=== PATIENT | female | born 1995 | race Caucasian/White ===

== ENCOUNTER → 2017-01-15 | Outpatient (CLI) | payer OTHER ==
--- NOTE | 2017-01-15 13:29 | REP ---
Clinical: Dating and viability. Positive test. Technique: Transabdominal and transvaginal first trimester obstetrical ultrasound with color Doppler evaluation. Findings: Anteverted uterus measures 8.5 x 3.9 x 5.5 cm. Thickened endometrium suggests decidual reaction. A presumed gestational sac is identified with mean sac diameter corresponding to 5 weeks 1 day gestational age. No definable pole or yolk sac identified. Left ovary is not visualized. Right ovary measures 4.4 x 2.8 x 2.4 cm; RI equal 0.46 and includes 2.2 cm hemorrhagic corpus luteal cyst. Impression: Differential diagnosis includes early , spontaneous /blighted ovum, and less likely ectopic . Correlation with serial HCG levels recommended and repeat ultrasound may be obtained as necessary. Signed by Daniel Bean MD 01/15/2017 01:20 P
== END ==
LOC: M LAB 12:28
PROVIDERS: ATTEND Nurse Practitioner Family
DX: Z32.00 Encounter for pregnancy test, result unknown (principal)

== ENCOUNTER → 2017-01-22 | Outpatient (CLI) | payer OTHER ==
--- NOTE | 2017-01-22 12:37 | REP ---
Clinical: Dating and viability. Technique: Transabdominal and transvaginal first trimester obstetrical ultrasound with color Doppler evaluation. Comparison: 01/15/2017. Findings: Anteverted uterus is again identified measuring 9.3 x 4.6 x 6.0 cm and a gestational sac is noted without yolk sac or pole. Mean sac diameter currently measures 10.3 mm corresponding to 5 weeks 5 days gestational age and appears to have appropriately increased from prior examination. No pelvic fluid or gross abnormalities are noted. Impression: Empty gestational sac is again identified but appropriately increased in size when compared to recent prior examination. Differential diagnosis again includes early normal intrauterine , blighted ovum, and less likely ectopic . Correlation with HCG levels is recommended. Signed by Daniel Bean MD 01/22/2017 12:29 P
== END ==
LOC: M RAD 11:38
PROVIDERS: ATTEND Nurse Practitioner Family
DX: Z36 Encounter for antenatal screening of mother (principal); Z3A.01 Less than 8 weeks gestation of pregnancy

== ENCOUNTER → 2017-04-24 | Outpatient (REF) | payer OTHER | LOC: M LAB REF 20:49 | PROVIDERS: ATTEND Physician Assistant Medical | DX: R30.0 Dysuria (principal); R10.9 Unspecified abdominal pain ==

== ENCOUNTER → 2017-05-11 | Outpatient (REF) | payer OTHER | LOC: M LAB REF 20:42 | PROVIDERS: ATTEND Physician Assistant | DX: J02.9 Acute pharyngitis, unspecified (principal) ==

== ENCOUNTER → 2017-11-19 | Outpatient (REF) | payer OTHER | LOC: M LAB REF 19:29 | DX: J02.9 Acute pharyngitis, unspecified (principal) ==

== ENCOUNTER → 2018-07-29 | Outpatient (REF) | payer OTHER ==
[2018-07-29 19:33] LABS: CHLAMYDIA DNA AMPLIFICATION NEGATIVE (NEGATIVE); GC DNA AMPLIFICATION NEGATIVE (NEGATIVE)
== END ==
LOC: M LAB REF 16:42
DX: Z20.2 Contact with and (suspected) exposure to infections with a predominantly sexual mode of transmission (principal)
CPT/HCPCS: 87591

== ENCOUNTER 2019-07-16 17:01 | Emergency (ER) | payer OTHER ==
[~2019-07-16] VITALS: Ht 172.7 cm; Wt 77.3 kg
[2019-07-16 19:53] LABS: BASO # 0.1 10^3/uL (0.0-0.2); EOS # 0.1 10^3/uL (0.0-0.5); EOS % 0.6 % (0.0-3.0); HEMATOCRIT 43.4 % (36.0-47.0); HEMOGLOBIN 13.9 g/dl (12.0-15.5); LYMPH # 2.3 10^3/uL (1.5-5.0); LYMPH % 27.9 % (24.0-44.0); MEAN CORPUSCULAR HEMOGLOBIN 29.6 pg (27.0-33.0); MEAN CORPUSCULAR VOLUME 92.5 fl (80.0-96.0); MONO # 0.6 10^3/uL (0.0-0.8); MONO % 7.5 % (0.0-5.0); NEUTROPHILS # 5.1 10^3/uL (1.5-8.5); NEUTROPHILS % 62.6 % (36.0-66.0); PLATELET COUNT, AUTOMATED 335 10^3/uL (150-450); RED BLOOD COUNT 4.69 10^6/uL (4.00-5.40); WHITE BLOOD COUNT 8.2 10^3/uL (4.0-10.0)
[2019-07-16 20:14] LABS: ALBUMIN 3.8 GM/DL (3.2-5.2); ALT/SGPT 22 U/L (12-78); BILIRUBIN,TOTAL 2.4 MG/DL (0.2-1.0); BLOOD UREA NITROGEN 6 MG/DL (7-18); CALCIUM LEVEL 9.3 MG/DL (8.5-10.1); CARBON DIOXIDE LEVEL 30 MEQ/L (21-32); CHLORIDE LEVEL 107 MEQ/L (98-107); CREATININE FOR GFR 0.61 MG/DL (0.55-1.30); GLOMERULAR FILTRATION RATE > 60.0 (>60); GLUCOSE, FASTING 90 MG/DL (70-100); POTASSIUM SERUM 3.8 MEQ/L (3.5-5.1); SODIUM LEVEL 141 MEQ/L (136-145); TOTAL PROTEIN 7.3 GM/DL (6.4-8.2)
[2019-07-16 21:43] LABS: HCG, SERUM QUALITATIVE NEGATIVE (NEGATIVE)
[2019-07-16] MEDS ORDERED: metroNIDAZOLE (FLAGYL) 500 MG TAB PO ONE (22:15)
[2019-07-16] MEDS ORDERED: cefTRIAXone SOD 250 MG VIAL (J0696) IM ONE (22:15)
[2019-07-16] MEDS ORDERED: AZITHROMYCIN 250 MG TAB PO ONE (22:15)
[2019-07-16] MEDS ORDERED: ULIPRISTAL ACETATE 30 MG TAB (ELLA) PO ONE (22:15)
[2019-07-16] MEDS ORDERED: LIDOCAINE 1% SDV 5 ML VIAL DILUENT ONE (22:15)
[2019-07-17 05:41] VITALS: BP 121/70
[2019-07-17 10:06] LABS: HEPATITIS B SURFACE ANTIBODY NEGATIVE (POSITIVE)
[2019-07-17 10:16] LABS: HEPATITIS B SURFACE ANTIGEN NEGATIVE (NEGATIVE)
[2019-07-17 10:45] LABS: HIV 1&2 SCREEN CENTAUR NEGATIVE (NEGATIVE)
== END 2019-07-17 05:53 | disposition home or self-care (01) ==
LOC: M ED 17:01
DX: T76.21XA Adult sexual abuse, suspected, initial encounter (principal); S20.01XA Contusion of right breast, initial encounter; S20.02XA Contusion of left breast, initial encounter; X58.XXXA Exposure to other specified factors, initial encounter; Y92.008 Other place in unspecified non-institutional (private) residence as the place of occurrence of the external cause
CPT/HCPCS: 36415; 80053; 84703; 85025; 86706; 86780; 86803; 87340; 87389; 96372; 99284; J0696

== ENCOUNTER 2020-10-02 11:14 | Emergency (ER) | payer OTHER ==
[~2020-10-02] VITALS: Ht 170.2 cm; Wt 82.4 kg
--- OUTSIDE RECORDS SUMMARY | 2020-10-02 11:20 | CCD | Continuity of Care Document ---
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[employer] Name Role Phone Pamella Croft AUTM [phone] [facility] AUTM [phone] Problems Active Problems Provider Date Bg Schuster NP Onset: 01/04/2020 Premenstrual dysphoric disorder Juliette Schuster NP Onset: 1 10/13/2019 Social History Type Date Description Comments Sex Unknown Tobacco Use Start: Unknown Never Smoked Cigarettes Tobacco Use Start: Unknown Never Smoked Cigars Tobacco Use Start: Unknown Never Smoked A Pipe Tobacco Use Start: Unknown Never Used Smokeless Tobacco ETOH Use Occasionally consumes alcohol Tobacco Use Start: Unknown Patient has never smoked Recreational Drug Use Denies Drug Use Seat Belt/Car Seat Always uses seat belt Allergies, Adverse Reactions, Alerts Active Allergies Reaction Severity Comments Date NKDA 09/01/2016 NKFA 09/01/2016 NKEA 09/01/2016 Medications Active Medications SIG Qnty Indications Ordering Provide r Date Xulane 150-35mcg/24HR Patches Week ly 1 patch every week, 4th week off to cycle 1units Z30.016 Herber Landaverde M.D. 08/12/2020 Prozac 20mg Capsules take one pill daily starting 2 wk prior to menstral onset 14caps F32.81 Herber Landaverde M.D. 08/12/2020 History Medications No Active Medications Unknown - 08/12/2020 Fluconazole 150mg Tablets take 1 by mouth once on days 1, 3 and 7 #3 3tabs Waqar Lovelace. 07/18/2020 - 08/12/2020 Immunizations Description No Information Available Vital Signs Date Vital Result Comment 08/12/2020 2:04pm BP Systolic 104 mmHg BP Diastolic 70 mmHg Heart Rate 101 /min Respiratory Rate 18 /min Weight 186.38 lb Weight 84.540 kg 01/04/2020 2:02pm BP Systolic 124 mmHg BP Diastolic 72 mmHg Heart Rate 109 /min Body Temperature 97.9 F Weight 190.00 lb Weight 86.184 kg Results Description No Information Available Procedures Description No Information Available Medical Devices Description No Information Available Encounters Type Date Location Provider Dx Diagnosis Office Visit 08/12/2020 2:00p [facility] Juliette Schuster NP F32.81 Premenstrual dysphoric disorder Z30.45 Enctr srvlnc transdermal pat ch hormonal contraceptive device Assessments Date Code Description Provider 08/12/2020 F32.81 Premenstrual dysphoric disorder Juliette Schuster NP 08/12/2020 Z30.45 Encounter for survei llance of transdermal patch hormonal contraceptive device Juliette Schuster NP Plan of Treatment 08/12/2020 - Juliette Schuster NP* F32.81 Premenstrual dysphoric disorder* New Medication:* Prozac 20 mg - take one pill daily starting 2 wk prior to menstral onset * Follow up:* 3 months * Recommendations:* discussed PMDD and use of med for sx control. Willing to try use and would like to restart patch as liked that for method. Discussed use SSRI med for sx and to moniter . If feels sx helped may also see pcp for continued use for daily use. * Z30.45 Encounter for surveillance of transdermal patch hormonal contraceptive device* Recommendations:* restart patch as directed. Functional Status Description No Information Available Mental Status Description No Information Available Referrals Description No Information Available
[2020-10-02] MEDS ORDERED: LORA1TAB4 PO (11:21)
--- OUTSIDE RECORDS SUMMARY | 2020-10-02 11:21 | CCD ---
Author Author [facility] Organization [facility] Address Unknown Phone Unavailable Care Team Providers Care Tank Terminal Gauger Name Role Phone Sylvie Akbar MD Unavailable Unavailable Sylvie Akbar MD Unavailable Unavailable Sylvie Akbar MD Unavailable Unavailable Sylvie Akbar MD Unavailable Unavailable Sylvie Akbar MD Unavailable Unavailable Sylvie Akbar MD Unavailable Unavailable Sylvie Akbar MD Unavailable Unavailable Sylvie Akbar MD Unavailable Unavailable Sylvie Akbar MD Unavailable Unavailable Sylvie Akbar MD Unavailable Unavailable Sylvie Akbar MD Unavailable Unavailable Sylvie Akbar MD Unavailable Unavailable Sylvie Akbar MD Unavailable Unavailable Sylvie Akbar MD Unavailable Unavailable Sylvie Akbar MD Unavailable Unavailable Sylvie Akbar MD Unavailable Unavailable Sylvie Akbar MD Unavailable Unavailable Sylvie Akbar MD Unavailable Unavailable Sylvie Akbar MD Unavailable Unavailable Sylvie Akbar MD Unavailable Unavailable Sylvie Akbar MD Unavailable Unavailable Sylvie Akbar MD Unavailable Unavailable Sylvie Akbar MD Unavailable Unavailable Raffy, Sylvie Boles MD Unavailable Unavailable Raffy, Sylvie Boles MD Unavailable Unavailable Raffy, Sylvie Boles MD Unavailable Unavailable Raffy, Sylvie Boles MD Unavailable Unavailable Raffy, Sylvie Boles MD Unavailable Unavailable Raffy, Sylvie Boles MD Unavailable Unavailable Raffy, Sylvie Boles MD Unavailable Unavailable Raffy, Sylvie Boles MD Unavailable Unavailable Raffy, Sylvie Boles MD Unavailable Unavailable Raffy, Sylvie Boles MD Unavailable Unavailable Raffy, Sylvie Boles MD Unavailable Unavailable Raffy, Sylvie Boles MD Unavailable Unavailable Rfafy, Sylvie Boles MD Unavailable Unavailable Raffy, Sylvie Boles MD Unavailable Unavailable Raffy, Sylvie Boles MD Unavailable Unavailable Raffy, Sylvie Boles MD Unavailable Unavailable Raffy, Sylvie Boles MD Unavailable Unavailable Raffy, Sylvie Boles MD Unavailable Unavailable Raffy, Sylvie Boles MD Unavailable Unavailable Raffy, Sylvie Boles MD Unavailable Unavailable Raffy, Sylvie Boles MD Unavailable Unavailable Raffy, Sylvie Boles MD Unavailable Unavailable Raffy, Sylvie Boles MD Unavailable Unavailable Raffy, Sylive Boles MD Unavailable Unavailable Raffy, Sylvie Boles MD Unavailable Unavailable Raffy, Sylvie Boles MD Unavailable Unavailable Raffy, Sylvie Boles MD Unavailable Unavailable Raffy, Sylvie Boles MD Unavailable Unavailable Raffy, Sylvie Boles MD Unavailable Unavailable Raffy, Sylvie Boles MD Unavailable Unavailable Raffy, Sylvie Boles MD Unavailable Unavailable Raffy, Sylvie Boles MD Unavailable Unavailable Raffy, Sylvie Boles MD Unavailable Unavailable Raffy, Sylvie Boles MD Unavailable Unavailable Raffy, Sylvie Boles MD Unavailable Unavailable Raffy, Sylvie Boles MD Unavailable Unavailable Raffy, Sylvie Boles MD Unavailable Unavailable Raffy, Sylvie Boles MD Unavailable Unavailable Raffy, Sylvie Bolse MD Unavailable Unavailable Raffy, Sylvie Boles MD Unavailable Unavailable Raffy, Sylvie Boles MD Unavailable Unavailable Raffy, Sylvie Boles MD Unavailable Unavailable Raffy, Sylvie Boles MD Unavailable Unavailable Raffy, Sylvie Boles MD Unavailable Unavailable Raffy, Sylvie Boles MD Unavailable Unavailable Raffy, Sylvie Boles MD Unavailable Unavailable Raffy, Sylvie Boles MD Unavailable Unavailable Raffy, Sylvie Boles MD Unavailable Unavailable Raffy, Sylvie Boles MD Unavailable Unavailable Raffy, Sylvie Boles MD Unavailable Unavailable Raffy, Sylvie Boles MD Unavailable Unavailable Raffy, Sylvie Boles MD Unavailable Unavailable [place], Loren Piper MD Unavailable Unavailable [place], Loren Piper MD Unavailable Unavailable [place], Loren Piper MD Unavailable Unavailable [place], Loren Piper MD Unavailable Unavailable [place], Loren Piper MD Unavailable Unavailable [place], Loren Piper MD Unavailable Unavailable [place], Loren Piper MD Unavailable Unavailable [place], Loren Piper MD Unavailable Unavailable [place], Loren Piper MD Unavailable Unavailable [place], Loren Piper MD Unavailable Unavailable [place], Loren Piper MD Unavailable Unavailable [place], Loren Piper MD Unavailable Unavailable [place], Loren Piper MD Unavailable Unavailable [place], Loren Piper MD Unavailable Unavailable [place], Loren Piper MD Unavailable Unavailable [place], Loren Piper MD Unavailable Unavailable [place], Loren Piper MD Unavailable Unavailable [place], Loren Piper MD Unavailable Unavailable [place], Loren Piper MD Unavailable Unavailable [place], Loren Piper MD Unavailable Unavailable [place], Loren Piper MD Unavailable Unavailable [place], Loren Piper MD Unavailable Unavailable [place], Loren Piper MD Unavailable Unavailable [place], Loren Piper MD Unavailable Unavailable [place], Loren Piper MD Unavailable Unavailable [place], Loren Piper MD Unavailable Unavailable [place], Loren Piper MD Unavailable Unavailable [place], Loren Piper MD Unavailable Unavailable [place], Loren Piper MD Unavailable Unavailable [place], Loren Piper MD Unavailable Unavailable [place], Loren Piper MD Unavailable Unavailable [place], Loren Piper MD Unavailable Unavailable [place], Loren Piper MD Unavailable Unavailable [place], Loren Piper MD Unavailable Unavailable [place], Loren Piper MD Unavailable Unavailable [place], Loren Piper MD Unavailable Unavailable [place], Loren Piper MD Unavailable Unavailable [place], Loren Piper MD Unavailable Unavailable [place], Loren Piper MD Unavailable Unavailable [place], Loren Piper MD Unavailable Unavailable [place], Loren Piper MD Unavailable Unavailable [place], Loren Piper MD Unavailable Unavailable [place], Loren Piper MD Unavailable Unavailable [place], Loren Piper MD Unavailable Unavailable [place], Loren Piper MD Unavailable Unavailable [place], Loren Piper MD Unavailable Unavailable [place], Loern Piper MD Unavailable Unavailable [place], Loren Piper MD Unavailable Unavailable [place], Loren Piper MD Unavailable Unavailable [place], Loren Piper MD Unavailable Unavailable [place], Loren Piper MD Unavailable Unavailable [place], Loren Piper MD Unavailable Unavailable [place], Loren Piper MD Unavailable Unavailable [place], Loren Piper MD Unavailable Unavailable [place], Loren Piper MD Unavailable Unavailable [place], Loren Piper MD Unavailable Unavailable [place], Loren Piper MD Unavailable Unavailable [place], Loren Piper MD Unavailable Unavailable [place], Loren Piper MD Unavailable Unavailable [place], Loren Piper MD Unavailable Unavailable [place], Loren Piper MD Unavailable Unavailable [place], Loren Piper MD Unavailable Unavailable [place], Loren Piper MD Unavailable Unavailable [place], Loren Piper MD Unavailable Unavailable [place], Loren Piper MD Unavailable Unavailable [place], Loren Piper MD Unavailable Unavailable [place], Loren Piper MD Unavailable Unavailable [place], Loren Piper MD Unavailable Unavailable [place], Loren Piper MD Unavailable Unavailable [place], Loren Piper MD Unavailable Unavailable [place], Loren Piper MD Unavailable Unavailable [place], Loren Piper MD Unavailable Unavailable [place], Loren Piper MD Unavailable Unavailable [place], Loren Piper MD Unavailable Unavailable [place], Loren Piper MD Unavailable Unavailable [place], Loren Piper MD Unavailable Unavailable Andrade, Kali Billie IMAGER Unavailable Unavailable AndradeRachele Billie IMAGER Unavailable Unavailable Andrade Kali Billie IMAGER Unavailable Unavailable Andrade, Kali Billie IMAGER Unavailable Unavailable Andrade, Kali Billie IMAGER Unavailable Unavailable Andrade, Kali Billie IMAGER Unavailable Unavailable PRYBYLOWSKI, E TWAN PA Unavailable Unavailable PRYBYLOWSKI, E TWAN PA Unavailable Unavailable PRYBYLOWSKI, E TWAN PA Unavailable Unavailable PRYBYLOWSKI, E TWAN PA Unavailable Unavailable PRYBYLOWSKI, E TWAN PA Unavailable Unavailable PRYBYLOWSKI, E TWAN PA Unavailable Unavailable PRYBYLOWSKI, E TWAN PA Unavailable Unavailable PRYBYLOWSKI, E TWAN PA Unavailable Unavailable PRYBYLOWSKI, E TWAN PA Unavailable Unavailable PRYBYLOWSKI, E TWAN PA Unavailable Unavailable PRYBYLOWSKI, E TWAN PA Unavailable Unavailable PRYBYLOWSKI, E TWAN PA Unavailable Unavailable PRYBYLOWSKI, E TWAN PA Unavailable Unavailable PRYBYLOWSKI, E TWAN PA Unavailable Unavailable PRYBYLOWSKI, E TWAN PA Unavailable Unavailable PRYBYLOWSKI, E TWAN PA Unavailable Unavailable TURRIN, BENI Unavailable Unavailable TURRIN, BENI Unavailable Unavailable TURRIN, BENI Unavailable Unavailable TURRIN, BENI Unavailable Unavailable Loren CANADA Unavailable Unavailable SHAH, KALI KWAKU DYE HOUSE SUPERVISOR Unavailable Unavailable SHAH, KALI KWAKU DYE HOUSE SUPERVISOR Unavailable Unavailable SHAH, KALI KWAKU DYE HOUSE SUPERVISOR Unavailable Unavailable SHAH, KALI KWAKU DYE HOUSE SUPERVISOR Unavailable Unavailable SHAH, KALI KWAKU DYE HOUSE SUPERVISOR Unavailable Unavailable SHAH, KALI KWAKU DYE HOUSE SUPERVISOR Unavailable Unavailable SHAH, KALI KWAKU DYE HOUSE SUPERVISOR Unavailable Unavailable SHAH, KALI KWAKU DYE HOUSE SUPERVISOR Unavailable Unavailable SHAH, KALI KWAKU DYE HOUSE SUPERVISOR Unavailable Unavailable SHAH, KALI KWAKU DYE HOUSE SUPERVISOR Unavailable Unavailable SHAH, KALI KWAKU DYE HOUSE SUPERVISOR Unavailable Unavailable SHAH, KALI KWAKU DYE HOUSE SUPERVISOR Unavailable Unavailable SHAH, KALI KWAKU DYE HOUSE SUPERVISOR Unavailable Unavailable SHAH, KALI KWAKU DYE HOUSE SUPERVISOR Unavailable Unavailable SHAH, KALI KWAKU DYE HOUSE SUPERVISOR Unavailable Unavailable SHAH, KALI KWAKU DYE HOUSE SUPERVISOR Unavailable Unavailable SHAH, KALI KWAKU DYE HOUSE SUPERVISOR Unavailable Unavailable SHAH, KALI KWAKU DYE HOUSE SUPERVISOR Unavailable Unavailable SHAH, KALI KWAKU DYE HOUSE SUPERVISOR Unavailable Unavailable SHAH, KALI KWAKU DYE HOUSE SUPERVISOR Unavailable Unavailable SHAH, KALI KWAKU DYE HOUSE SUPERVISOR Unavailable Unavailable SHAH, KALI KWAKU DYE HOUSE SUPERVISOR Unavailable Unavailable SHAH, KALI KWAKU DYE HOUSE SUPERVISOR Unavailable Unavailable Meghan Mireles PA Unavailable Unavailable Meghan Mireles PA Unavailable Unavailable Meghan Mireles Unavailable Unavailable Meghan Mireles PA Unavailable Unavailable Meghan Mireles PA Unavailable Unavailable Meghan Mireles PA Unavailable Unavailable Meghan Mireles PA Unavailable Unavailable Meghan Mireles PA Unavailable Unavailable FroidMeghan roth PA Unavailable Unavailable Meghan Mireles PA Unavailable Unavailable Meghan Mireles PA Unavailable Unavailable Meghan Mireles PA Unavailable Unavailable Meghan Mireles PA Unavailable Unavailable Meghan Mireles PA Unavailable Unavailable Meghan Mireles PA Unavailable Unavailable Meghan Mireles PA Unavailable Unavailable Meghan Mireles PA Unavailable Unavailable Meghan Mireles PA Unavailable Unavailable Meghan Mireles PA Unavailable Unavailable Meghan Mireles PA Unavailable Unavailable Meghan Mireles PA Unavailable Unavailable Meghan Mireles PA Unavailable Unavailable Meghan KO MD Unavailable Unavailable Meghan KO MD Unavailable Unavailable Meghan KO MD Unavailable Unavailable Meghan KO MD Unavailable Unavailable Meghan KO MD Unavailable Unavailable Meghan KO MD Unavailable Unavailable Meghan KO MD Unavailable Unavailable Meghan KO MD Unavailable Unavailable Meghan KO MD Unavailable Unavailable Re-disclosure Warning The records that you are about to access may contain information from federally-assisted alcohol or drug abuse programs. If such information is present, then the following federally mandated warning applies: This information has been disclosed to you from records protected by federal confidentiality rules (42 CFR part 2). The federal rules prohibit you from making any further disclosure of this information unless further disclosure is expressly permitted by the written consent of the person to whom it pertains or as otherwise permitted by 42 CFR part 2. A general authorization for the release of medical or other information is NOT sufficient for this purpose. The Federal rules restrict any use of the information to criminally investigate or prosecute any alcohol or drug abuse patient.The records that you are about to access may contain highly sensitive health information, the redisclosure of which is protected by Article 27-F of the [facility] Public Health law. If you continue you may have access to information: Regarding HIV / AIDS; Provided by facilities licensed or operated by the [facility] Office of Mental Health; or Provided by the [facility] Office for People With Developmental Disabilities. If such information is present, then the following [facility] mandated warning applies: This information has been disclosed to you from confidential records which are protected by state law. State law prohibits you from making any further disclosure of this information without the specific written consent of the person to whom it pertains, or as otherwise permitted by law. Any unauthorized further disclosure in violation of state law may result in a fine or group home sentence or both. A general authorization for the release of medical or other information is NOT sufficient authorization for further disc losure. Allergies and Adverse Reactions Type Description Substance Reaction Status Data Source(s ) No Known Drug Allergies No Known Drug Allergies [facility] No Known Environmental Allergies No Known Environmental Al lergies [facility] No Known Food Allergies No Known Food Allergies [facility] Family History Family Member Name Family Member Gender Family Member Status Date o f Status Description Data Source(s) Unknown Male Problem [facility] ([facility]) Unknown Unknown Problem [facility] ([facility] Encounters Encounter Providers Location Date Indications Data Source(s ) Emergency Attender: BENI Espinalsultant: Alexa solorzano MD 10/01/2020 04:57:00 AM EST - 10/01/2020 05:42:00 AM EST [facility] Patient discharged. Emergency Attender: CHAYA Millerant: Alexa Perry MD 09/01/2020 06:12:00 AM EST - 09/01/2020 06:48:00 AM EST [facility] Patient discharged. Outpatient Attender: KWAKU SHAH NPConsultant: Alexa trimble MD 08/12/2020 02:02:00 PM EST - 08/12/2020 02:02:00 PM [facility] Outpatient Attender: KWAKU SHAH DYE HOUSE SUPERVISOR Family Practice 08/12/2020 01 :00:00 PM EST [facility] ([facility]) Emergency Attender: GARETT KO MDConsultant: Alexa pastor MD 07/06/2020 06:03:00 AM EST - 07/06/2020 08:25:00 AM [facility] Patient discharged. Attender: Elvi Simeon 09:24:00 AM EDT - 02/15/2020 09:24:00 AM EDT [facility] ([facility]) OutpatientOFFICE VISIT, EST Attender: Bree munoz 02/14/2020 03:15:00 PM EDT - 02/14/2020 03:15:00 PM EDT Encntr for f/u exam aft trtmt for cond oth than malig neoplmEncounter for oth general cnsl and advice on contraceptionOther sex counseling [facility] ([facility]) Encntr for f/u exam aft trtmt for cond o th than malig neoplm Encounter for oth general cnsl and advic e on contraception Other sex counseling OutpatientOFFICE VISIT, EST. Post AB Attender: Bree Simeon 01/24/2020 03:30:00 PM EDT - 01/24/2020 03:30:00 PM ED T Encntr for f/u exam aft trtmt for cond oth than malig neoplmEncounter for oth general cnsl and advice on contraceptionOther sex counseling [facility] ([facility]) Encntr for f/u exam aft trtmt for cond o th than malig neoplm Encounter for oth general cnsl and advic e on contraception Other sex counseling Attender: Bree Simeon 12/29 11:30:00 AM EDT - 01/17/2020 11:30:00 AM EDT Encounter for elective termination of pregnancyProblems related to unwanted pregnancyEncounter for initial prescription of contraceptive pillsEncounter for ot general cnsl and advice on contraceptionOther sex counseling [facility] ([facility]) Encounter for elective termination of pr egnancy Problems related to unwanted Encounter for initial prescription of co ntraceptive pills Encounter for ot general cnsl and advic e on contraception Other sex counseling Outpatient Attender: KWAKU SHAH NPConsultant: Alexa trimble MD 01/04/2020 01:52:00 PM EDT - 01/04/2020 01:52:00 PM EDT [facility] Attender: TWAN Singletary 12:29:00 PM EST - 10/30/2019 12:29:00 PM EST [facility] Attender: Billie Simeon 10/24/2019 01:00:00 PM EST - 10/24/2019 01:00:00 PM EST Trichomonal vulvovaginitisEncntr for f/u exam aft trtmt for cond oth than malig neoplmEncounter for surveillance of contraceptive pillsAcute vaginitisEncounter for ot general cnsl and advice on cont raceptionOther sex counseling [facility] ([facility]) Trichomonal vulvovaginitis Encntr for f/u exam aft trtmt for cond o th than malig neoplm Encounter for surveillance of contracept jam pills Acute vaginitis Encounter for oth general cnsl and advic e on contraception Other sex counseling Attender: Billie Simeon 10/05/2019 02:45:00 PM EST - 10/05/2019 02:45:00 PM EST Encounter for other preprocedural examinationEncounter for elective termination of pregnancyEncounter for other specified special examinationsUnspecified blood type, Rh positiveOther sex counseling [facility] ([facility]) Encounter for other preprocedural examin ation Encounter for elective termination of pr egnancy Encounter for other specified special ex aminations Unspecified blood type, Rh positive Other sex counseling Attender: Bree Simeon 09/01 10:00:00 AM EST - 09/29/2019 10:00:00 AM EST NauseaEncounter for initial prescription of contraceptive pillsEncounter for preprocedural laboratory examinationEncounter for other preprocedural examinationWeeks of gestation of not specified Encounter for oth general cnsl and advice on contraceptionOther sex counselingHigh risk heterosexual behaviorEncntr screen for infections w sexl mode of transmissUnspecified blood type, Rh positiveEncounter for other specified special examinations state, incidentalProblems related to unwanted pregnancyEncounter for test, result positive [facility] ([facility]) Nausea Encounter for initial prescription of co ntraceptive pills Encounter for preprocedural laboratory e xamination Encounter for other preprocedural examin ation Weeks of gestation of not spec ified Encounter for oth general cnsl and advic e on contraception Other sex counseling High risk heterosexual behavior Encntr screen for infections w sexl mode of transmiss Unspecified blood type, Rh positive Encounter for other specified special ex aminations state, incidental Problems related to unwanted Encounter for test, result pos itive Medications Medication Brand Name Start Date Product Form Dose Route Admi nistrative Instructions Pharmacy Instructions Status Indications Reaction Description Data Source(s) 5-325 mg 09/01/2020 12:00:00 AM EST tablet 10 TAKE ONE TABLET BY MOUTH EVERY 8 HOURS NEEDED FOR PAIN MAXIMUM DAILY DOSE = 3 TAKE ONE TABLET BY MOUTH EVERY 8 HOURS NEEDED FOR PAIN MAXIMUM DAILY DOSE = 3 SOLD: 09/01/2020 [facility] 500 mg 09/01/2020 12:00:00 AM EST capsule 20 TAKE ONE CAPSULE BY MOUTH TWICE A DAY FOR TEN DAYS TAKE ONE CAPSULE BY MOUTH TWICE A DAY FOR TEN DAYS ELIZA [facility] No Active Medications 08/12/2020 12:00:00 AM EST completed [facility] ([facility] 168 HR Ethinyl Estradiol 0.82816 MG/HR / norelgestromin 0.89643 MG/HR Transdermal Patch [Xulane] Xulane 08/12/2020 12:00:00 AM EST active [facility] ([facility]) Fluoxetine 20 MG Oral Capsule [Prozac] Prozac 08/12/2020 12:00:00 A M EST active [facility] ([facility]) Fluconazole 150 MG Oral Tablet Fluconazole 07/18/2020 12:00:00 AM EST ORAL completed [facility] ([facility]) 150 mg 07/18/2020 12:00:00 AM EST tablet 3 TAKE ONE TABLET BY MOUTH ONCE ON DAYS 1, 3 AND 7 TAKE ONE TABLET BY MOUTH ONCE ON DAYS 1, 3 AND 7 SOLD: 07/18/2020 [facility] 25 mg 07/07/2020 12:00:00 AM EST tablet 28 TAKE ONE TABLET BY MOUTH FOUR TIMES A DAY NEEDED FOR ANXIETY TAKE ONE TABLET BY MOUTH FOUR TIMES A DA Y NEEDED FOR ANXIETY SOLD: 07/18/2020 [facility] 4 mg 01/17/2020 12:00:00 AM EDT tablet 4 TAKE ONE TABLET BY MOUTH EVERY 4 HOURS NEEDED TAKE ONE TABLET BY MOUTH EVERY 4 HOURS NEEDED SOLD: 01/17/2020 [facility] Ibuprofen 800 MG Oral Tablet ibuprofen 800 mg tablet ibuprof en 800 mg tablet 01/17/2020 12:00:00 AM EDT active 1 tab po every 8 hours prn [facility] ([facility]) Acetaminophen 300 MG / Codeine Phosphate 30 MG Oral Tablet acetaminophen 300 mg- codeine 30 mg tablet acetaminophen 300 mg-codeine 30 mg tablet 01/17/2020 12:00:00 AM EDT completed 1-2 tabs po every 4 hours prn pain *not to exceed 12 tablets in 24hour period* [facility] ([facility]) Ondansetron 4 MG Oral Tablet ondansetron HCl 4 mg tabl et ondansetron HCl 4 mg tablet 01/17/2020 12:00:00 AM EDT active 1 tab po every 4 hours prn (#4) [facility] ([facility]) Mifepristone 200 MG Oral Tablet [Mifeprex] Mifeprex 20 0 mg tablet Mifeprex 200 mg tablet 01/17/2020 12:00:00 AM EDT complete d Mifepristone 200 MG Oral Tablet [Mifeprex] [facility] ([facility]) 800 mg 01/17/2020 12:00:00 AM EDT tablet 10 TAKE ONE TABLET BY MOUTH EVERY 8 HOURS NEEDED TAKE ONE TABLET BY MOUTH EVERY 8 HOURS NEEDED SOLD: 01/17/2020 [facility] Aubra EQ 0.1 mg-20 mcg tablet {21 (Ethinyl Estradiol 0 .02 MG / Levonorgestrel 0.1 MG Oral Tablet) / 7 (Inert Ingredients 1 MG Oral Tablet) } Pack 01/17/2020 12:00:00 AM EDT active Aubra 28 Day Pack [facility] ([facility]) Eth estra-Levonorgest 0.02-0.1 MG (21) O ral Tablet / Inert 1 MG (7) Oral Tablet 28 Day Pack 0.1-20 mg-mcg LEVONORGESTREL/ETHINYL ESTRADIOL 01/17/2020 12:00:00 AM EDT tablet 84 TAKE ONE TABLET BY MOUTH GREG DAY TAKE ONE TABLET BY MOUTH EVERY DAY SOLD: 01/17/2020 [facility] 300-30 mg 01/17/2020 12:00:00 AM EDT tablet 10 TAKE 1-2 TABLETS BY MOUTH EVERY 4 HOURS NEEDED FOR PAIN MAXIMUM DAILY DOSE = 12 TAKE 1-2 TABLETS BY MOUTH EVERY 4 HOURS NEEDED FOR PAIN MAXIMUM DAILY DOSE = 12 SOLD: 01/17/2020 [facility] Misoprostol 0.2 MG Oral Tablet misoprostol 200 mcg tab let misoprostol 200 mcg tablet 01/17/2020 12:00:00 AM EDT completed 4 tabs buccally 24-48 hrs after mifepristone (#4) [facility] ([facility]) Misoprostol 0.2 MG Oral Tablet misoprostol 200 mcg tab let misoprostol 200 mcg tablet 01/17/2020 12:00:00 AM EDT completed 4 tabs buccally 24-48 hrs after mifepristone (#4) [facility] ([facility]) 150-35 mcg/24 hr 01/04/2020 12:00:00 AM EDT patch weekly 3 APPLY ONE PATCH TO THE SKIN EVERY WEEK 4TH WEEK TO CYCLE APPLY ONE PATCH TO THE SKIN EVERY WEEK 4TH WEEK TO CYCLE SOLD: 02/03/2020 [facility] 500 mg 01/04/2020 12:00:00 AM EDT tablet 14 TAKE ONE TABLET BY MOUTH TWICE A DAY FOR 7 DAYS TAKE ONE TABLET BY MOUTH TWICE A DAY FOR 7 DAYS SOLD: 01/04/2020 [facility] 150-35 mcg/24 hr 01/04/2020 12:00:00 AM EDT patch weekly 3 APPLY ONE PATCH TO THE SKIN EVERY WEEK 4TH WEEK TO CYCLE APPLY ONE PATCH TO THE SKIN EVERY WEEK 4TH WEEK TO CYCLE SOLD: 01/04/2020 [facility] 500 mg 10/30/2019 12:00:00 AM EST tablet 14 TAKE ONE TABLET BY MOUTH TWICE A DAY FOR 7 DAYS TAKE ONE TABLET BY MOUTH TWICE A DAY FOR 7 DAYS SOLD: 10/30/2019 [facility] Metronidazole 500 MG Oral Tablet metronidazole 500 mg tablet metronidazole 500 mg tablet 10/30/2019 12:00:00 AM EST active 1 tab po bid x 7d (#14) [facility] ([facility]) Metronidazole 500 MG Oral Tablet metronidazole 500 mg tablet metronidazole 500 mg tablet 10/24/2019 12:00:00 AM EST complete d 1 tab po bid x 7d (#14[facility] 10/24/2019 12:00:00 AM EST tablet 14 TAKE ONE TABLET BY MOUTH TWICE A DAY FOR 7 DAYS TAKE ONE TABLET BY MOUTH TWICE A DAY FOR 7 DAYS SOLD: 10/24/2019 [facility] 4 mg 10/06/2019 12:00:00 AM EST tablet 10 TAKE ONE TABLET BY MOUTH EVERY 4 HOURS NEEDED TAKE ONE TABLET BY MOUTH EVERY 4 HOURS NEEDED SOLD: 10/06/2019 [facility] 800 mg 10/05/2019 12:00:00 AM EST tablet 10 TAKE ONE TABLET BY MOUTH EVERY 8 HOURS NEEDED TAKE ONE TABLET BY MOUTH EVERY 8 HOURS NEEDED SOLD: 10/05/2019 [facility] 0.35 mg 09/29/2019 12:00:00 AM EST tablet 84 TAKE ONE TABLET BY MOUTH EVERY DAY TAKE ONE TABLET BY MOUTH EVERY DAY SOLD: 09/30/2019 [facility] Ortho Micronor 0.35 mg tablet {28 (Norethindrone 0.35 MG Ora l Tablet) } Pack 09/29/2019 12:00:00 AM EST active Ortho Micronor 28 Day Pack [facility] ([facility]) 25 mg 09/29/2019 12:00:00 AM EST tablet 30 TAKE ONE TABLET BY MOUTH EVERY 4 TO 6 HOURS NEEDED FOR NAUSEA TAKE ONE TABLET BY MOUTH EVERY 4 TO 6 HO URS NEEDED FOR NAUSEA SOLD: 09/30/2019 [facility] Insurance Providers Payer name Policy type / Coverage type Policy ID Covered constitution party ID Covered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 Has been eating or sleeping or not been depressed. She has had anxiety. No unusual behavior, paranoia, delusions, suicidal thoughts or self-injury inflicted. No hallucinations. The symptoms are described as severe. No injury is present.REVIEW OF SYSTEMSNo headache, weakness, palpitations, abdominal pain or vomiting. No diarrhea, black stools, fever, sorethroat or cough. No urinary frequency, skin rash, enlarged lymph nodes, joint pain or weight loss. Nolaceration. The patient has had dizziness and numbness. She has h ad mild, squeezing central chestpain. She has had moderate difficulty breathing at rest. All other systems reviewed and are negative.PAST HISTORYSee nurses notes. Problems: Panic Attack. Anxiety Reaction. Additional Surgeries: Appendectomy. Medications: None. Allergies: No Known Drug Allergy.SOCIAL HISTORYNever smoker. Occasional alcohol use. No drug use.ADDITIONAL NOTESThe nursing notes have been reviewed with agreement regarding the chief complaint, HPI, ROS, PMH and 2 Clinical Report - Physicians/Mid Levels [facility] Emergency Department [address] [place] [address] Phone #: ext- [phone] 10/01/2020 04:58 Patient: WINDY HARO Sex: F : 1995 Age: 24y patient medications and allergies.PHYSICAL EXAMVital Signs: 10/01/2020 04:59 BP: 117/81. MAP: 93. HR: 113. RR: 19. O2 saturation: 100%. Temp: 97.1F. Have been reviewed. Oxygen saturation normal.Appearance: Alert. No acute distress. Appearance is normal. Anxious.Eyes: Pupils equal, round and reactive to light.Neck: Normal inspection. Neck supple.CVS: Normal heart rate and rhythm. Heart sounds normal.Respiratory: Painless inspiration. Breath sounds normal. Chest nontender.Abdomen: Soft and nontender.Back: No tenderness.Skin: Skin warm and dry. Normal skin color. Normal skin turgor.Extremities: Extremities exhibit normal ROM. No lower extremity edema.Psych / Neuro: Oriented X 3. Speech normal. Cognition normal. Thought process and content normal.No apparent hallucinations or delusions. Denies suicidal thoughts. Insight and judgement normal.Cranial nerves normal (as tested). No cerebellar findings. No motor deficit. No sensory deficit.Reflexes normal.LABS, X-RAYS, AND EKGEKG: No acute process. No acute ischemia. Normal EKG. Normal sinus rhythm. Rate: 99/min.Normal ST and T waves. EKG unchanged when compared with prior EKG. (07-06-20). The study hasbeen interpreted contemporaneously by me. The EKG appears to be a good tracing. Interpretation time:05:10 10/01/2020.PROGRESS AND PROCEDURESCourse of Care: 05:26 10/01/20. pt has Hx of recurrent anxiety/panic attacks but on no meds for it; ptadvised to f/u w [facility] for SSRI therapy; pt understands and agrees; pt feels better w ativan po. Patient counseled in person regarding the patient's stable condition, test results, diagnosis and need for follow-up. Patient agrees with plan of care. Disposition: Condition: good and stable. Discharge decision based on the following: patient's condition is stable; patient's condition is imp roved; patient is ambulatory; patient is active; patient drinking fluids; patient eating; patient's pain is controlled; patient's exam is improved; improving condition on repeat evaluation; social support is good; transportation is available; follow-up is available; clinical impression is consistent with outpatient treatment.CLINICAL IMPRESSION Anxiety reaction with hyperventilation. 3 Clinical Report - Physicians/Mid Levels [facility] Emergency Department [address] [place] [address] Phone #: ext- [phone] 10/01/2020 04:58 [id number] Sex: F : 1995 Age: 24yINSTRUCTIONS (PLEASE FOLLOW UP WITH YOUR FAMILY MD IN NEXT FEW DAYS FOR TREATMENT OF YOUR RECURRENT ANXIETY). Warnings: Further evaluation is necessary. It is very important to follow up with a healthcare provider. GENERAL WARNINGS: Return or contact your physician immediately if your condition worsens or changes unexpectedly, if not improving as expected, or if other problems arise. Specifically return if pain, vomiting, bleeding, breathing difficulty or fever greater than 102 degrees F and not controlled by acetaminophen or ibuprofen. Your Current Medications: . No home medication. Prescription Medications: lorazepam 1 mg tablet Take 1 tablet at bedtime for 3 days -- Dispense 3 tablet. Refills: 0. Substitution permitted. Pharmacy - [facility] - [address], [place] [phone]. FaxNumber: . Follow-up: Return to the emergency department as needed. Follow up with your healthcare provider in three days even if well. Call for an appointment. Reason for referral: evaluation, treatment and Treatment of your anxiety. Summary of care provided to patient via paper. Understanding of the discharge instructions verbalized by patient. Expected course of illness, discharge instructions, activity level, diet, prescriptions x1, follow-up appointment and risks and benefits of treatment reviewed with patient and understanding verbalized. Agrees to plan of care.(Electronically signed by Beni Baez M.D. 10/01/2020 06:00) Name Value Range Interpretation Code Description Data Erica rce(s) Supporting Document(s) ID Date Data Source [id number] 09/01/2020 06:12:00 AM [facility] 1 Medication Reconciliation Report [facility] Emergency Department [address] [place] [address] Phone #: [phone] ext [phone] 09/01/2020 06:08 Patient: WINDY HARO Sex: F : 1995 Age: 24yWeight: 90.7 kgHeight/Length: 67 in.BMI: 31.3ALLERGIES: No Known Drug AllergyThe patient's Home Medications are listed below:NONE.The source(s) of the original Home Medication information:Not obtained.The following Medications were given to the patient in the Emergency Department:None.The following Medications were prescribed to the patient:Ansonia 5 mg-325 mg tablet Take 1 tablet every eight hours as needed for pain -- Dispense 10 tablet.Refills: 0. Substitution permitted.Pharmacy - [facility] #24 - [address], [place] [phone]. .amoxicillin 500 mg capsule Take 1 capsule twice a day -- Dispense 20 capsule. Refills: 0. Substitutionpermitted.Pharmacy - [facility] #83 - [address] [facility] ; [place], [place] [phone]. . -- Chaya Canada Name Value Range Interpretation Code Description Data Erica rce(s) Supporting Document(s) ID Date Data Source [id number] 09/01/2020 06:12:00 AM [place] [address] Medication Administration Record [facility] Emergency Department [address] [place] [address] Phone #: ext- [phone] 09/01/2020 06:08 Patient: WINDY HARO Sex: F : 1995 Age: 24yWeight: 90.7 kgHeight/Length: 67 inBMI: 31.3ALLERGIES: No Known Drug AllergyDate/Time Medication Administered Medication Ordered Name Value Range Interpretation Code Description Data Erica rce(s) Supporting Document(s) ID Date Data Source [id number] 09/01/2020 06:12:00 AM [place] [address] General Instructions [facility] Emergency Department [address] [place] [address] Phone #: ext [phone] 09/01/2020 06:08 Patient: WINDY HARO Sex: F : 1995 Age: 24yDental caries (localized)INSTRUCTIONSWarnings: GENERAL WARNINGS: Return or contact your physician immediately if your conditionworsens or changes unexpectedly, if not improving as expected, or if other problems arise.Prescription Medications:Ansonia 5 mg-325 mg tablet Take 1 tablet every eight hours as needed for pain -- Dispense 10 tablet.Refills: 0. Substitution permitted.[facility] [phone]. FaxNumber: [phone].amoxicillin 500 mg capsule Take 1 capsule twice a day -- Dispense 20 capsule. Refills: 0. Substitutionpermitted.[facility]74 - [address], [place] [phone]. .Understanding of the discharge instructions verbalized by patient.Follow-up with: Alexa Perry MD, [facility], , , , , , Follow up Wednesday if not well. Call for an appointment. ADDITIONAL INFORMATIONDental Cavity 2 General Instructions [facility] Emergency Department [address] [place] [address] Phone #: ext- [phone] 09/01/2020 06:08 Patient: WINDY HARO Sex: F : 1995 Age: 24yA dental cavity is a pit or crater in the surface of a tooth. This exposes the sensitive inner layer of thetooth and causes pain. If the cavity isn't treated, it will get bigger. It may enter the pulp and cause aninfection or pocket of pus (abscess) in the bone at the root end of the tooth. An infection in the tooth jose armando much more serious problem than a cavity. If the tooth gets infected, you'll need a root canal or thewhole tooth taken out (extraction).The pain in your tooth may be worse if you eat sweets or have hot or cold drinks. It may spread fromthe tooth to your ear or the part of your jaw on the same side.Home careFollow these tips when caring for yourself at home: Don't have sweets or hot and cold foods and drinks. Your tooth may be sensitive to changes in temperature. If your tooth is chipped or cracked, or if there is a large open cavity, put oil of cloves directly on the tooth to ease pain. You can buy oil of cloves at pharmacies. Some pharmacies carry an pbiy-txc-plhsvez toothache kit. This contains a paste that you can put on the exposed tooth to make it less sensitive. 3 General Instructions [facility] Emergency Department [address] [place] [address] Phone #: ext- [phone] 09/01/2020 06:08 Patient: WINDY HARO Sex: F : 1995 Age: 24y Put a cold pack on your jaw over the sore area to help reduce pain. You may use owrg-jvt-covfvlo medicine to ease pain, unless another medicine was prescribed. If you have long-term (chronic) liver or kidney disease, talk with your healthcare provider before using acetaminophen or ibuprofen. Also talk with your provider if you've had a stomach ulcer or GI(gastrointestinal) bleeding. If you have signs of an infection, you will be given an antibiotic. Take it as directed.Follow-up careFollow up with your dentist, or as advised. Your pain may go away with the t reatment given today. Butonly a dentist can diagnose and treat this problem to prevent further tooth damage.Call [phone] if any of these occur: Trouble swallowing or breathing Weakness or fainting Abnormal drowsiness Headache or stiff neckWhen to get medical adviceCall your healthcare provider right away if any of these occur: Red or swollen face Pain gets worse or spreads to your neck Fever of 100.4 F (38C) or higher, or as directed by your provider Pus drains from the tooth or gum [phone] [employer]. [address] [place] [address], [place] [address]. All rights reserved. This information is not intended as asubstitute for professional medical care. Always follow your healthcare professional's instructions. You have been given the following additional information: Dental Cavity 4 General Instructions [facility] Emergency Department [address] [place] [address] Phone #: ext- [phone] 09/01/2020 06:08 Patient: WINDY HARO Sex: F : 1995 Age: 24y(Electronically signed by Chaya Canada 09/01/2020 07:00) Name Value Range Interpretation Code Description Data Erica rce(s) Supporting Document(s) ID Date Data Source [id number] 09/01/2020 06:12:00 AM EST [facility] 1 Clinical Report - Nurses [facility] Emergency Department [address] [place] [address] Phone #: ext- [phone] 09/01/2020 06:08 Patient: WINDY HARO Sex: F : 1995 Age: 24yTRIAGEArrived by private vehicle. Historian: patient. Unaccompanied.Acuity: LEVEL 4.Chief Complaint: LEFT UPPER TOOTHACHE and SWELLING OF JAW / FACE.Alert. No acute distress.This started today. ( Patient arrives c/o left sided upper dental pain. Pt states this am she woke up andher back molar on the left upper side was painful and swollen. Pt states she also noticed her face to beswollen to her left side. Pt denies any difficulty breathing, pt able to handle secretions and speak in fullsentences. Pt states she had left over amoxicillin from a sinus infection that she took yesterday morning forher dental pain and swelling. 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 --06:16 09/01/20 Mariann Scruggs R.N.06:09 09/01/20. BP: 138/92. MAP: 107. HR: 85. RR: 18. O2 saturation: 99% on room air. Temp: 97 F.Pain level now: 04/08. --06:16 09/01/20 Mariann Scruggs R.N.Weight: 90.7 kg stated. Height/Length: 67 inches Per Patient. BMI: 31.3. --06:11 09/01/20 Mariann Scruggs R.N.MedicationsNone. --06:15 09/01/20 Mariann Scruggs R.N.AllergiesNo Known Drug Allergy. --06:15 09/01/20 Mariann Scruggs R.N.PROBLEMS:Anxiety Reaction.Other Disease. --06:15 09/01/20 Mariann Scruggs R.N.ADDITIONAL SURGERIES:Appendectomy. --06:15 09/01/20 Mariann Scruggs R.N.HistoryPAST MEDICAL HX: Immunizations: up-to-date.SOCIAL HX: Never smoker. Occasional alcohol use. No drug use. The patient was offered HIV testingbut declined. Patient education was provided. The patient was offered hepatitis C testing but declined.Patient education was provided. ( COVID screen negative). The patient has not traveled outside the [address] [place] [address] - [facility] Emergency Department [address] [place] [address] Phone #: rgr- [phone] 09/01/2020 06:08 Patient: WINDY HARO Sex: F : 1995 Age: 24y [place] Infectious disease exposure: No infectious disease exposure. Patient is not a known carrier of tuberculosis, hepatitis, HIV, MRSA or VRE. Patient is not a known carrier of CRE. SELF HARM ASSESSMENT: Self harm assessment was performed. The patient answered "no" to the question(s) "Have you recently felt down, depressed, or hopeless?", "Do you have thoughts of harming or killing yourself?", "Do you have a plan for harming or killing yourself?" and "Have you recently had thoughts about harming or killing others?". ABUSE ASSESSMENT: Abuse assessment. The patient had positive responses to the question(s) "Do you feel safe in your home?", "Are you afraid to go home?" and "Has anyone hurt you or threatened to hurt you?". Abuse denied. NUTRITIONAL RISK ASSESSMENT: The nutritional risk assessment revealed no deficiencies. FUNCTIONAL ASSESSMENT: Functional assessment: no impairments noted. LEARNING NEEDS ASSESSMENT: The learning needs assessment revealed no barriers. FALL RISK ASSESSMENT: Fall risk assessment completed. No risk factors identified. SKIN INTEGRITY ASSESSMENT: Skin integrity risk assessment completed. No skin integrity risk identified. --06:16 09/01/20 Mariann Scruggs R.N. FAMILY HX: No significant family medical history. --06:34 09/01/20 Chaya Canada. Interventions Identification band on patient. To treatment room. --06:16 09/01/20 Mariann Scruggs R.N.PHYSICAL ASSESSMENTAmbulatory to room. Patient gowned.GENERAL / NEURO / PSYCH: Alert. Oriented X 4. Appears in no acute distress.HEENT: Pupils equal, round and reactive to light. Pharynx within normal limits. Voice within normallimits. Mouth abnormal on inspection. ( swelling and redness to back left upper molar. Swelling noted toleft cheek. Pt able to handle secretions, no difficulty breathing noted, pt able to speak in full sentences.).Mucous membranes are pink.RESPIRATORY: Respirations not labored.CVS: Capillary refill less than 2 seconds.SKIN: Skin is warm and dry. Normal skin turgor. --06:17 09/01/20 Mariann Scruggs R.N.NURSING PROGRESS NOTESReassurance given. Two patient identifiers checked. Call light placed in reach. Side rails up x 2. Bedplaced in lowest position. Brakes of bed on. --06:16 09/01/20 Mariann Iniguez R.N. 3 Clinical Report - Nurses [facility] Emergency Department [address] [place] [address] Phone #: ext- [phone] 09/01/2020 06:08 [id number] Sex: F : 1995 Age: 24yDISPOSITION / DISCHARGE No learning barriers present. Discharge instructions provided and reviewed. Reviewed warnings. Reviewed medication(s) side effects, precautions, dosing and course information. Prescription(s) given to the patient and sent electronically to pharmacy. Medication(s) for home use given to the patient per protocol. Treatments reviewed. Reviewed referrals. Patient verbalized understanding. Written instructions provided in Palauan. The patient was discharged home. She left ambulatory and via private vehicle. Patient driving. --06:48 09/01/20 Mariann Scruggs R.N. 06:47 09/01/20. BP: deferred. HR: deferred. RR: deferred. O2 saturation: deferred. Temp: deferred. Pain level now deferred. Additional comments: Patient here for under 1 hr. --06:48 09/01/20 Mariann Scruggs R.N.Locked/Released at 09/01/2020 06:48 by Mariann Scruggs R.N. Name Value Range Interpretation Code Description Data Erica rce(s) Supporting Document(s) ID Date Data Source [id number] 09/01/2020 06:12:00 AM EST [facility] 1 Clinical Report - Physicians/Mid Levels [facility] Emergency Department [address] [place] [address] Phone #: ext- [phone] 09/01/2020 06:08 Patient: WINDY HARO Sex: F : 1995 Age: 24y Time Seen: 06:22 09/01/2020. Arrived- By private vehicle. Historian- patient.HISTORY OF PRESENT ILLNESS Chief Complaint: DENTAL PAIN. This started yesterday and is still present. Pain described as moderate. No sore throat, mouth sores, nasal discharge or congestion or ear pain. No swollen jaw or jaw pain. She has had toothache, swelling of the face and facial pain. (Patient has pain for one day to the left tooth, but noticed facial swelling. Took an old amoxicillin from before. pain with eating but no problems swallowing. She called her dentist but they only are taking emergencies. Pain worse with eating. couldn't sleep due to pain). Similar symptoms previously. Recent medical care: Not recently seen/assessed.REVIEW OF SYSTEMSNo fever, cough, difficulty breathing, nausea or abdominal pain. No headache, skin rash or enlargedlymph nodes. Denies current . All other systems reviewed and are negative.PAST HISTORYSee nurses notes. Problems: Anxiety Reaction. Additional Surgeries: Appendectomy. Medications: None. Allergies: No Known Drug Allergy.SOCIAL HISTORYNever smoker.FAMILY HISTORYNo significant family medical history. 2 Clinical Report - Physicians/Mid Levels [facility] Emergency Department [address] [place] [address] Phone #: ext- [phone] 09/01/2020 06:08 Patient: WINDY HARO Sex: F : 1995 Age: 24yADDITIONAL NOTESThe nursing notes have been reviewed.PHYSICAL EXAMVital Signs: 09/01/2020 06:09 BP: 138/92. MAP: 107. HR: 85. RR: 18. O2 saturation: 99% on room air.Temp: 97 F. Pain level now: 8/10.Appearance: Alert. No acute distress.Eyes: Pupils equal, round and reactive to light. Conjunctivae and eyelids normal.ENT: Dental decay and tenderness. Ears normal. Nose normal. Pharynx normal. Lips normal. Uvulamidline. No muffled or hoarse voice or trismus. (dental king at the mesial border of the second leftpremolar. no gingival swelling or fluctulance).Neck: Normal inspection. Trachea midline. No adenopathy. Thyroid normal. Neck supple.CVS: Normal heart rate and rhythm. Pulses normal.Respiratory: No respiratory distress.Skin: Normal skin color. No rash.Extremities: Extremities exhibit normal ROM.Neuro: Oriented X 3. No motor deficit. No sensory deficit.PROGRESS AND PROCEDURESCourse of Care: 06:36 09/01/20. continue with Amoxicillin. Ansonia for pain. Disposition: Discharged. Condition: stable.CLINICAL IMPRESSION Dental caries (localized)INSTRUCTIONS Warnings: GENERAL WARNINGS: Return or contact your physician immediately if your condition worsens or changes unexpectedly, if not improving as expected, or if other problems arise. Prescription Medications: Ansonia 5 mg-325 mg tablet Take 1 tablet every eight hours as needed for pain -- Dispense 10 tablet. Refills: 0. Substitution permitted. [facility] [address] [place] [phone]. . amoxicillin 500 mg capsule Take 1 capsule twice a day -- Dispense 20 capsule. Refills: 0. Substitution permitted. [facility] - [address] [place] [phone]. FaxNumber: [phone]. 3 Clinical Report - Physicians/Mid Levels [facility] Emergency Department [address] [place] [address] Phone #: ext- [phone] 09/01/2020 06:08 Patient: WINDY HARO Sex: F : 1995 Age: 24y Understanding of the discharge instructions verbalized by patient. Follow-up with: Alxea Perry MD, [facility], , , , , , Follow up Wednesday if not well. Call for an appointment.(Electronically signed by Chaya Canada 09/01/2020 07:00) Name Value Range Interpretation Code Description Data Erica rce(s) Supporting Document(s) ID Date Data Source [id number] 07/08/2020 09:59:00 AM [place] [address] PHONE: [phone] FAX: [phone] Name .................. : ESTRELLITA Mercer Acct Number.................. : [id number] [facility]....[facility]... : [id number] Stay type ............. : E/R Discharge Date......... ... : 07/06/20 Admit Date ......... : 07/06/20 Admit Phys .................... : MAIKEL MCNEAL Date of ....... : 1995 Family Phys ................... : ORLANDO STINSON Phone .................. : [phone] Age ................................ : 24 Film# .................. .:[id number] Sex ................................. : F Unsigned transcriptions are preliminary reports and do not represent a medical or legal document CHEST 2 VIEWS [id number] COMPLETE:07/06/20 08:19 KJE [id number] Reason(s): Shortness of Breath CHEST X-RAY: PA AND LATERAL VIEWS HISTORY: Shortness of breath. COMPARISON: None. FINDINGS: Normal cardiomediastinal silhouette. Pulmonary vessels are normal. Clear lungs. No pleural effusion. No acute or focal osseous abnormality. IMPRESSION: No active disease is seen in the chest. Electronically Reviewed and Signed By Felipe Man MD , 07/08/20 09:59, APM Transcribe Initials: TEJ , Transcribe Date: 07/06/20 09:15, Dictation Date: Copy for: ORLANDO PIPER via fax Copy for: EMERGENCY DEPT via modem Copy for: 710 MED REC DISCHARGED Page 1 of 1 Name Value Range Interpretation Code Description Data Erica rce(s) Supporting Document(s) ID Date Data Source [id number] 07/08/2020 09:39:00 [place] [address] RESPIRATORY CARE REPORT ==== ---------NAME------- NUMBER SEX AGE ADMIT DISC. XRAY# F/C KINGSLEY Mercer [id number] F 24 07/06/20 07/06/20 [id number] X6B E/R DATE OF : 1995 M/R# [id number] #: [id number] TR-07 LOCATION: EMERGENCY DEPT EKG 40999 COMP LETE:07/06/20 08:58 [facility] [address] PHYSICIAN: MAIKEL MCNEAL Name Value Range Interpretation Code Description Data Erica rce(s) Supporting Document(s) ID Date Data Source [id number] 07/06/2020 06:03:00 AM EST [facility] 1 OrderSheet [facility] Emergency Department [address] [place] [address] Phone #: ext- [phone] 07/06/2020 06:01 Patient: WINDY HARO Sex: F : 1995 Age: 24yWEIGHT:79.3 kg (S) HEIGHT:68 inches (S) BMI:26.6ALLERGIES: No Known Drug AllergyCHIEF COMPLAINT: anxiousDIAGNOSIS: Anxiety, AnxietyLAB ORDERSOrder Description Priority Entered Acknowledged InitialedAcetaminophen STAT 06:26 07/06/2020 Ack'd: 06:27 07:21 Kael,Level Mariann Caro R.N. Physician; R.N.Salicylate Level STAT 06:26 07/06/2020 Ack'd: 06:27 07:21 Garett Scruggs Laura Laura R.N. Physicia n; R.N.Urinalysis (Clean STAT 06:26 07/06/2020 Ack'd: 06:27 07:44 Geneva,Catch) Mariann Caro R.N. Physician; R.N.Urine Drug Screen STAT 06:26 07/06/2020 Ack'd: 06:27 07:44 [place], Mariann Caro R.N. Physician; R.N.ETOH STAT 06:26 07/06/2020 Ack'd: 06:27 07:21 Garett Scruggs Laura Laura R.N. Physician; R.NStephenCBC w Diff STAT 06:26 07/06/2020 Ack'd: 06:27 07:21 Garett Scruggs Laura Laura R.N. Physician; R.N.CMP STAT 06:26 07/06/2020 Ack'd: 06:27 07:21 Garett Scruggs Laura Laura R.N. Physician; R.N.HCG Serum Qual STAT 06:31 07/06/2020 Ack'd: 06:47 07:21 Garett Scruggs Laura Laura R.N. Physician; R.NStephen 2 OrderSheet [facility] Emergency Department [address] [place] [address] Phone #: ext- [phone] 07/06/2020 06:01 Patient: WINDY HARO Sex: F : 1995 Age: 24yDIAGNOSTIC STUDY ORDERSOrder Description Priority Entered Acknowledged InitialedChest 2 View STAT 08:00 07/06/2020 Ack'd: 08:03 08:21 Elinor(Oxygen?(No)) Qiana Hensley RN Physician; R.N. Reason for Study: Shortness of BreathMEDICATION/IV/DRIP/FLUID ORDERSOrder Description Priority Entered Acknowledged InitialedGENERAL ORDERSOrder Description Priority Entered Acknowledged InitialedEKG 06:26 07/06/2020 06:27 Garett Scruggs R.N. Physician;Pulse oximeter 06:26 07/06/2020 06:27 Kael(Spot Check) Garett Waite R.N. Physician;[Electronically signed by Qiana Meyers R.N. (08:28 07/06/2020)][Electronically signed by Ag Paulson Physician (08:33 07/06/20 20)][Electronically signed by Garett Ko Physician (07:38 07/07/2020)][Electronically locked by Qiana Meyers R.N. (08:28 07/06/2020)] Name Value Range Interpretation Code Description Data Erica rce(s) Supporting Document(s) ID Date Data Source [id number] 07/06/2020 06:03:00 AM [facility] 1 Medication Reconciliation Report [facility] Emergency Department [address] [place] [address] Phone #: ext- [phone] 07/06/2020 06:01 Patient: WINDY HARO Sex: F : 1995 Age: 24yWeight: 79.3 kgHeight/Length: 68 in.BMI: 26.6ALLERGIES: No Known Drug AllergyThe patient's Home Medications are listed below:NONE.The source(s) of the original Home Medication information:Not obtained.The following Medications were given to the patient in the Emergency Department:None.The following Medications were prescribed to the patient:hydroxyzine HCl 25 mg tablet Take 1 tablet four times a day as needed for 7 days -- For anxiety.Dispense 28 tablet. Refills: 0. Substitution permitted.Pharmacy - [id number] - [address], [place] [phone]. . -- Physician Sudarshan Name Value Range Interpretation Code Description Data Erica rce(s) Supporting Document(s) ID Date Data Source [id number] 07/06/2020 06:03:00 AM [facility] 1 Medication Administration Record [facility] Emergency Department [address] [place] [address] Phone #: ext- [phone] 07/06/2020 06:01 Patient: WINDY HARO Sex: F : 1995 Age: 24yWeight: 79.3 kgHeight/Length: 68 inBMI: 26.6ALLERGIES: No Known Drug AllergyDate/Time Medication Administered Medication Ordered Name Value Range Interpretation Code Description Data Erica rce(s) Supporting Document(s) ID Date Data Source [id number] 07/06/2020 06:03:00 AM EST [facility] 1 General Instructions [facility] Emergency Department [address] [place] [address] Phone #: ext [phone] 07/06/2020 06:01 Patient: WINDY HARO Sex: F : 1995 Age: 24yAnxiety reaction.(Electronically signed by Garett Ko, Physician 07/07/2020 07:38)Anxiety reaction with hyperventilation.INSTRUCTIONSNo alcohol.(Avoid caffeine and chocolate.).Warnings: Further evaluation is necessary.SEDATIVE MEDICATION: You were given sedative medication during your visit. Do not drive or operatedangerous machinery.GENERAL WARNINGS: Return or contact your physician immediately if your condition worsens orchanges unexpectedly, if not improving as expected, or if other problems arise.Your Current Medications: .No home medication.Prescription Medications:hydroxyzine HCl 25 mg tablet Take 1 tablet four times a day as needed for 7 days -- For anxiety.Dispense 28 tablet. Refills: 0. Substitution permitted.Pharmacy - [facility] ; [place], [place] [id number]. . 2 General Instructions [facility] Emergency Department [address] [place] [address] Phone #: ext- [phone] 07/06/2020 06:01 Patient: WINDY HARO Sex: F : 1995 Age: 24yFollow-up:Follow up with your healthcare provider in three days if not better. Call for an appointment. Reason forreferral: evaluation. Summary of care provided to patient via paper.Understanding of the discharge instructions verbalized by patient. ADDITIONAL INF ORMATIONPanic AttackA panic attack is an extreme fear reaction that comes on for no clear reason. There is often a fearthat something terrible will happen or that you may . The attack may last a few minutes up to a fewhours. Between attacks, things will seem quite normal. This condition has a psychological cause andcan be treated with the help of a therapist or psychiatrist. Medicine can be very helpful for thisproblem.Panic attacks usually come on suddenly, reaches a peak within minutes, and includes at least 4 ofthese symptoms: Palpitations, pounding heart, or accelerated heart rate Sweating Chills or heat sensations Trembling or shaking Sensations of shortness of breath or smothering Feelings of choking Chest pain or discomfort Nausea or abdominal distress Feeling dizzy, unsteady, light-headed, or faint Numbness or tingling sensations Fear of dying Fear of going crazy or of losing control Feelings of unreality, strangeness, or detachment from the environmentMany of these symptoms can be linked to physical problems, so it is sometimes necessary to rule outconditions like thyroid disorders, heart disease, gastrointestinal problems, and others. They can also 3 General Instructions [facility] Emergency Department [address] [place] [address] Phone #: ext- [phone] 07/06/2020 06:01 Patient: WINDY HARO Sex: F : 1995 Age: 24ystart as physical symptoms, but psychologically we may react to them in a fearful way, worsening theway we react and feel.Home care Try to find the sources of stress in your life. They may not be obvious. These may include: o Daily hassles of life which pile up (traffic jams, missed appointments, car troubles). o Major life changes, both good (new baby, job promotion) and bad (loss of job, loss of loved one). o Feeling that you have too many responsibilities and can't take care of everything at once. o Helplessness: feeling like your problems are too much for you to handle. Notice how your body reacts to stress. Learn to listen to your body signals so that you can take action before the stress becomes severe. Try to be aware of what you were doing before the reaction started; this may give you clues to things that can trigger a reaction. It may be situations in your life, or what you were doing at the time. When possible, avoid or reduce the cause of stress. Avoid hassles, limit the amount of change that is happening in your life at one time or take a break when you feel overloaded. Unfortunately, you can't stay away from many stressful situations. So you need to learn how to manage st ress better. Many proven methods will reduce your anxiety. These include simple things like exercise, good nutrition, and adequate rest. Also, there are certain techniques that are helpful: relaxation and breathing exercises, visualization, biofeedback, meditation, or simply taking time-out to clear your mind. For more information about this, ask your doctor or go to a local bookstore and review the many books and tapes available on this subject.Follow- up careFollow-up with your healthcare provider, or as advised.Call [phone] if you: Have suicidal thoughts, a suicide plan, and the means to carry out the plan Have serious thoughts of hurting someone else Have trouble breathing 4 General Instructions [facility] Emergency Department [address] [place] [address] Phone #: ext- [phone] 07/06/2020 06:01 Patient: WINDY HARO Sex: F : 1995 Age: 24y Are very confused Feel very drowsy or have trouble awakening Faint or lose consciousness Have new chest pain that becomes more severe, lasts longer, or spreads into your shoulder, arm, neck, jaw, or back Have a very rapid or irregular heartbeat Have a seizureWhen to seek medical adviceCall your healthcare provider right away if any of these occur: Worsening of your symptoms to the point of feeling [id number] Feeling that you may try to harm yourself or another Can't sleep or eat for 3 days in a row Increased pain with breathing Increasing feeling of weakness or dizziness Cough with dark colored sputum (phlegm) or blood Fever of 100.4F (38C) or higher, or as directed by your healthcare provider Swelling, pain, or redness in one leg Requests by family or friends for you to seek help for your symptoms [phone] [employer]. [address] [place] [address]. All rights reserved. This information is not intended as asubstitute for professional medical care. Always follow your healthcare professional's instructions. You have been given the following additional information: Panic Attack(Electronically signed by Ag Paulson, Physician 07/06/2020 08:33) 5 General Instructions [facility] Emergency Department [address] [place], [place] [address] Phone #: ext- [phone] 07/06/2020 06:01 Patient: WINDY HARO Sex: F : 1995 Age: 24y Name Value Range Interpretation Code Description Data Erica rce(s) Supporting Document(s) ID Date Data Source [id number] 07/06/2020 06:03:00 AM EST [facility] 1 Clinical Report - Nurses [facility] Emergency Department [address] [place] [address] Phone #: ext- [phone] 07/06/2020 06:01 Patient: WINDY HARO Sex: F : 1995 Age: 24yTRIAGEArrived by private vehicle. Historian: patient. Accompanied by friend.Acuity: LEVEL 3.Chief Complaint: (anxiety).Alert. No acute distress.Onset. (3 days). ( Patient reports for the past 3 days she has been having increased anxiety. Pt statingshe is now having chest tightness. Pt denies sob, chills/fevers, n/v/d. Pt states she has a hx of anxiety anddenies being prescribed any medication.).Treatment CEMENT WORKER:None. --06:07 07/06/20 Mariann Scruggs R.N.06:03 07/06/20. BP: 120/83. MAP: 95. HR: 108. RR: 19. O2 saturation: 100% on room air. Temp: 97.9 F.Pain level now: 0/10. --06:07 07/06/20 Mariann Scruggs R.N.Weight: 79.3 kg stated. Height/Length: 68 inches Per Patient. BMI: 26.6. --06:04 07/06/20 Mariann Scruggs R.N.MedicationsNone. --06:04 07/06/20 Mariann Scruggs R.N.AllergiesNo Known Drug Allergy. --06:04 07/06/20 Mariann Scruggs R.N.PROBLEMS:Anxiety Reaction. --06:05 07/06/20 Mariann Scruggs R.N.ADDITIONAL SURGERIES:Appendectomy. --06:05 07/06/20 Mariann Scruggs R.N.HistoryPAST MEDICAL HX: Immunizations: up-to-date. Last normal menstrual period- Jun 23.SOCIAL HX: Never smoker. Occasional alcohol use. No drug use. The patient was offered HIV testingbut declined. Patient education was provided. The patient was offered hepatitis C testing but declined.Patient education was provided. The patient has not traveled outside the [place]Infectious disease exposure: No infectious disease exposure. Patient is not a known carrier of tuberculosis,hepatitis, HIV, MRSA or VRE. Patient is not a known carrier of CRE.SELF HARM ASSESSMENT: Self harm assessment was performed. The patient answered "no" to the 2 Clinical Report - Nurses [facility] Emergency Department [address] [place] [address] Phone #: ext- [phone] 07/06/2020 06:01 Patient: IWNDY HARO Sex: F : 1995 Age: 24y question(s) "Have you recently felt down, depressed, or hopeless?", "Do you have thoughts of harming or killing yourself?", "Do you have a plan for harming or killing yourself?" and "Have you recently had thoughts about harming or killing others?". ABUSE ASSESSMENT: Abuse assessment. The patient had positive responses to the question(s) "Do you feel safe in your home?", "Are you afraid to go home?" and "Has anyone hurt you or threatened to hurt you?". Abuse denied. NUTRITIONAL RISK ASSESSMENT: The nutritional risk assessment revealed no deficiencies. FUNCTIONAL ASSESSMENT: Functional assessment: no impairments noted. LEARNING NEEDS ASSESSMENT: The learning needs assessment revealed no barriers. FALL RISK ASSESSMENT: Fall risk assessment completed. No risk factors identified. SKIN INTEGRITY ASSESSMENT: Skin integrity risk assessment completed. No skin integrity risk identified. --06:07/06/20 Mariann Scruggs R.N. Interventions Identification band on patient. To treatment room. --06:07/06/20 Mariann Scruggs R.N.PHYSICAL ASSESSMENTAmbulatory to room. Patient gowned.GENERAL / NEURO / PSYCH: Alert. Oriented X 4. Appears in no acute distress. Appears anxious.HEENT: Pupils equal, round and reactive to light. No facial asymmetry noted. Mucous membranes arepink.RESPIRATORY: Respirations not labored. Chest nontender. Breath sounds within normal limits.CVS: Normal sinus rhythm noted. Capillary refill less than 2 seconds. Pulses within normal limits.GI / : Abdomen soft and nontender and normal bowel sounds.SKIN: Skin intact. Skin is warm and dry. Normal skin turgor. --06:07/06/20 Mariann Scruggs R.N.NURSING PROGRESS NOTESMonitoring of patient in place. Patient gowned. Reassurance given. Two patient identifiers checked.Call light placed in reach. Side rails up x 2. Bed placed in lowest position. Brakes of bed on. --06:03/18 Mariann Scruggs R.N. EKG time: (06:12 07/06/2020). EKG was performed by a nurse and shown to the ED physician. --06:16 07/06/20 Mariann Scruggs R.N. The patient is calm and resting quietly. Care transferred and report given. --07:20 07/06/20 Mariann Scruggs R.N. 07:20 07/06/20. BP: 96/67. MAP: 76. HR: 65. RR: 16. O2 saturation: 100% on room air. Pain level now: 3 Clinical Report - Nurses [facility] Emergency Department [address] [place] [address] Phone #: ext- [phone] 07/06/2020 06:01 [facility]O [id number] Sex: F : 1995 Age: 24y 0/10. --07:20 07/06/20 Mariann Scruggs R.N. The patient reports no complaints and she is calm and resting quietly. ( Pt was using phone upon entering room, NAD; Pt states she feels much less anxious than when first arriving, anxiety currently on scale 4/10.). RESPIRATORY: No respiratory distress. CVS: Denies chest pain. --07:44 07/06/20 Qiana Meyers R.N. 07:43 07/06/20. BP: 99/71. MAP: 80. HR: 77. RR: 18. O2 saturation: 100% on room air. Pain level now: 0/10. --07:44 07/06/20 Qiana Meyers R.N. Patient ID band checked for patient name and birthdate: patient confirmed. Instructions provided to collect clean catch urine and patient verbalized understanding. Clean catch urine collected; sample sent to lab for urinalysis. Specimen labeled in the presence of the patient. --07:44 07/06/20 Qiana Meyers R.N. 08:00 07/06/20. BP: 96/66. MAP: 76. HR: 58. RR: 18. O2 saturation: 100%. --08:26 07/06/20 Qiana Meyers R.N. late entry - 08:00 07/06/20. Reassessment acuity: LEVEL 3. Rounding: Pain: assessed pain level. Position: states comfortable. Proximity of possessions / care items: call light within easy reach. Set expectations: advised patient of rounding protocol timing and asked if they needed anything else at this time. The patient reports no complaints and she is calm and resting quietly. GENERAL / NEURO / PSYCH: The patient reports anxiety is still present but improving. Patient waiting for disposition. --08:26 07/06/20 Qiana Meyers R.N. 08:10 07/06/20. Patient walked to radiology with mask and radiography technician. --08:21 07/06/20 Elinor Jennings RN 08:17 07/06/20. Patient walked back from radiology with mask and radiography technician. --08:21 07/06/20 Elinor Jennings RN.DISPOSITION / DISCHARGE Departure time: late entry - 08:25 07/06/2020. Condition at departure: improved and stable. ( aware of VS and is okay with d/c). No learning barriers present. Discharge instructions provided and reviewed with the patient. Reviewed warnings (please see paper copy). Reviewed medication(s) side effects, precautions, dosing and course information. Prescription(s) sent electronically to pharmacy (Hydroxyzine). Reviewed diet. Patient verbalized understanding. Written instructions provided in Palauan. The patient was discharged by the physician. She was discharged home and unaccompanied at time of discharge. She left ambulatory and via private vehicle. Patient driving. --08:28 07/06/20 Qiana Meyers R.N. 08:25 07/06/20. BP: 98/59. ED physician notified. MAP: 72. HR: 62. RR: 18. O2 saturation: 100% on room air. Temp: 97.8 F (oral). Pain level now: 0/10. --08:28 07/06/20 Qiana Meyers R.N. 4 Clinical Report - Nurses [facility] Emergency Department [address] [place] [address] Phone #: ext- [phone] 07/06/2020 06:01 Patient: WINDY HARO Sex: F : 1995 Age: 24yLocked/Released at 07/06/2020 08:28 by Qiana Meyers R.N. Name Value Range Interpretation Code Description Data Erica rce(s) Supporting Document(s) ID Date Data Source [id number] 07/06/2020 06:03:00 AM EST [facility] 1 Clinical Report - Physicians/Mid Levels [facility] Emergency Department [address] [place] [address] Phone #: ext- [phone] 07/06/2020 06:01 Patient: WINDY HARO Sex: F : 1995 Age: 24y Time Seen: 06:16 07/06/2020. Arrived- By private vehicle. Not in custody. Historian- patient.HISTORY OF PRESENT ILLNESS Chief Complaint: ANXIOUS. This started just prior to arrival today. (Now better in ED). No situational problems or recent drug use or alcohol consumption. She has exhibited a behavior change. (Anxiety). She was not found wandering and is compliant with medication. Has been eating or sleeping or not been depressed. She has had anxiety. No anger, unusual behavior, paranoia, delusions or suicidal thoughts. No self-injury inflicted or hallucinations. The symptoms are described as moderate. No injury is present. Similar symptoms previously.REVIEW OF SYSTEMSNo headache, dizziness, weakness, chest pain or palpitations. No abdominal pain, vomiting, diarrhea,black stools or numbness. No fever, sore throat, cough, difficulty breathing or urinary frequency. No skinrash, enlarged lymph nodes, joint pain, weight loss or laceration.PAST HISTORYPast history not negative. See nurses notes. Other disease. ( Anxiety). Surgeries: Appendectomy.SOCIAL HISTORYNever smoker. Occasional alcohol use. No drug use. No place to stay.ADDITIONAL NOTESThe nursing notes have been reviewed with agreement regarding the chief complaint, HPI, ROS, PMH andpatient medications and allergies.PHYSICAL EXAMVital Signs: 07/06/2020 06:03 BP: 120/83. MAP: 95. HR: 108. RR: 19. O2 saturation: 100% on room air.Temp: 97.9 F. Pain level now: 0/10. Have been reviewed and appear to be correct. Blood pressurenormal. Tachycardic. Respiratory rate normal. Temperature normal. Oxygen saturation normal.Appearance: Alert. No acute distress. Appearance is normal. No apparent distress. (Appearsrelaxed, calm and in no distress). Does not appear to be anxious.Eyes: Pupils equal, round and reactive to light.Neck: Normal inspection. Neck supple.CVS: Normal heart rate and rhythm. Heart sounds normal. 2 Clinical Report - Physicians/Mid Levels [facility] Emergency Department [address] [place] [address] Phone #: ext- [phone] 07/06/2020 06:01 Patient: WINDY HARO Sex: F : 1995 Age: 24y Respiratory: Painless inspiration. Breath sounds normal. Chest nontender. Abdomen: Soft and nontender. Back: No tenderness. Skin: Skin warm and dry. Normal skin color. Normal skin turgor. (Some tattoos). Extremities: Extremities exhibit normal ROM. No lower extremity edema. Psych / Neuro: Oriented X 3. Mood and affect normal. Speech normal. Cognition normal. Thought process and content normal. Insight and judgement normal. Cranial nerves normal (as tested). No cerebellar findings. No motor deficit. No sensory deficit.LABS, X-RAYS, AND EKGNote - Tests: (EKG - NSR @ 94).PROGRESS AND PROCEDURESCourse of Care: 07:00 Jul 06 2020. Patient is stable. 07:00 Jul 06 2020. I am signing over care of this pt. to Dr. Paulson. Labs are pending. EKG is unremarkable. Pt. is in no distress at all and seems completely relaxed. She is not tachypneic, tachycardic or manifesting any behavioral abnormality. She has not required any meds.CLINICAL IMPRESSION Anxiety reaction.(Electronically signed by Garett Ko, Physician 07/07/2020 07:38) Disposition decision: 08:20 07/06/2020.LABS, X-RAYS, AND EKGEKG: Normal EKG: independently viewed by me. Normal sinus rhythm. Normal [place] interval. Normal QRScomplexes. Normal STs and T waves. No ectopy.Chest X-ray: Normal Chest X-Ray: independently viewed by me. Normal heart size. Normal mediastinum.Normal soft tissues. No infiltrates present. No pneumothorax present.Laboratory Tests: Laboratory tests have been ordered, with results reviewed and considered in themedical decision making process. Beta-HCG, Qual Serum: (JULIANO: 07/06/2020 07:07) ( MsgRcvd 07/06/2020 07:49) Final results Test Result Flag Units (Reference) HCG SERUM QUAL NEGATIVE (NORMAL: NEGAT 3 Clinical Report - Physicians/Mid Levels [facility] Emergency Department [address] [place] [address] Phone #: [phone] 07/06/2020 06:01 Patient: WINDY HARO Sex: F : 1995 Age: 24y HCG SERUM QL REENTER NEGATIVE (NORMAL: NEGAT { KIT LOT # [id number] ){ KIT EXP DATE06.04.21 ){ PROCEDURAL CONTROL VALID)Acetaminophen Level: (JULIANO: 07/06/2020 07:07) ( MsgRcvd 07/06/2020 07:38) Final results Test Result Flag Units (Reference) ACETAMINOPHEN <5.0 UG/ML (0.0 - 30.0)Salicylate Level: (JULIANO: 07/06/2020 07:07) ( MsgRcvd 07/06/2020 07:38) Final results Test Result Flag Units (Reference) SALICYLATE <0.3 L mg/dL (2.0 - 20.0)ETOH: (JULIANO: 07/06/2020 07:07) ( HigRcvd 07/06/2020 07:38) Final results Test Result Flag Units (Reference) ALCOHOL <10.0 MG/DL ALCOHOL % 0.00 % (0.00 - 0.01) *FOR MEDICAL PURPOSES ONLY*CBC w Diff: (JULIANO: 07/06/2020 07:07) ( [facility] 07/06/2020 07:30) Final results Test Result Flag Units (Reference) CBC W/AUTOMATED DIFF COMPLETE BLOOD COUNT WBC 7.6 10/uL (4.2 - 11.0) RBC 4.76 10/uL (4.20 - 5.40) HEMOGLOBIN 14.0 g/dL (12.0 - 16.0) HEMATOCRIT 42.0 % (37.0 - 47.0) MCV 88.2 fL (81.0 - 101) MCH 29.4 pg (27.0 - 34.0) MCHC 33.3 g/dL (31.0 - 36.0) RDW 12.2 % (11.5 - 14.5) PLATELETS 310 10/uL (150 - 450) MPV 11.0 H fL (7.4 - 10.4) NEUT 58.4 % (37.0 - 80.0) LYMPH 32.5 % (25.0 - 40.0) MONO 6.0 % (3.0 - 8.0) EOS 1.6 % (0.0 - 7.0) BASO 1.1 % (0.0 - 2.5) %IG 0.4 H % (0.0 - 0.0) %NRBC 0.0 % (0.0 - 0.0) #NEUT 4.42 10/uL (2.00 - 6.90) #LYMPH 2.45 10/uL (0.60 - 3.40) #MONO 0.45 10/uL (0.00 - 0.90) #EOS 0.12 10/uL (0.00 - 0.70) #BASO 0.08 10/uL (0.00 - 0.20) #IG 0.03 10/uL (0.00 - 0.10) #NRBC 0.00 10/uL (0.00 - 0.00) MANUAL DIFF NOT INDICATED RBC MORPH NOT INDICATEDCMP: (JULIANO: 07/06/2020 07:07) ( MsgRcvd 07/06/2020 07:38) Final results Test Result Flag Units (Reference) COMPREHENSIVE METABOLIC PANEL COMPREHENSIVE METABOLIC PANEL 4 Clinical Report - Physicians/Mid Levels [facility] Emergency Department [address] [place] [address] Phone #: [phone]- [phone] 07/06/2020 06:01 Patient: WINDY HARO Sex: F : 1995 Age: 24y SODIUM 138 mEq/L (134 - 153) POTASSIUM 3.6 mEq/L (3.6 - 5.0) CHLORIDE 101 mEq/L (98 - 107) CO2 29 MEQ/L (22 - 30) GLUCOSE 96 MG/DL (65 - 110) BUN 5 L MG/DL (7 - 21) CREATININE 0.5 L MG/DL (0.7 - 1.5) BUN/CREAT 10 (8 - 27) TOTAL PROTEIN 7.6 G/DL (6.3 - 8.2) ALBUMIN 4.5 G/DL (3.9 - 5.0) GLOBULIN 3.1 GM/DL (2.4 - 3.2) A/G RATIO 1.5 (0.8 - 2.0) CALCIUM 9.5 MG/DL (8.4 - 10.2) TOTAL BILI 1.2 MG/DL (0.2 - 1.3) ALKALINE PHOS 89 U/L (38 - 126) SGOT/AST 18 U/L (5 - 40) SGPT/ALT 14 U/L (7 - 56) ANION GAP 8.0 mmol/L (8.0 - 16.0) AGE 24 yrs NON-AA GFR >60 mL/min AFR AMER GFR >60 mL/min Male GFR Interprentation 20-49 yrs >60 mL/min Normal 50-59 yrs >56 mL/min Normal 60-69 yrs >49 mL/min Normal 70-79yrs >42 mL/min Normal 80 and above >35 mL/min Normal Female GFR Interpretation 20-39 yrs >60 mL/min Normal 40-49 yrs >58 mL/min Normal 50-59 yrs >51 mL/min Normal 60-69 yrs >45 mL/min Normal 70-79 yrs >39 mL/min Normal 80 and above >32 mL/min Normal.PROGRESS AND PROCEDURESCourse of Care: 08:03 Jul 06 2020. No anxiety. (Patient rechecked. Feels much better goes throughperiods of panic. Discussed labs and follow up. Discussed Atarax use if needed. Benefits verses risks ofmed discussed. Return if worsen.). Disposition: Condition: stable.CLINICAL IMPRESSION Anxiety reaction with hyperventilation.INSTRUCTIONS No alcohol. (Avoid caffeine and chocolate.). Warnings: Further evaluation is necessary. SEDATIVE MEDICATION: You were given sedative medication during your visit. Do not drive or operate 5 Clinical Report - Physicians/Mid Levels [facility] Emergency Department [address] [place] [address] Phone #: [phone] 07/06/2020 06:01 Patient: WINDY HARO Sex: F : 1995 Age: 24y dangerous machinery. GENERAL WARNINGS: Return or contact your physician immediately if your condition worsens or changes unexpectedly, if not improving as expected, or if other problems arise. Your Current Medications: . No home medication. Prescription Medications: hydroxyzine HCl 25 mg tablet Take 1 tablet four times a day as needed for 7 days -- For anxiety. Dispense 28 tablet. Refills: 0. Substitution permitted. Pharmacy - [id number] [address], [place] [id number]. . Follow-up: Follow up with your healthcare provider in three days if not better. Call for an appointment. Reason for referral: evaluation. Summary of care provided to patient via paper. Understanding of the discharge instructions verbalized by patient.(Electronically signed by Ag Paulson, Physician 07/06/2020 08:33) Name Value Range Interpretation Code Description Data [facility] rce(s) Supporting Document(s) ID Date Data Source [id number] 07/06/2020 08:24:00 AM [facility] Name Value Range Interpretation Code Description Data [facility](s) Supporting Document(s) DRUG SCREEN URINE [facility] URINE DRUG SCREEN Amphetamine [Presence] in Urine by Screen method NEGATIVE NORMAL: N EGATIVE [facility] BARBITURATES NEGATIVE NORMAL: NEGATIVE [facility] BENZO NEGATIVE NORMAL: NEGATIVE [facility] COCAINE NEGATIVE NORMAL: NEGATIVE [facility] Tetrahydrocannabinol [Presence] in Urine NEGATIVE NORMAL: NEGATIVE [facility] OPIATES NEGATIVE NORMAL: NEGATIVE [facility] Phencyclidine [Presence] in Urine by Screen method NEGATIVE NOR MAL: NEGATIVE [facility] \\BLDo\\URINE DRUG SCR EEN INTERPRETATION\\BLDx\\ THE CUTOFFF LEVELS FOR DETECTION ARE FOLLOWS: AMPHETAMINES 1000 ng/ml BARBITUARATES 200 ng/ml BENZODIAZEPINES 100 ng/ml THC 50 ng/ml PHENCYCLIDINE 25 ng/ml OPIATES 300 ng/ml COCAINE 300 ng/ml ALL POSITIVES ARE CONSIDERED PRESUMPTIVE POSITIVE CONFIRMATION WILL BE PERFORMED AT PHYSICIAN REQUEST. ID Date Data Source [id number] 07/06/2020 08:15:00 AM [facility] Name Value Range Interpretation Code Description Data [facility](s) Supporting Document(s) [facility] UR[facility] SOURCE R [facility] COLOR yellow NORMAL: Yellow [facility] CLARITY hazy NORMAL: Clear [facility] Specific gravity of Urine by Test strip 1.015 1.001 - 1.030 [facility] pH 6 5 - 9 [facility] al Glucose [Mass/volume] in Urine by Test strip NORM NORMAL: Negat jam [facility] Bilirubin.total [Presence] in Urine by Test strip NEG NORMAL: Negative [facility] Ketones [Presence] in Urine by Test strip NEG NORMAL: Negative [facility] Protein [Mass/volume] in Urine by Test strip NEG NORMAL: Negat jam [facility] Nitrite [Presence] in Urine by Test strip NEG NORMAL: Negative [facility] BLOOD NEG NORMAL: Negative [facility] Leukocyte esterase [Presence] in Urine by Test strip NEG PEDRO L: Negative [facility] Urobilinogen [Mass/volume] in Urine by Test strip NOR less christo n 1.0 mg/dL [facility] MICROSCOPIC Not Indicate [facility] ID Date Data Source [id number] 07/06/2020 07:48:00 AM EST [facility] Name Value Range Interpretation Code Description Data Erica rce(s) Supporting Document(s) HCG SERUM QUAL NEGATIVE NORMAL: NEGATIVE [facility] HCG SERUM QL REENTER NEGATIVE NORMAL: NEGATIVE [facility] { KIT LOT # [id number] ){ KIT EXP DATE 06.04.21 ){ PROCEDURAL CONTROL VALID ) ID Date Data Source [id number] 07/06/2020 07:38:00 AM EST [facility] Name Value Range Interpretation Code Description Data Erica rce(s) Supporting Document(s) COMPREHENSIVE METABOLIC PANEL [facility] COMPREHENSIVE METABOLIC PANEL Sodium [Moles/volume] in Serum or Plasma 138 mEq/L 134 - 153 [facility] Potassium [Moles/volume] in Serum or Plasma 3.6 mEq/L 3.6 - 5.0 [facility] Chloride [Moles/volume] in Serum or Plasma 101 mEq/L 98 - 107 [facility] Carbon dioxide, total [Moles/volume] in Serum or Plasma 29 MEQ/L 22 - 30 [facility] Glucose [Mass/volume] in Serum or Plasma 96 MG/DL 65 - 110 [facility] BUN 5 MG/DL 7 - 21 L [facility] Creatinine [Mass/volume] in Serum or Plasma 0.5 MG/DL 0.7 - 1.5 L [facility] BUN/CREAT 10 8 - 27 [facility] Protein [Mass/volume] in Serum or Plasma 7.6 G/DL 6.3 - 8.2 [facility] Albumin [Mass/volume] in Serum or Plasma 4.5 G/DL 3.9 - 5.0 [facility] Globulin [Mass/volume] in Serum by calculation 3.1 GM/DL 2.4 - 3.2 [facility] A/G RATIO 1.5 0.8 - 2.0 [facility] al Calcium [Mass/volume] in Serum or Plasma 9.5 MG/DL 8.4 - 10.2 [facility] Bilirubin.total [Mass/volume] in Serum or Plasma 1.2 MG/DL 0.2 - 1.3 [facility] Alkaline phosphatase [Enzymatic activity/volume] in Serum or Plasma 89 U/L 38 - 126 [facility] Aspartate aminotransferase [Enzymatic activity/volume] in Serum or Plasma 18 U/L 5 - 40 [facility] Alanine aminotransferase [Enzymatic activity/volume] in Seru m or Plasma 14 U/L 7 - 56 [facility] Anion gap 3 in Serum or Plasma 8.0 mmol/L 8.0 - 16.0 [facility] AGE 24 yrs [facility] al NON-AA GFR >60 mL/min [facility] ital AFR AMER GFR >60 mL/min [facility] Male GFR In terprentation 20-49 yrs >60 mL/min Normal 50-59 yrs >56 mL/min Normal 60-69 yrs >49 mL/min Normal 70-79yrs >42 mL/min Normal 80 and above >35 mL/min Normal Female GFR Interpretation 20-39 yrs >60 mL/min Normal 40-49 yrs >58 mL/min Normal 50-59 yrs >51 mL/min Normal 60-69 yrs >45 mL/min Normal 70-79 yrs >39 mL/min Normal 80 and above >32 mL/min Normal ID Date Data Source [id number] 07/06/2020 07:38:00 AM EST [facility] Name Value Range Interpretation Code Description Data Erica rce(s) Supporting Document(s) Ethanol [Moles/volume] in Blood <10.0 MG/DL [facility] ALCOHOL % 0.00 % 0.00 - 0.01 [facility] ital *FOR MEDICAL PURPOSES ONLY * ID Date Data Source [id number] 07/06/2020 07:38:00 AM [facility] Name Value Range Interpretation Code Description Data Erica rce(s) Supporting Document(s) SALICYLATE <0.3 mg/dL 2.0 - 20.0 L [facility] ID Date Data Source [id number] 07/06/2020 07:38:00 AM [facility] Name Value Range Interpretation Code Description Data Erica rce(s) Supporting Document(s) Acetaminophen [Presence] in Urine <5.0 UG/ML 0.0 - 30.0 [facility] ID Date Data Source [id number] 07/06/2020 07:30:00 AM [facility] Name Value Range Interpretation Code Description Data Erica rce(s) Supporting Document(s) CBC W/AUTOMATED DIFF [facility] COMPLETE BLOOD COUNT Leukocytes [#/volume] in Blood by Automated count 7.6 10^3/uL 4.2 - 1 1.0 [facility] Erythrocytes [#/volume] in Blood by Automated count 4.76 10^6/uL 4. 20 - 5.40 [facility] Hemoglobin [Mass/volume] in Blood 14.0 g/dL 12.0 - 16.0 [facility] Hematocrit [Volume Fraction] of Blood by Automated count 42.0 % 3 7.0 - 47.0 [facility] Erythrocyte mean corpuscular volume [Entitic volume] by Auto mated count 88.2 fL 81.0 - 101 [facility] Erythrocyte mean corpuscular hemoglobin [Entitic mass] by Automated count 29.4 pg 27.0 - 34.0 [facility] Erythrocyte mean corpuscular hemoglobin concentration [Mass/volume] by Automated count 33.3 g/dL 31.0 - 36.0 [facility] Erythrocyte distribution width [Ratio] by Automated count 12.2 % 11.5 - 14.5 [facility] Platelets [#/volume] in Blood by Automated count 310 10^3/uL 150 - 45 0 [facility] Platelet mean volume [Entitic volume] in Blood by Automated count 11.0 fL 7.4 - 10.4 H [facility] Neutrophils/100 leukocytes in Blood by Automated count 58.4 % 37. 0 - 80.0 [facility] Lymphocytes/100 leukocytes in Blood by Manual count 32.5 % 25.0 - 40.0 [facility] Monocytes/100 leukocytes in Blood by Automated count 6.0 % 3.0 - 8.0 [facility] Eosinophils/100 leukocytes in Blood by Automated count 1.6 % 0.0 - 7.0 [facility] Basophils/100 leukocytes in Blood by Automated count 1.1 % 0.0 - 2.5 [facility] %IG 0.4 % 0.0 - 0.0 H [facility] %NRBC 0.0 % 0.0 - 0.0 [facility] al Neutrophils [#/volume] in Blood by Automated count 4.42 10^3/uL 2.00 - 6.90 [facility] Lymphocytes [#/volume] in Blood by Automated count 2.45 10^3/uL 0.60 - 3.40 [facility] Monocytes [#/volume] in Blood by Automated count 0.45 10^3/uL 0.00 - 0.90 [facility] Eosinophils [#/volume] in Blood by Automated count 0.12 10^3/uL 0.00 - 0.70 [facility] Basophils [#/volume] in Blood by Automated count 0.08 10^3/uL 0.00 - 0.20 [facility] #IG 0.03 10^3/uL 0.00 - 0.10 [facility] #NRBC 0.00 10^3/uL 0.00 - 0.00 [facility] MANUAL DIFF NOT INDICATED [facility] RBC MORPH NOT INDICATED [facility] Procedure Social History Code Duration Value Status Description Data Source(s ) Smoking 02/15/2020 12:00:00 AM EDT Never smoker completed Never s moker [facility] ([facility]) Vital Signs ID Date Data Source UNK Name Value Range Interpretation Code Description Data Source(s) Body weight 84.540 kg 84.540 kg [facility] ([facility]) Body weight 186.38 [lb_av] 186.38 [lb_av] [facility] ([facility]) Respiratory rate 18 /min 18 /min [facility] ( [facility]) Heart rate 101 /min 101 /min [facility] ([facility]) Diastolic blood pressure 70 mm[Hg] 70 mm[Hg] [facility] ([facility]) Systolic blood pressure 104 mm[Hg] 104 mm[Hg] M [facility] ([facility]) Body mass index (BMI) [Ratio] 29.76 kg/m2 Overweight 29.76 kg/m2 [facility] ([facility]) Body weight 86.183 kg 86.183 kg [facility] ([facility] Body height 170.18 cm 170.18 cm [facility] ([facility]) Body height 170.18 cm 170.18 cm [facility] ([facility]) Body weight 86.184 kg 86.184 kg [facility] ([facility]) Body weight 190.00 [lb_av] 190.00 [lb_av] [facility] ([facility]) Body temperature 97.9 [degF] 97.9 [degF] [facility] ([facility]) Heart rate 109 /min 109 /min [facility] ([facility]) Diastolic blood pressure 72 mm[Hg] 72 mm[Hg] [facility] ([facility]) Systolic blood pressure 124 mm[Hg] 124 mm[Hg] [facility]) Patient Treatment Plan of Care Planned Activity Planned Date Details Description Data Source (s) Aubra EQ 0.1 mg-20 mcg tablet 01/17/2020 12:00:00 AM EDT [facility] ([facility]) Acetaminophen 300 MG / Codeine Phosphate 30 MG Oral Ta blet 01/17/2020 12:00:00 AM EDT [facility] Misoprostol 0.2 MG Oral Tablet 01/17/2020 12:00:00 AM EDT [facility] ([facility]) Misoprostol 0.2 MG Oral Tablet 01/17/2020 12:00:00 AM EDT [facility] ([facility]) Mifepristone 200 MG Oral Tablet [Mifeprex] 01/17/2020 12:00:00 AM E DT [facility] ([facility]) Ondansetron 4 MG Oral Tablet 01/17/2020 12:00:00 AM EDT [facility] ([facility]) Ibuprofen 800 MG Oral Tablet 01/17/2020 12:00:00 AM EDT [facility] ([facility]) Metronidazole 500 MG Oral Tablet 10/30/2019 12:00:00 AM EST [facility] ([facility]) Metronidazole 500 MG Oral Tablet 10/24/2019 12:00:00 AM EST [facility] ([facility]) Ortho Micronor 0.35 mg tablet 09/29/2019 12:00:00 AM EST [facility] ([facility])
--- OUTSIDE RECORDS SUMMARY | 2020-10-02 12:59 | CCD ---
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 these occur: Trouble swallowing [...] Pus drains from the tooth or gum [phone] [employer]. [address] [place] [address], [place] [address]. All rights reserved. This information is not intended as asubstitute for professional medical care. Always follow your healthcare professional's instructions. You have been given the following additional information: Dental Cavity 4 General Instructions [facility] Emergency Department [address] [place] [address] Phone #: ext- [phone] 09/01/2020 06:08 Patient: WINDY HARO Sex: F : 1995 Age: 24y(Electronically signed by Chaya Canada 09/01/2020 07:00) Name Value Range Interpretation Code Description Data Erica rce(s) Supporting Document(s) ID Date Data Source [id number] 09/01/2020 06:12:00 AM EST [facility] 1 Clinical Report - Nurses [facility] Emergency Department [address] [place] [address] Phone #: ext- [phone] 09/01/2020 06:08 Patient: [...] been able to see a dentist yet.).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 [...] The patient has not traveled outside the [address] [place] [address] - [facility] Emergency Department [address] [place] [address] Phone #: [phone]- [phone] 09/01/2020 06:08 Patient: WINDY HARO Sex: F [...] Iniguez R.N. 3 Clinical Report - Nurses [facility] Emergency Department [address] [place] [address] Phone #: ext- [phone] 09/01/2020 06:08 [id number] Sex[facility] F : 1995 Age: 24yDISPOSITION / DISCHARGE No learning barriers present. Discharge instructions provided and reviewed. Reviewed warnings. Reviewed medication(s) side effects, precautions, dosing and course information. Prescription(s) given to the patient and sent electronically to pharmacy. Medication(s) for home use given to the patient per protocol. Treatments reviewed. Reviewed referrals. Patient verbalized understanding. Written instructions provided in Bhutanese. The patient was discharged home. She left [...] rce(s) Supporting Document(s) ID Date Data Source [id number] 09/01/2020 06:12:00 AM EST [facility] 1 Clinical Report - Physicians/Mid Levels [facility] Emergency Department [address] [place] [address] Phone #: ext- [phone] 09/01/2020 06:08 Patient: [...] history. 2 Clinical Report - Physicians/Mid Levels [facility] Emergency Department [address] [place] [address] Phone #: ext- [phone] 09/01/2020 06:08 Patient: WINDY HARO Sex: F [...] of Care: 06:36 09/01/20. continue with Amoxicillin. Schnellville for pain. Disposition: Discharged. Condition: stable.CLINICAL IMPRESSION Dental caries (localized)INSTRUCTIONS Warnings: GENERAL WARNINGS: Return or contact your physician immediately if your condition worsens or changes unexpectedly, if not improving as expected, or if other problems arise. Prescription Medications: [place] 5 mg-325 mg tablet Take 1 tablet every eight hours as needed for pain -- Dispense 10 tablet. Refills: 0. Substitution permitted. [facility] [address] [place] [phone]. . amoxicillin 500 mg capsule Take 1 capsule twice a day -- Dispense 20 capsule. Refills: 0. Substitution permitted. [facility] #[address] - [address] [place] [phone]. FaxNumber: [phone]. 3 Clinical Report - Physicians/Mid Levels [facility] Emergency Department [address] [place] [address] Phone #: ext- [phone] 09/01/2020 06:08 Patient: WINDY HARO Sex: F : 1995 Age: 24y Understanding of the discharge instructions verbalized by patient. Follow-up with: Alexa Perry MD, [facility], , , , , , Follow up Wednesday if not well. Call for an appointment.(Electronically signed by Chaya Canada 09/01/2020 07:00) Name Value Range Interpretation Code Description Data Erica rce(s) Supporting Document(s) ID Date Data Source [id number] 07/08/2020 09:59:00 [place] [address] PHONE: [phone] FAX: [phone] Name .................. : ESTRELLITA Mercer Acct Number.................. : [id number] [facility]....[facility] ................... : [id number] Stay type ............. : E/R Discharge Date......... ... : 07/06/20 Admit Date ......... : 07/06/20 Admit Phys .................... : MAIKEL MCNEAL Date of ....... : 1995 Family Phys ................... : ORLANDO STINSON Phone .................. : [phone] Age ................................ : 24 Film# .................. .:[id number] Sex ................................. : F Unsigned transcriptions are preliminary reports and do not represent a medical or legal document CHEST 2 VIEWS [id number] COMPLETE:07/06/20 08:19 KJE 22762 Reason(s): Shortness of Breath CHEST X-RAY: PA AND LATERAL VIEWS HISTORY: Shortness of breath. COMPARISON: None. FINDINGS: Normal cardiomediastinal silhouette. Pulmonary vessels are normal. Clear lungs. No pleural effusion. No acute or focal osseous abnormality. IMPRESSION: No active disease is seen in the chest. Electronically Reviewed and Signed By Felipe Man MD , 07/08/20 09:59, APM Transcribe Initials: TJE , Transcribe Date: 07/06/20 09:15, Dictation Date: Copy for: ORLANDO PIPER via fax Copy for: EMERGENCY DEPT via modem Copy for: 710 MED REC DISCHARGED Page 1 of 1 Name Value Range Interpretation Code Description Data Erica rce(s) Supporting Document(s) ID Date Data Source [id number] 07/08/2020 09:39:00 [place] [address] RESPIRATORY CARE REPORT ==== ---------NAME------- NUMBER SEX AGE ADMIT DISC. XRAY# F/C KINGSLEY Mercer [id number] F 24 07/06/20 07/06/20 [id number] X6B E/R DATE OF : 1995 M/R# [id number] #: [id number] TR-07 LOCATION: EMERGENCY DEPT EKG 19947 COMP LETE:07/06/20 08:58 [facility] [address] PHYSICIAN: MAIKEL MCNEAL Name Value Range Interpretation Code Description Data Erica rce(s) Supporting Document(s) ID Date Data Source [id number] 07/06/2020 06:03:00 AM EST [facility] 1 OrderSheet [facility] Emergency Department [address] [place] [address] Phone #: ext- [phone] 07/06/2020 06:01 Patient: [...] (Clean STAT 06:26 07/06/2020 Ack'd: 06:27 07:44 Grant,Catch) Mariann Caro R.N. Physician; R.N.Urine Drug Screen STAT 06:26 07/06/2020 Ack'd: 06:27 07:44 Grant, Mariann Caro R.N. Physician; R.N.ETOH STAT 06:26 07/06/2020 Ack'd: 06:27 07:21 Garett Scruggs Laura Laura R.N. Physician; R.NStephenCBC w Diff STAT 06:26 07/06/2020 Ack'd: 06:27 07:21 Garett Scruggs Laura Laura R.N. Physician; R.N.CMP STAT 06:26 07/06/2020 Ack'd: 06:27 07:21 Garett Scruggs Laura Laura R.N. Physician; R.N.HCG Serum Qual STAT 06:31 07/06/2020 Ack'd: 06:47 07:21 Garett Scruggs Laura Laura R.N. Physician; R.NStephen 2 OrderSheet [facility] Emergency Department [address] [place] [address] Phone #: ext- [phone] 07/06/2020 06:01 Patient: [...] rce(s) Supporting Document(s) ID Date Data Source [id number] 07/06/2020 06:03:00 AM [facility] 1 Medication Reconciliation Report [facility] Emergency Department [address] [place] [address] Phone #: ext- [phone] 07/06/2020 06:01 Patient: WINDY HARO Sex: F [...] 28 tablet. Refills: 0. Substitution permitted.Pharmacy - [facility] - [address] [place] [phone]. . -- Physician Sudarshan Name Value Range Interpretation Code Description Data Erica rce(s) Supporting Document(s) ID Date Data Source [id number] 07/06/2020 06:03:00 AM [facility] 1 Medication Administration Record [facility] Emergency Department [address] [place] [address] Phone #: ext- [phone] 07/06/2020 06:01 Patient: WINDY HARO Sex: F : 1995 Age: 24yWeight: 79.3 kgHeight/Length: 68 inBMI: 26.6ALLERGIES: No Known Drug AllergyDate/Time Medication Administered Medication Ordered Name Value Range Interpretation Code Description Data Erica rce(s) Supporting Document(s) ID Date Data Source [id number] 07/06/2020 06:03:00 AM EST [facility] 1 General Instructions [facility] Emergency Department [address] [place] [address] Phone #: ext [phone] 07/06/2020 06:01 Patient: WINDY HARO Sex: F [...] 28 tablet. Refills: 0. Substitution permitted.Pharmacy - [facility] ; [place], [place] [phone]. . 2 General Instructions [facility] Emergency Department [address] [place] [address] Phone #: ext- [phone] 07/06/2020 06:01 Patient: [...] others. They can also 3 General Instructions [facility] Emergency Department [address] [place] [address] Phone #: ext- [phone] 07/06/2020 06:01 Patient: [...] with your healthcare provider, or as advised.Call [phone] if you: Have suicidal thoughts, a suicide plan, and the means to carry out the plan Have serious thoughts of hurting someone else Have trouble breathing 4 General Instructions [facility] Emergency Department [address] [place] [address] Phone #: ext- [phone] 07/06/2020 06:01 Patient: [...] your symptoms to the point of feeling jwz-dl-lpzaacj Feeling that you may try to harm [...] you to seek help for your symptoms [phone] [employer]. [address] [place] [address]. All rights reserved. This information is not intended as asubstitute for professional medical care. Always follow your healthcare professional's instructions. You have been given the following additional information: Panic Attack(Electronically signed by Ag Paulson, Physician 07/06/2020 08:33) 5 General Instructions [facility] Emergency Department [address] [place], [place] [address] Phone #: ext- [phone] 07/06/2020 06:01 Patient: WINDY HARO Sex: F : 1995 Age: 24y Name Value Range Interpretation Code Description Data Erica rce(s) Supporting Document(s) ID Date Data Source [id number] 07/06/2020 06:03:00 AM EST [facility] 1 Clinical Report - Nurses [facility] Emergency Department [address] [place] [address] Phone #: ext- [phone] 07/06/2020 06:01 Patient: [...] of anxiety anddenies being prescribed any medication.).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 --06:07 07/06/20 Mariann Scruggs R.N.06:03 07/06/20. BP: [...] to the 2 Clinical Report - Nurses [facility] Emergency Department [address] [place] [address] Phone #: ext- [phone] 07/06/2020 06:01 Patient: [...] on patient. To treatment room. --06:07/06/20 Mariann cSruggs R.N.PHYSICAL ASSESSMENTAmbulatory to room. Patient gowned.GENERAL / [...] level now: 3 Clinical Report - Nurses [facility] Emergency Department [address] [place] [address] Phone #: ext- [phone] 07/06/2020 06:01 [facility]: [id number] Sex: F : 1995 Age: 24y 0/10. [...] Patient walked to radiology with mask and zoology technical officer. --08:21 07/06/20 Elinor Jennings RN 08:17 07/06/20. Patient walked back from radiology with mask and zoology technical officer. --08:21 07/06/20 Elinor Jennings RN.DISPOSITION / DISCHARGE [...] Patient verbalized understanding. Written instructions provided in Bhutanese. The patient was discharged by the physician. [...] Meyers R.N. 4 Clinical Report - Nurses [facility] Emergency Department [address] [place] [address] Phone #: ext- [phone] 07/06/2020 06:01 Patient: WINDY HARO Sex: F : 1995 Age: 24yLocked/Released at 07/06/2020 08:28 by Qiana Meyers R.N. Name Value Range Interpretation Code Description Data Erica rce(s) Supporting Document(s) ID Date Data Source [id number] 07/06/2020 06:03:00 AM EST [facility] 1 Clinical Report - Physicians/Mid Levels [facility] Emergency Department [address] [place] [address] Phone #: ext- [phone] 07/06/2020 06:01 Patient: [...] normal. 2 Clinical Report - Physicians/Mid Levels [facility] Emergency Department [address] [place] [address] Phone #: ext- [phone] 07/06/2020 06:01 Patient: [...] viewed by me. Normal sinus rhythm. Normal [place] interval. Normal QRScomplexes. Normal STs and T [...] NEGAT 3 Clinical Report - Physicians/Mid Levels [facility] Emergency Department [address] [place] [address] Phone #: ext- [phone] 07/06/2020 06:01 Patient: WINDY HARO Sex: F : 1995 Age: 24y HCG SERUM QL REENTER NEGATIVE (NORMAL: NEGAT { KIT LOT # [id number] ){ KIT EXP DATE06.04.21 ){ PROCEDURAL CONTROL VALID)Acetaminophen Level: (JULIANO: 07/06/2020 07:07) ( MsgRcvd 07/06/2020 07:38) Final results Test Result Flag Units (Reference) ACETAMINOPHEN <5.0 UG/ML (0.0 - 30.0)Salicylate Level: (JULIANO: 07/06/2020 07:07) ( MsgRcvd 07/06/2020 07:38) Final results Test Result Flag Units (Reference) SALICYLATE <0.3 L mg/dL (2.0 - 20.0)ETOH: (JULIANO: 07/06/2020 07:07) ( SdgRcvd 07/06/2020 07:38) Final results Test Result Flag Units (Reference) ALCOHOL <10.0 MG/DL ALCOHOL % 0.00 % (0.00 - 0.01) *FOR MEDICAL PURPOSES ONLY*CBC w Diff: (JULIANO: 07/06/2020 07:07) ( [facility] 07/06/2020 07:30) Final results Test Result Flag [...] PANEL 4 Clinical Report - Physicians/Mid Levels [facility] Emergency Department [address] [place] [address] Phone #: ext- [phone] 07/06/2020 06:01 Patient: [...] operate 5 Clinical Report - Physicians/Mid Levels [facility] Emergency Department [address] [place] [address] Phone #: [phone] 07/06/2020 06:01 Patient: WINDY HARO Sex: F [...] tablet. Refills: 0. Substitution permitted. Pharmacy - [facility] [address] [place], [place] [phone]. . Follow-up: Follow up with your healthcare provider in three days if not better. Call for an appointment. Reason for referral: evaluation. Summary of care provided to patient via paper. Understanding of the discharge instructions verbalized by patient.(Electronically signed by Ag Paulson, Physician 07/06/2020 08:33) Name Value Range Interpretation Code Description Data [facility] rce(s) Supporting Document(s) ID Date Data Source [id number] 07/06/2020 08:24:00 AM [facility] Name Value Range Interpretation Code Description Data [facility](s) Supporting Document(s) DRUG SCREEN URINE [facility] URINE DRUG SCREEN Amphetamine [Presence] in Urine by Screen method NEGATIVE NORMAL: N EGATIVE [facility] BARBITURATES NEGATIVE NORMAL: NEGATIVE [facility] BENZO NEGATIVE NORMAL: NEGATIVE [facility] COCAINE NEGATIVE NORMAL: NEGATIVE [facility] Tetrahydrocannabinol [Presence] in Urine NEGATIVE NORMAL: NEGATIVE [facility] OPIATES NEGATIVE NORMAL: NEGATIVE [facility] Phencyclidine [Presence] in Urine by Screen method NEGATIVE NOR MAL: NEGATIVE [facility] \\BLDo\\URINE DRUG SCR EEN INTERPRETATION\\BLDx\\ THE CUTOFFF LEVELS FOR DETECTION ARE FOLLOWS: AMPHETAMINES 1000 ng/ml BARBITUARATES 200 ng/ml BENZODIAZEPINES 100 ng/ml THC 50 ng/ml PHENCYCLIDINE 25 ng/ml OPIATES 300 ng/ml COCAINE 300 ng/ml ALL POSITIVES ARE CONSIDERED PRESUMPTIVE POSITIVE CONFIRMATION WILL BE PERFORMED AT PHYSICIAN REQUEST. ID Date Data Source [id number] 07/06/2020 08:15:00 AM [facility] Name Value Range Interpretation Code Description Data [facility](s) Supporting Document(s) [facility] S[facility] R [facility] COLOR yellow NORMAL: Yellow [facility] CLARITY hazy NORMAL: Clear [facility] Specific gravity of Urine by Test strip 1.015 1.001 - 1.030 [facility] pH 6 5 - 9 [facility] Glucose [Mass/volume] in Urine by Test strip NORM NORMAL: Negat jam [facility] Bilirubin.total [Presence] in Urine by Test strip NEG NORMAL: Negative [facility] Ketones [Presence] in Urine by Test strip NEG NORMAL: Negative [facility] Protein [Mass/volume] in Urine by Test strip NEG NORMAL: Negat jam [facility] Nitrite [Presence] in Urine by Test strip NEG NORMAL: Negative [facility] BLOOD NEG NORMAL: Negative [facility] Leukocyte esterase [Presence] in Urine by Test strip NEG PEDRO L: Negative [facility] Urobilinogen [Mass/volume] in Urine by Test strip NOR less christo n 1.0 mg/dL [facility] MICROSCOPIC Not Indicate [facility] ID Date Data Source [id number] 07/06/2020 07:48:00 AM EST [facility] Name Value Range Interpretation Code Description Data Erica rce(s) Supporting Document(s) HCG SERUM QUAL NEGATIVE NORMAL: NEGATIVE [facility] HCG SERUM QL REENTER NEGATIVE NORMAL: NEGATIVE [facility] { KIT LOT # [id number] ){ KIT EXP DATE 06.04.21 ){ PROCEDURAL CONTROL VALID ) ID Date Data Source [id number] 07/06/2020 07:38:00 AM EST [facility] Name Value Range Interpretation Code Description Data Erica rce(s) Supporting Document(s) COMPREHENSIVE METABOLIC PANEL [facility] COMPREHENSIVE METABOLIC PANEL Sodium [Moles/volume] in Serum or Plasma 138 mEq/L 134 - 153 [facility] Potassium [Moles/volume] in Serum or Plasma 3.6 mEq/L 3.6 - 5.0 [facility] Chloride [Moles/volume] in Serum or Plasma 101 mEq/L 98 - 107 [facility] Carbon dioxide, total [Moles/volume] in Serum or Plasma 29 MEQ/L 22 - 30 [facility] Glucose [Mass/volume] in Serum or Plasma 96 MG/DL 65 - 110 [facility] BUN 5 MG/DL 7 - 21 [facility] Creatinine [Mass/volume] in Serum or Plasma 0.5 MG/DL 0.7 - 1.5 L [facility] BUN/CREAT 10 8 - 27 [facility] Protein [Mass/volume] in Serum or Plasma 7.6 G/DL 6.3 - 8.2 [facility] Albumin [Mass/volume] in Serum or Plasma 4.5 G/DL 3.9 - 5.0 [facility] Globulin [Mass/volume] in Serum by calculation 3.1 GM/DL 2.4 - 3.2 [facility] A/G RATIO 1.5 0.8 - 2.0 [facility] Calcium [Mass/volume] in Serum or Plasma 9.5 MG/DL 8.4 - 10.2 [facility] Bilirubin.total [Mass/volume] in Serum or Plasma 1.2 MG/DL 0.2 - 1.3 [facility] Alkaline phosphatase [Enzymatic activity/volume] in Serum or Plasma 89 U/L 38 - 126 [facility] Aspartate aminotransferase [Enzymatic activity/volume] in Serum or Plasma 18 U/L 5 - 40 [facility] Alanine aminotransferase [Enzymatic activity/volume] in Seru m or Plasma 14 U/L 7 - 56 [facility] Anion gap 3 in Serum or Plasma 8.0 mmol/L 8.0 - 16.0 [facility] AGE 24 yrs [facility] al NON-AA GFR >60 mL/min [facility] ital AFR AMER GFR >60 mL/min [facility] Male GFR In terprentation 20-49 [...] >32 mL/min Normal ID Date Data Source [id number] 07/06/2020 07:38:00 AM EST [facility] Name Value Range Interpretation Code Description Data Erica rce(s) Supporting Document(s) Ethanol [Moles/volume] in Blood <10.0 MG/DL [facility] ALCOHOL % 0.00 % 0.00 - 0.01 [facility] ital *FOR MEDICAL PURPOSES ONLY * ID Date Data Source [id number] 07/06/2020 07:38:00 AM [facility] Name Value Range Interpretation Code Description Data Erica rce(s) Supporting Document(s) SALICYLATE <0.3 mg/dL 2.0 - 20.0 L [facility] ID Date Data Source [id number] 07/06/2020 07:38:00 AM [facility] Name Value Range Interpretation Code Description Data Erica rce(s) Supporting Document(s) Acetaminophen [Presence] in Urine <5.0 UG/ML 0.0 - 30.0 [facility] ID Date Data Source [id number] 07/06/2020 07:30:00 AM [facility] Name Value Range Interpretation Code Description Data Erica rce(s) Supporting Document(s) CBC W/AUTOMATED DIFF [facility] COMPLETE BLOOD COUNT Leukocytes [#/volume] in Blood by Automated count 7.6 10^3/uL 4.2 - 1 1.0 [facility] Erythrocytes [#/volume] in Blood by Automated count 4.76 10^6/uL 4. 20 - 5.40 [facility] Hemoglobin [Mass/volume] in Blood 14.0 g/dL 12.0 - 16.0 [facility] Hematocrit [Volume Fraction] of Blood by Automated count 42.0 % 3 7.0 - 47.0 [facility] Erythrocyte mean corpuscular volume [Entitic volume] by Auto mated count 88.2 fL 81.0 - 101 [facility] Erythrocyte mean corpuscular hemoglobin [Entitic mass] by Automated count 29.4 pg 27.0 - 34.0 [facility] Erythrocyte mean corpuscular hemoglobin concentration [Mass/volume] by Automated count 33.3 g/dL 31.0 - 36.0 [facility] Erythrocyte distribution width [Ratio] by Automated count 12.2 % 11.5 - 14.5 [facility] Platelets [#/volume] in Blood by Automated count 310 10^3/uL 150 - 45 0 [facility] Platelet mean volume [Entitic volume] in Blood by Automated count 11.0 fL 7.4 - 10.4 H [facility] Neutrophils/100 leukocytes in Blood by Automated count 58.4 % 37. 0 - 80.0 [facility] Lymphocytes/100 leukocytes in Blood by Manual count 32.5 % 25.0 - 40.0 [facility] Monocytes/100 leukocytes in Blood by Automated count 6.0 % 3.0 - 8.0 [facility] Eosinophils/100 leukocytes in Blood by Automated count 1.6 % 0.0 - 7.0 [facility] Basophils/100 leukocytes in Blood by Automated count 1.1 % 0.0 - 2.5 [facility] %IG 0.4 % 0.0 - 0.0 [facility] al %NRBC 0.0 % 0.0 - 0.0 [facility] al Neutrophils [#/volume] in Blood by Automated count 4.42 10^3/uL 2.00 - 6.90 [facility] Lymphocytes [#/volume] in Blood by Automated count 2.45 10^3/uL 0.60 - 3.40 [facility] Monocytes [#/volume] in Blood by Automated count 0.45 10^3/uL 0.00 - 0.90 [facility] Eosinophils [#/volume] in Blood by Automated count 0.12 10^3/uL 0.00 - 0.70 [facility] Basophils [#/volume] in Blood by Automated count 0.08 10^3/uL 0.00 - 0.20 [facility] #IG 0.03 10^3/uL 0.00 - 0.10 [facility] ospital #NRBC 0.00 10^3/uL 0.00 - 0.00 [facility] MANUAL DIFF NOT INDICATED [facility] RBC MORPH NOT INDICATED [facility] Procedure Social History Code Duration Value Status Description Data Source(s ) Smoking 02/15/2020 12:00:00 AM EDT Never smoker completed Never s moker [facility] ([facility]) Vital Signs ID Date Data Source UNK Name Value Range Interpretation Code Description Data Source(s) Body weight 84.540 kg 84.540 kg [facility] ([facility]) Body weight 186.38 [lb_av] 186.38 [lb_av] [facility] T ([facility]) Respiratory rate 18 /min 18 /min [facility] ( [facility]) Heart rate 101 /min 101 /[facility] Diastolic blood pressure 70 mm[Hg] 70 mm[Hg] [facility] Systolic blood pressure 104 mm[Hg] 104 mm[Hg] M EDENT ([facility]) Body mass index (BMI) [Ratio] 29.76 kg/m2 Overweight 29.76 kg/m2 [facility] ([facility]) Body weight 86.183 kg 86.183 kg [facility] ([facility]) Body height 170.18 cm 170.18 cm [facility] ([facility]) Body height 170.18 cm 170.18 cm [facility] ([facility]) Body weight 86.184 kg 86.184 kg [facility] ([facility]) Body weight 190.00 [lb_av] 190.00 [lb_av] [facility] T ([facility]) Body temperature 97.9 [degF] 97.9 [degF] [facility] ([facility]) Heart rate 109 /min 109 /min [facility] ([facility]) Diastolic blood pressure 72 mm[Hg] 72 mm[Hg] [facility] ([facility]) Systolic blood pressure 124 mm[Hg] 124 mm[facility]Hg] [facility] Patient Treatment Plan of Care Planned Activity Planned Date Details Description Data Source (s) Aubra EQ 0.1 mg-20 mcg tablet 01/17/2020 12:00:00 AM EDT [facility] ([facility]) Acetaminophen 300 MG / Codeine Phosphate 30 MG Oral Ta blet 01/17/2020 12:00:00 AM EDT [facility] Misoprostol 0.2 MG Oral Tablet 01/17/2020 12:00:00 AM EDT [facility] ([facility]) Misoprostol 0.2 MG Oral Tablet 01/17/2020 12:00:00 AM EDT [facility] ([facility]) Mifepristone 200 MG Oral Tablet [Mifeprex] 01/17/2020 12:00:00 AM E DT [facility] ([facility]) Ondansetron 4 MG Oral Tablet 01/17/2020 12:00:00 AM EDT [facility] ([facility]) Ibuprofen 800 MG Oral Tablet 01/17/2020 12:00:00 AM EDT [facility] ([facility]) Metronidazole 500 MG Oral Tablet 10/30/2019 12:00:00 AM EST [facility] ([facility]) Metronidazole 500 MG Oral Tablet 10/24/2019 12:00:00 AM EST [facility] ([facility]) Ortho Micronor 0.35 mg tablet 09/29/2019 12:00:00 AM EST [facility] ([facility])
--- NOTE | 2020-10-02 14:18 | REP ---
INDICATION: chest pain/anxiety. COMPARISON: Comparison chest x-ray 11 April 2018. TECHNIQUE: Portable upright AP chest radiograph. FINDINGS: The lungs are well inflated and free of infiltrate. Pleural angles are sharp. Heart size is normal. Pulmonary vasculature is not increased. IMPRESSION: Negative portable chest.. <Electronically signed by Jono Willis > 10/02/20 [id number]
[2020-10-02 14:50] VITALS: BP 116/73
--- NOTE | 2020-10-03 07:37 | ECGEPIP ---
[facility] - ED Test Date: 2020-10-02 Pat Name: WINDY HARO Department: Room: - Gender: Female Patient Svcs Mgr: tb : 1995 Requested By: IDALIA Mohan Order Number: [id number] Reading MD: Kristina Pederson Measurements Intervals [place] Rate: 60 P: 32 MT: 163 QRS: -1 QRSD: 86 T: 38 QT: 386 QTc: 388 Interpretive Statements SINUS RHYTHM WITH OCCASIONAL SUPRAVENTRICULAR PREMATURE COMPLEXES Electronically Signed on 10-03-2020 7:37:48 EST by Kristina Pederson
== END 2020-10-02 15:00 | disposition home or self-care (01) ==
LOC: M ED 11:14
DX: F41.9 Anxiety disorder, unspecified (principal)

== ENCOUNTER 2020-10-04 11:15 | Emergency (ER) | payer OTHER ==
[~2020-10-04] VITALS: Ht 170.2 cm; Wt 81.6 kg
[~2020-10-04 11:15] MED LIST: LORA1TAB4 PO
[2020-10-04] MEDS ORDERED: XANA0.25 PO (11:21)
[2020-10-04] MEDS ORDERED: PEPC10TA6 PO (11:22)
--- OUTSIDE RECORDS SUMMARY | 2020-10-04 11:22 | CCD ---
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 [address] Phone #: ext- [phone] 09/01/2020 06:08 Patient: WINDY HARO Sex: F : 1995 Age: 24yWeight: 90.7 kgHeight/Length: 67 inBMI: 31.3ALLERGIES: No Known Drug AllergyDate/Time Medication Administered Medication Ordered Name Value Range Interpretation Code Description Data Erica rce(s) Supporting Document(s) ID Date Data Source [id number] 09/01/2020 06:12:00 AM [facility] 1 General Instructions [facility] Emergency Department [address] [place] [address] Phone #: ext- [phone] 09/01/2020 06:08 Patient: WINDY HARO Sex: F : 1995 Age: 24yDental caries (localized)INSTRUCTIONSWarnings: GENERAL WARNINGS: Return or contact your physician immediately if your conditionworsens or changes unexpectedly, if not improving as expected, or if other problems arise.Prescription Medications:Kiowa 5 mg-325 mg tablet Take 1 tablet every eight hours as needed for pain -- Dispense 10 tablet.Refills: 0. Substitution permitted.[facility] [address] - [address] [place], [place] [phone]. FaxNumber: .amoxicillin 500 mg capsule Take 1 capsule twice a day -- Dispense 20 capsule. Refills: 0. Substitutionpermitted.[facility] [address] [place], [place] [phone]. .Understanding of the discharge instructions verbalized by patient.Follow-up with: Alexa Perry MD, [facility], , , , , , Follow up Wednesday if not well. Call for an appointment. ADDITIONAL INFORMATIONDental Cavity 2 General Instructions [facility] Emergency Department [address] [place] [address] Phone #: ext- [phone] 09/01/2020 06:08 Patient: WINDY HARO Sex: F [...] cloves at pharmacies. Some pharmacies carry an twir-qtx-dwopqvr toothache kit. This contains a paste that you can put on the exposed tooth to make it less sensitive. 3 General Instructions [facility] Emergency Department [address] [place] [address] Phone #: ext- [phone] 09/01/2020 06:08 Patient: WINDY HARO Sex: F : 1995 Age: 24y Put a cold pack on your jaw over the sore area to help reduce pain. You may use guql-vpw-kavnjes medicine to ease pain, unless another medicine [...] this problem to prevent further tooth damage.Call [phone] if any of these occur: Trouble swallowing [...] Pus drains from the tooth or gum [employer]. [address] [place] [address], [place] [address]. All rights reserved. This information is not intended as asubstitute for professional medical care. Always follow your healthcare professional's instructions. You have been given the following additional information: Dental Cavity 4 General Instructions [facility] Emergency Department [address] [place] [address] Phone #: ext- [phone] 09/01/2020 06:08 Patient: WINDY HARO Sex: F : 1995 Age: 24y(Electronically signed by Chaya Canada 09/01/2020 07:00) Name Value Range Interpretation Code Description Data Erica rce(s) Supporting Document(s) ID Date Data Source [id number] 09/01/2020 06:12:00 AM EST [facility] 1 Clinical Report - Nurses [facility] Emergency Department [address] [place] [address] Phone #: ext- [phone] 09/01/2020 06:08 Patient: [...] been able to see a dentist yet.).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 [...] The patient has not traveled outside the Clinical [facility] - Nurses [facility] Emergency Department [address] [place] [address] Phone #: [phone]- [phone] 09/01/2020 06:08 [id number] Sex: [facility] : 1995 Age: 24y [place] [...] Iniguez R.N. 3 Clinical Report - Nurses [facility] Emergency Department [address] [place] [address] Phone #: ext- [phone] 09/01/2020 06:08 Patient: WINDY HARO Sex: F [...] Patient verbalized understanding. Written instructions provided in Setswana. The patient was discharged home. She left [...] rce(s) Supporting Document(s) ID Date Data Source [id number] 09/01/2020 06:12:00 AM [facility] 1 Clinical Report - Physicians/Mid Levels [facility] Emergency Department [address] [place] [address] Phone #: ext- [phone] 09/01/2020 06:08 [id number] Sex: F : 1995 Age: 24y Time [...] history. 2 Clinical Report - Physicians/Mid Levels [facility] Emergency Department [address] [place] [address] Phone #: ext- [phone] 09/01/2020 06:08 [id number] Sex: F : 1995 Age: 24yADDITIONAL NOTESThe [...] of Care: 06:36 09/01/20. continue with Amoxicillin. Kiowa for pain. Disposition: Discharged. Condition: stable.CLINICAL IMPRESSION Dental caries (localized)INSTRUCTIONS Warnings: GENERAL WARNINGS: Return or contact your physician immediately if your condition worsens or changes unexpectedly, if not improving as expected, or if other problems arise. Prescription Medications: Kiowa 5 mg-325 mg tablet Take 1 tablet every eight hours as needed for pain -- Dispense 10 tablet. Refills: 0. Substitution permitted. [facility] [address] [phone]. . amoxicillin 500 mg capsule Take 1 capsule twice a day -- Dispense 20 capsule. Refills: 0. Substitution permitted. [facility] #[address] - [address] [place] [phone]. FaxNumber: [phone]. 3 Clinical Report - Physicians/Mid Levels [facility] Emergency Department [address] [place], [place] [address] Phone #: ext- [phone] 09/01/2020 06:08 Patient: WINDY HARO Sex: F : 1995 Age: 24y Understanding of the discharge instructions verbalized by patient. Follow-up with: Alexa Perry MD, [facility], , , , , , Follow up Wednesday if not well. Call for an appointment.(Electronically signed by Chaya Canada 09/01/2020 07:00) Name Value Range Interpretation Code Description Data Erica rce(s) Supporting Document(s) ID Date Data Source [id number] 07/08/2020 09:59:00 [place] [address] PHONE: [phone] FAX: [phone] Name .................. : ESTRELLITA Mercer Acct Number.................. : [id number] ROOM. ................. : TR-07 MR Number ................... : [id number] Stay type ............. : E/R Discharge Date......... ... : 07/06/20 Admit Date ......... : 07/06/20 Admit Phys .................... : MAIKEL MCNEAL Date of ....... : 1995 Family Phys ................... : ORLANDO STINSON Phone .................. : [phone] Age ................................ : 24 Film# .................. .:[id number] Sex ................................. : F Unsigned transcriptions are preliminary reports and do not represent a medical or legal document CHEST 2 VIEWS [id number] COMPLETE:07/06/20 08:19 KJE [id number] Reason(s): Shortness of Breath CHEST X-RAY: PA AND LATERAL VIEWS HISTORY: Shortness of breath. COMPARISON: None. FINDINGS: Normal cardiomediastinal silhouette. Pulmonary vessels are normal. Clear lungs. No pleural effusion. No acute or focal osseous abnormality. IMPRESSION: No active disease is seen in the chest. Electronically Reviewed and Signed By Felipe Man MD , 07/08/20 09:59, APM Transcribe Initials: DZ , Transcribe Date: 07/06/20 09:15, Dictation Date: Copy for: ORLANDO PIPER via fax Copy for: EMERGENCY DEPT via modem Copy for: 710 MED REC DISCHARGED Page 1 of 1 Name Value Range Interpretation Code Description Data Erica rce(s) Supporting Document(s) ID Date Data Source [id number] 07/08/2020 09:39:00 AM [facility] [address] [place] [address] RESPIRATORY CARE REPORT ==== ---------NAME------- NUMBER SEX AGE ADMIT DISC. XRAY# F/C KINGSLEY Mercer [id number] F 24 07/06/20 07/06/20 [id number] E/R DATE OF : 1995 M/R# [id number] #: [id number] RM TR-07 LOCATION: EMERGENCY DEPT [facility] [id number] COMP LETE:07/06/20 08:58 CJM [id number] PHYSICIAN: MAIKEL MCNEAL Name Value Range Interpretation Code Description Data Erica rce(s) Supporting Document(s) ID Date Data Source [id number] 07/06/2020 06:03:00 AM EST [facility] 1 OrderSheet [facility] Emergency Department [address] [place] [address] Phone #: ext- [phone] 07/06/2020 06:01 Patient: WINDY HARO Sex: F : 1995 Age: 24yWEIGHT:79.3 kg (S) HEIGHT:68 inches (S) BMI:26.6ALLERGIES: No Known Drug AllergyCHIEF COMPLAINT: anxiousDIAGNOSIS: Anxiety, AnxietyLAB ORDERSOrder Description Priority Entered Acknowledged InitialedAcetaminophen STAT 06:26 07/06/2020 Ack'd: 06:27 07:21 Kael,Mariann Gorman R.N. Physician; R.N.Salicylate Level STAT 06:26 07/06/2020 Ack'd: 06:27 07:21 Garett Scruggs Laura Laura R.N. Physicia n; R.N.Urinalysis (Clean STAT 06:26 07/06/2020 Ack'd: 06:27 07:44 Luigi,Catch) Mariann Caro R.N. Physician; R.N.Urine Drug Screen STAT 06:26 07/06/2020 Ack'd: 06:27 07:44 Garett Meyers Laura Jennifer R.N. Physician; R.N.ETOH STAT 06:26 07/06/2020 Ack'd: 06:27 07:21 Garett Scruggs Laura Laura R.N. Physician; R.N.CBC w Diff STAT 06:26 07/06/2020 Ack'd: 06:27 07:21 Garett Scruggs, Mariann Waite R.N. Physician; R.N.CMP STAT 06:26 07/06/2020 Ack'd: 06:27 07:21 Garett Scruggs Laura Laura R.N. Physician; R.N.HCG Serum Qual STAT 06:31 07/06/2020 Ack'd: 06:47 07:21 Garett Scruggs Laura Laura R.N. Physician; R.NStephen 2 OrderSheet [facility] Emergency Department [address] [place] [address] Phone #: ext- [phone] 07/06/2020 06:01 Patient: [...] rce(s) Supporting Document(s) ID Date Data Source [id number] 07/06/2020 06:03:00 AM EST [facility] 1 Medication Reconciliation Report [facility] Emergency Department [address] [place] [address] Phone #: [facility]- [phone] 07/06/2020 06:01 Patient: WINDY HARO Sex: F [...] 28 tablet. Refills: 0. Substitution permitted.Pharmacy - [facility] #00 - [address] [place], [place] [phone]. . -- Ag Lorene, Physician Name Value Range Interpretation Code Description Data [facility] rce(s) Supporting Document(s) ID Date Data Source [id number] 07/06/2020 06:03:00 AM [facility] 1 Medication Administration Record [facility] Emergency Department [address] [place] [address] Phone #: ext [phone] 07/06/2020 06:01 Patient: WINDY HARO Sex: F : 1995 Age: 24yWeight: 79.3 kgHeight/Length: 68 inBMI: 26.6ALLERGIES: No Known Drug AllergyDate/Time Medication Administered Medication Ordered Name Value Range Interpretation Code Description Data [facility](s) Supporting Document(s) ID Date Data Source [id number] 07/06/2020 06:03:00 AM [facility] 1 General Instructions [facility] Emergency Department [address] [place] [address] Phone #: ext [phone] 07/06/2020 06:01 Patient: WINDY HARO Sex: F [...] 28 tablet. Refills: 0. Substitution permitted.Pharmacy - [facility] #07 - [address] [facility] ; [place], [place] [phone]. . 2 General Instructions [facility] Emergency Department [address] [place] [address] Phone #: ext- [phone] 07/06/2020 06:01 Patient: WINDY HARO Sex: F [...] others. They can also 3 General Instructions [facility] Emergency Department [address] [place] [address] Phone #: ext- [phone] 07/06/2020 06:01 Patient: [...] with your healthcare provider, or as advised.Call [phone] if you: Have suicidal thoughts, a suicide plan, and the means to carry out the plan Have serious thoughts of hurting someone else Have trouble breathing 4 General Instructions [facility] Emergency Department [address] [place] [address] Phone #: ext- [phone] 07/06/2020 06:01 Patient: [...] your symptoms to the point of feeling did-uk-ajykclw Feeling that you may try to harm [...] you to seek help for your symptoms [phone] [employer]. [address] [place] [address], [place] [address]. All rights reserved. This information is not intended as asubstitute for professional medical care. Always follow your healthcare professional's instructions. You have been given the following additional information: Panic Attack(Electronically signed by Ag Paulson, Physician 07/06/2020 08:33) 5 General Instructions [facility] Emergency Department [address] [place] [address] Phone #: ext- [phone] 07/06/2020 06:01 Patient: WINDY HARO Sex: F : 1995 Age: 24y Name Value Range Interpretation Code Description Data Erica rce(s) Supporting Document(s) ID Date Data Source [id number] 07/06/2020 06:03:00 AM EST [facility] 1 Clinical Report - Nurses [facility] Emergency Department [address] [place] [address] Phone #: ext- [phone] 07/06/2020 06:01 Patient: [...] of anxiety anddenies being prescribed any medication.).Treatment 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 --06:07 07/06/20 Mariann Scruggs R.N.06:03 07/06/20. BP: [...] Reaction. --06:05 07/06/20 Mariann Scruggs R.N.ADDITIONAL SURGERIES:Appendectomy. --06:07/06/20 Mariann Scruggs R.N.HistoryPAST MEDICAL HX: Immunizations: up-to-date. [...] to the 2 Clinical Report - Nurses [facility] Emergency Department [address] [place] [address] Phone #: ext- [phone] 07/06/2020 06:01 Patient: [...] in lowest position. Brakes of bed on. --:03/18 Mariann Scruggs R.N. EKG time: (06:12 07/06/2020). EKG was performed by a nurse and shown to the ED physician. --06:16 07/06/20 Mariann Scruggs R.N. The patient is calm and resting quietly. Care transferred and report given. --07:07/06/20 Mariann Scruggs R.N. 07:20 07/06/20. BP: 96/67. MAP: 76. HR: 65. RR: 16. O2 saturation: 100% on room air. Pain level now: 3 Clinical Report - Nurses [facility] Emergency Department [address] [place] [address] Phone #: ext- [phone] 07/06/2020 06:01 Patient: WINDY HARO Sex: F : 1995 Age: 24y 0/10. --07:20 07/06/20 Mariann Scruggs R.N. The patient reports no complaints and she is calm and resting quietly. ( Pt was using phone upon entering room, [facility]; Pt states she feels much less anxious than when first arriving, anxiety currently on scale 4/10.). RESPIRATORY: No respiratory distress. CVS: Denies chest pain. --07:44 07/06/20 Qiana Meyers R.N. 07:43 07/06/20. BP: 99/71. MAP: 80. HR: 77. RR: 18. O2 saturation: 100% on room air. Pain level now: 010. --07:44 07/06/20 Qiana Meyers R.N. Patient ID [...] Patient walked to radiology with mask and electronic service technician. --08:21 07/06/20 Elinor Jennings RN 08:17 07/06/20. Patient walked back from radiology with mask and electronic service technician. --08:21 07/06/20 Elinor Jennings RN.DISPOSITION / DISCHARGE Departure time: late entry - 08:25 07/06/2020. Condition at departure: improved and stable. ( MD aware of VS and is okay with d/c). No learning barriers present. Discharge instructions provided and reviewed with the patient. Reviewed warnings (please see paper copy). Reviewed medication(s) side effects, precautions, dosing and course information. Prescription(s) sent electronically to pharmacy (Hydroxyzine). Reviewed diet. Patient verbalized understanding. Written instructions provided in Setswana. The patient was discharged by the physician. She was discharged home and unaccompanied at time of discharge. She left ambulatory and via private vehicle. Patient driving. --08:07/06/20 Qiana Meyers R.N. 08:25 07/06/20. BP: 98/59. ED physician notified. MAP: 72. HR: 62. RR: 18. O2 saturation: 100% on room air. Temp: 97.8 F (oral). Pain level now: 0/10. --08:28 07/06/20 Qiana Meyers R.N. 4 Clinical Report - Nurses [facility] Emergency Department [address] [place] [address] Phone #: ext- [phone] 07/06/2020 06:01 Patient: WINDY HARO Sex: F : 1995 Age: 24yLocked/Released at 07/06/2020 08:28 by Qiana Meyers R.N. Name Value Range Interpretation Code Description Data Erica rce(s) Supporting Document(s) ID Date Data Source [id number] 07/06/2020 06:03:00 AM EST [facility] 1 Clinical Report - Physicians/Mid Levels [facility] Emergency Department [address] [place] [address] Phone #: ext- [phone] 07/06/2020 06:01 Patient: [...] Heart sounds normal. 2 Clinical Report - Physicians/[facility] Emergency Department [address] [place] [address] Phone #: ext- [phone] 07/06/2020 06:01 Patient: [...] viewed by me. Normal sinus rhythm. Normal DC interval. Normal QRScomplexes. Normal STs and T [...] NEGAT 3 Clinical Report - Physicians/Mid Levels [facility] Emergency Department [address] [place] [address] Phone #: ext- [phone] 07/06/2020 06:01 Patient: WINDY HARO Sex: F : 1995 Age: 24y HCG SERUM QL REENTER NEGATIVE (NORMAL: NEGAT { KIT LOT # [id number] ){ KIT EXP DATE06.04.21 ){ PROCEDURAL CONTROL VALID)Acetaminophen Level: (JULIANO: 07/06/2020 07:07) ( MsgRcvd 07/06/2020 07:38) Final results Test Result Flag Units (Reference) ACETAMINOPHEN <5.0 UG/ML (0.0 - 30.0)Salicylate Level: (JULIANO: 07/06/2020 07:07) ( MsgRcvd 07/06/2020 07:38) Final results Test Result Flag Units (Reference) SALICYLATE <0.3 L mg/dL (2.0 - 20.0)ETOH: (JULIANO: 07/06/2020 07:07) ( [facility] 07/06/2020 07:38) Final results Test Result Flag Units (Reference) ALCOHOL <10.0 MG/DL ALCOHOL % 0.00 % (0.00 - 0.01) *FOR MEDICAL PURPOSES ONLY*CBC w Diff: (JULIANO: 07/06/2020 07:07) ( [facility] 07/06/2020 07:30) Final results Test Result Flag [...] PANEL 4 Clinical Report - Physicians/Mid Levels [facility] Emergency Department [address] [place] [address] Phone #: ext- [phone] 07/06/2020 06:01 Patient: [...] operate 5 Clinical Report - Physicians/Mid Levels [facility] Emergency Department [address] [place] [address] Phone #: tin- [phone] 07/06/2020 06:01 Patient: WINDY HARO Sex: F [...] tablet. Refills: 0. Substitution permitted. Pharmacy - [facility] #07 - [address] [facility] ; [place], [place] [phone]. . Follow-up: Follow up with your healthcare provider in three days if not better. Call for an appointment. Reason for referral: evaluation. Summary of care provided to patient via paper. Understanding of the discharge instructions verbalized by patient.(Electronically signed by Ag Paulson, Physician 07/06/2020 08:33) Name Value Range Interpretation Code Description Data Erica rce(s) Supporting Document(s) ID Date Data Source [id number] 07/06/2020 08:24:00 AM [facility] Name Value Range Interpretation Code Description Data Erica rce(s) Supporting Document(s) DRUG SCREEN URINE [facility] URINE DRUG SCREEN Amphetamine [Presence] in Urine by Screen method NEGATIVE NORMAL: N EGATIVE [facility] BARBITURATES NEGATIVE NORMAL: NEGATIVE [facility] BENZO NEGATIVE NORMAL: NEGATIVE [facility] COCAINE NEGATIVE NORMAL: NEGATIVE [facility] Tetrahydrocannabinol [Presence] in Urine NEGATIVE NORMAL: NEGATIVE [facility] OPIATES NEGATIVE NORMAL: NEGATIVE [facility] Phencyclidine [Presence] in Urine by Screen method NEGATIVE NOR MAL: NEGATIVE [facility] \\BLDo\\URINE DRUG SCR EEN INTERPRETATION\\BLDx\\ THE CUTOFFF LEVELS FOR DETECTION ARE FOLLOWS: AMPHETAMINES 1000 ng/ml BARBITUARATES 200 ng/ml BENZODIAZEPINES 100 ng/ml THC 50 ng/ml PHENCYCLIDINE 25 ng/ml OPIATES 300 ng/ml COCAINE 300 ng/ml ALL POSITIVES ARE CONSIDERED PRESUMPTIVE POSITIVE CONFIRMATION WILL BE PERFORMED AT PHYSICIAN REQUEST. ID Date Data Source [id number] 07/06/2020 08:15:00 AM [facility] Name Value Range Interpretation Code Description Data Erica rce(s) Supporting Document(s) URINALYSIS [facility] URINALYSIS SOURCE R [facility] COLOR yellow NORMAL: Yellow [facility] CLARITY hazy NORMAL: Clear [facility] Specific gravity of Urine by Test strip 1.015 1.001 - 1.030 [facility] pH 6 5 - [facility] Glucose [Mass/volume] in Urine by Test strip NORM NORMAL: Negat [facility] Bilirubin.total [Presence] in Urine by Test strip NEG NORMAL: Negative [facility] Ketones [Presence] in Urine by Test strip NEG NORMAL: Negative [facility] Protein [Mass/volume] in Urine by Test strip NEG NORMAL: Negat [facility] Nitrite [Presence] in Urine by Test strip NEG NORMAL: Negative [facility] BLOOD NEG NORMAL: Negative [facility] Leukocyte esterase [Presence] in Urine by Test strip NEG PEDRO L: Negative [facility] Urobilinogen [Mass/volume] in Urine by Test strip NOR less christo n 1.0 mg/dL [facility] MICROSCOPIC Not Indicate [facility] ID Date Data Source [id number] 07/06/2020 07:48:00 AM EST [facility] Name Value Range Interpretation Code Description Data Erica rce(s) Supporting Document(s) HCG SERUM QUAL NEGATIVE NORMAL: NEGATIVE [facility] HCG SERUM QL REENTER NEGATIVE NORMAL: NEGATIVE [facility] { KIT LOT # [id number] ){ KIT EXP DATE 06.04.21 ){ PROCEDURAL CONTROL VALID ) ID Date Data Source [id number] 07/06/2020 07:38:00 AM [facility] Name Value Range Interpretation Code Description Data Erica rce(s) Supporting Document(s) COMPREHENSIVE METABOLIC PANEL [facility] COMPREHENSIVE METABOLIC PANEL Sodium [Moles/volume] in Serum or Plasma 138 mEq/L 134 - 153 [facility] Potassium [Moles/volume] in Serum or Plasma 3.6 mEq/L 3.6 - 5.0 [facility] Chloride [Moles/volume] in Serum or Plasma 101 mEq/L 98 - 107 [facility] Carbon dioxide, total [Moles/volume] in Serum or Plasma 29 MEQ/L 22 - 30 [facility] Glucose [Mass/volume] in Serum or Plasma 96 MG/DL 65 - 110 [facility] BUN 5 MG/DL 7 - [address] [facility] [place] [facility] Creatinine [Mass/volume] in Serum or Plasma 0.5 MG/DL 0.7 - 1.5 L [facility] BUN/CREAT 10 8 - 27 [facility] al Protein [Mass/volume] in Serum or Plasma 7.6 G/DL 6.3 - 8.2 [facility] Albumin [Mass/volume] in Serum or Plasma 4.5 G/DL 3.9 - 5.0 [facility] Globulin [Mass/volume] in Serum by calculation 3.1 GM/DL 2.4 - 3.2 [facility] A/G RATIO 1.5 0.8 - 2.0 [facility] Calcium [Mass/volume] in Serum or Plasma 9.5 MG/DL 8.4 - 10.2 [facility] Bilirubin.total [Mass/volume] in Serum or Plasma 1.2 MG/DL 0.2 - 1.3 [facility] Alkaline phosphatase [Enzymatic activity/volume] in Serum or Plasma 89 U/L 38 - 126 [facility] Aspartate aminotransferase [Enzymatic activity/volume] in Serum or Plasma 18 U/L 5 - 40 [facility] Alanine aminotransferase [Enzymatic activity/volume] in Seru m or Plasma 14 U/L 7 - 56 [facility] Anion gap 3 in Serum or Plasma 8.0 mmol/L 8.0 - 16.0 [facility] AGE 24 yrs [facility] NON-AA GFR >60 mL/min [facility] [place] [facility] AFR AMER GFR >60 mL/min [facility] Male GFR In terprentation 20-49 [...] >32 mL/min Normal ID Date Data Source [id number] 07/06/2020 07:38:00 AM EST [facility] Name Value Range Interpretation Code Description Data Erica rce(s) Supporting Document(s) Ethanol [Moles/volume] in Blood <10.0 MG/DL [facility] ALCOHOL % 0.00 % 0.00 - 0.01 [facility] *FOR MEDICAL PURPOSES ONLY * ID Date Data Source [id number] 07/06/2020 07:38:00 AM [facility] Name Value Range Interpretation Code Description Data Erica rce(s) Supporting Document(s) SALICYLATE <0.3 mg/dL 2.0 - 20.0 L [facility] ID Date Data Source [id number] 07/06/2020 07:38:00 AM [facility] Name Value Range Interpretation Code Description Data Erica rce(s) Supporting Document(s) Acetaminophen [Presence] in Urine <5.0 UG/ML 0.0 - 30.0 [facility] ID Date Data Source [id number] 07/06/2020 07:30:00 AM [facility] Name Value Range Interpretation Code Description Data Eriac rce(s) Supporting Document(s) CBC W/AUTOMATED DIFF [facility] COMPLETE BLOOD COUNT Leukocytes [#/volume] in Blood by Automated count 7.6 10^3/uL 4.2 - 1 1.0 [facility] Erythrocytes [#/volume] in Blood by Automated count 4.76 10^6/uL 4. 20 - 5.40 [facility] Hemoglobin [Mass/volume] in Blood 14.0 g/dL 12.0 - 16.0 [facility] Hematocrit [Volume Fraction] of Blood by Automated count 42.0 % 3 7.0 - 47.0 [facility] Erythrocyte mean corpuscular volume [Entitic volume] by Auto mated count 88.2 fL 81.0 - 101 [facility] Erythrocyte mean corpuscular hemoglobin [Entitic mass] by Automated count 29.4 pg 27.0 - 34.0 [facility] Erythrocyte mean corpuscular hemoglobin concentration [Mass/volume] by Automated count 33.3 g/dL 31.0 - 36.0 [facility] Erythrocyte distribution width [Ratio] by Automated count 12.2 % 11.5 - 14.5 [facility] Platelets [#/volume] in Blood by Automated count 310 10^3/uL 150 - 45 0 [facility] Platelet mean volume [Entitic volume] in Blood by Automated count 11.0 fL 7.4 - 10.4 H [facility] Neutrophils/100 leukocytes in Blood by Automated count 58.4 % 37. 0 - 80.0 [facility] Lymphocytes/100 leukocytes in Blood by Manual count 32.5 % 25.0 - 40.0 [facility] Monocytes/100 leukocytes in Blood by Automated count 6.0 % 3.0 - 8.0 [facility] Eosinophils/100 leukocytes in Blood by Automated count 1.6 % 0.0 - 7.0 [facility] Basophils/100 leukocytes in Blood by Automated count 1.1 % 0.0 - 2.5 [facility] %IG 0.4 % 0.0 - 0.[address] [facility] [place] %NRBC 0.0 % 0.0 - 0.0 [facility] al Neutrophils [#/volume] in Blood by Automated count 4.42 10^3/uL 2.00 - 6.90 [facility] Lymphocytes [#/volume] in Blood by Automated count 2.45 10^3/uL 0.60 - 3.40 [facility] Monocytes [#/volume] in Blood by Automated count 0.45 10^3/uL 0.00 - 0.90 [facility] Eosinophils [#/volume] in Blood by Automated count 0.12 10^3/uL 0.00 - 0.70 [facility] Basophils [#/volume] in Blood by Automated count 0.08 10^3/uL 0.00 - 0.20 [facility] #IG 0.03 10^3/uL 0.00 - 0.10 [facility] ospital #NRBC 0.00 10^3/uL 0.00 - 0.00 [facility] MANUAL DIFF NOT INDICATED [facility] RBC MORPH NOT INDICATED [facility] Procedure Social History Code Duration Value Status Description Data Source(s ) Smoking 02/15/2020 12:00:00 AM EDT Never smoker completed Never s moker [facility] ([facility]) Vital Signs ID Date Data Source UNK Name Value Range Interpretation Code Description Data Source(s) Body weight 84.540 kg 84.540 kg [facility] ([facility]) Body weight 186.38 [lb_av] 186.38 [lb_av] [facility] T ([facility]) Respiratory rate 18 /min 18 /min [facility] ( [facility]) Heart rate 101 /min 101 /[facility] Diastolic blood pressure 70 mm[Hg] 70 mm[Hg] [facility] ([facility]) Systolic blood pressure 104 mm[Hg] 104 mm[Hg] M [facility] ([facility]) Body mass index (BMI) [Ratio] 29.76 kg/m2 Overweight 29.76 kg/m2 [facility] ([facility]) Body weight 86.183 kg 86.183 kg [facility] ([facility]) Body height 170.18 cm 170.18 cm [facility] ([facility]) Body height 170.18 cm 170.18 cm [facility] ([facility]) Body weight 86.184 kg 86.184 kg [facility] ([facility]) Body weight 190.00 [lb_av] 190.00 [lb_av] [facility] T ([facility]) Body temperature 97.9 [degF] 97.9 [degF] [facility] Heart rate 109 /min 109 /min [facility] ([facility]) Diastolic blood pressure 72 mm[Hg] 72 mm[Hg] [facility] ([facility]) Systolic blood pressure 124 mm[Hg] 124 mm[Hg] M [facility] ([facility]) Patient Treatment Plan of Care Planned Activity Planned Date Details Description Data Source (s) Aubra EQ 0.1 mg-20 mcg tablet 01/17/2020 12:00:00 AM EDT [facility] ([facility]) Acetaminophen 300 MG / Codeine Phosphate 30 MG Oral Ta blet 01/17/2020 12:00:00 AM EDT [facility] Misoprostol 0.2 MG Oral Tablet 01/17/2020 12:00:00 AM EDT [facility] ([facility]) Misoprostol 0.2 MG Oral Tablet 01/17/2020 12:00:00 AM EDT [facility] ([facility]) Mifepristone 200 MG Oral Tablet [Mifeprex] 01/17/2020 12:00:00 AM E DT [facility] ([facility]) Ondansetron 4 MG Oral Tablet 01/17/2020 12:00:00 AM EDT [facility] ([facility]) Ibuprofen 800 MG Oral Tablet 01/17/2020 12:00:00 AM EDT [facility] ([facility]) Metronidazole 500 MG Oral Tablet 10/30/2019 12:00:00 AM EST [facility] ([facility]) Metronidazole 500 MG Oral Tablet 10/24/2019 12:00:00 AM EST [facility] ([facility]) Ortho Micronor 0.35 mg tablet 09/29/2019 12:00:00 AM EST [facility] ([facility])
--- OUTSIDE RECORDS SUMMARY | 2020-10-04 11:45 | CCD ---
Author Author [facility] Organization [facility] Address Unknown Phone Unavailable Care Team Providers Care Service Director Name Role Phone Sylvei Akbar MD Unavailable Unavailable Sylvie Akbar MD [...] Unavailable Raffy, Sylvie Boles MD Unavailable Unavailable Rafyf, Sylvie Boles MD Unavailable Unavailable Raffy, Sylvie Boles MD Unavailable Unavailable Raffy, Sylvie oBles MD Unavailable Unavailable Raffy, Sylvie Boles MD [...] Loren Piper MD Unavailable Unavailable Orlando, Loren Pipre MD Unavailable Unavailable Orlando, Loren Piper MD [...] Loren Piper MD Unavailable Unavailable Orlando, Loren iPper MD Unavailable Unavailable Orlando, Loren Piper MD Unavailable Unavailable Orlando, Loren Piper MD Unavailable Unavailable Andrade, Kali Billie TRANSCRIBING OPERATORS SUPERVISOR Unavailable Unavailable Andrade, Kali Billie TRANSCRIBING OPERATORS SUPERVISOR Unavailable Unavailable Andrade, Kali Billie TRANSCRIBING OPERATORS SUPERVISOR Unavailable Unavailable Andrade, Kali Billie TRANSCRIBING OPERATORS SUPERVISOR Unavailable Unavailable Andrade, Kali Billie TRANSCRIBING OPERATORS SUPERVISOR Unavailable Unavailable Andrade, Kali Billie TRANSCRIBING OPERATORS SUPERVISOR Unavailable Unavailable PRYBYLOWSKI, E TWAN PA Unavailable [...] Loren [place] Unavailable Unavailable SHAH, KALI KWAKU CREAM BUYER Unavailable Unavailable SHAH, KALI KWAKU CREAM BUYER Unavailable Unavailable SHAH, KALI KWAKU CREAM BUYER Unavailable Unavailable SHAH, KALI KWAKU CREAM BUYER Unavailable Unavailable SHAH, KALI KWAKU CREAM BUYER Unavailable Unavailable SHAH, KALI KWAKU CREAM BUYER Unavailable Unavailable SHAH, KALI KWAKU CREAM BUYER Unavailable Unavailable SHAH, KALI KWAKU CREAM BUYER Unavailable Unavailable SHAH, KALI KWAKU CREAM BUYER Unavailable Unavailable SHAH, KALI KWAKU CREAM BUYER Unavailable Unavailable SHAH, KALI KWAKU CREAM BUYER Unavailable Unavailable SHAH, KALI KWAKU CREAM BUYER Unavailable Unavailable SHAH, KALI KWAKU CREAM BUYER Unavailable Unavailable SHAH, KALI KWAKU CREAM BUYER Unavailable Unavailable SHAH, KALI KWAKU CREAM BUYER Unavailable Unavailable SHAH, KALI KWAKU CREAM BUYER Unavailable Unavailable SHAH, KALI KWAKU CREAM BUYER Unavailable Unavailable SHAH, KALI KWAKU CREAM BUYER Unavailable Unavailable SHAH, KALI KWAKU CREAM BUYER Unavailable Unavailable SHAH, KALI KWAKU CREAM BUYER Unavailable Unavailable SHAH, KALI KWAKU CREAM BUYER Unavailable Unavailable SHAH, KALI KWAKU CREAM BUYER Unavailable Unavailable SHAH, KALI KWAKU CREAM BUYER Unavailable Unavailable Meghan Mireles PA Unavailable Unavailable [...] is protected by Article 27-F of the [facility] Public Health law. If you continue you may have access to information: Regarding HIV / AIDS; Provided by facilities licensed or operated by the [facility] Office of Mental Health; or Provided by the [facility] Office for People With Developmental Disabilities. If such information is present, then the following [facility] mandated warning applies: This information has been [...] law may result in a fine or fpc sentence or both. A general authorization for the release of medical or other information is NOT sufficient authorization for further disc losure. Allergies and Adverse Reactions Type Description Substance Reaction Status Data Source(s ) No Known Drug Allergies No Known Drug Allergies [facility] No Known Environmental Allergies No Known Environmental Al lergies [facility] No Known Food Allergies No Known Food Allergies [facility] Family History Family Member Name Family Member Gender Family Member Status Date o f Status Description Data Source(s) Unknown Male Problem [facility] ([facility]) Unknown Unknown Problem [facility] ([facility]) Encounters Encounter Providers Location Date Indications Data Source(s ) Emergency Attender: BENI HOODConsultant: Alexa solorzano MD 10/01/2020 04:57:00 AM EST - 10/01/2020 05:42:00 AM [facility] Patient discharged. Emergency Attender: CHAYA Ottltant: Alexa Perry MD 09/01/2020 06:12:00 AM EST - 09/01/2020 06:48:00 AM EST [facility] Patient discharged. Outpatient Attender: KWAKU SHAH NPConsultant: Alexa trimble MD 08/12/2020 02:02:00 PM EST - 08/12/2020 02:02:00 PM EST [facility] Outpatient Attender: KWAKU SHAH CREAM BUYER Family Practice 08/12/2020 01 :00:00 PM EST [facility] ([facility]) Emergency Attender: GARETT KO MDConsultant: Alexa pastor MD 07/06/2020 06:03:00 AM EST - 07/06/2020 08:25:00 AM EST [facility] Patient discharged. Attender: Elvi Simeon 09:24:00 AM EDT - 02/15/2020 09:24:00 AM EDT [facility] ([facility]) OutpatientOFFICE VISIT, EST Attender: Bree munoz 02/14/2020 03:15:00 PM EDT - 02/14/2020 03:15:00 PM EDT Encntr for f/u exam aft trtmt for cond oth than malig neoplmEncounter for oth general cnsl and advice on contraceptionOther sex counseling [facility] ([facility]) Encntr for f/u exam aft trtmt [...] sex counseling [facility] ([facility]) Encntr for f/u exam aft trtmt [...] sex counseling [facility] ([facility]) Encounter for elective termination of pr egnancy Problems related to unwanted Encounter for initial prescription of co ntraceptive pills Encounter for oth general cnsl and advic e on contraception Other sex counseling Outpatient Attender: KWAKU SHAH NPConsultant: Alexa trimble MD 01/04/2020 01:52:00 PM EDT - 01/04/2020 01:52:00 PM EDT [facility] Attender: TWAN Singletray 12:29:00 PM EST - 10/30/2019 12:29:00 PM EST [facility] Attender: Billie Simeon 10/24/2019 01:00:00 PM EST - 10/24/2019 01:00:00 PM EST Trichomonal vulvovaginitisEncntr for f/u exam aft trtmt for cond oth than malig neoplmEncounter for surveillance of contraceptive pillsAcute vaginitisEncounter for ot general cnsl and advice on cont raceptionOther sex counseling [facility] ([facility]) Trichomonal vulvovaginitis Encntr for f/u exam [...] positiveOther sex counseling [facility] ([facility]) Encounter for other preprocedural examin [...] result positive [facility] ([facility]) Nausea Encounter for initial prescription of [...] Medications 08/12/2020 12:00:00 AM EST completed [facility] ([facility]) 168 HR Ethinyl Estradiol 0.60576 MG/HR / norelgestromin 0.04680 MG/HR Transdermal Patch [Xulane] Xulane 08/12/2020 12:00:00 AM EST active [facility] ([facility]) Fluoxetine 20 MG Oral Capsule [Prozac] Prozac 08/12/2020 12:00:00 A M EST active [facility] ([facility]) Fluconazole 150 MG Oral Tablet Fluconazole 07/18/2020 12:00:00 AM EST ORAL completed [facility] ([facility]) 150 mg 07/18/2020 12:00:00 AM EST [...] hours prn [facility] ([facility]) Acetaminophen 300 MG / Codeine Phosphate 30 MG Oral Tablet acetaminophen 300 mg- codeine 30 mg tablet acetaminophen 300 mg-codeine 30 mg tablet 01/17/2020 12:00:00 AM EDT completed 1-2 tabs po every 4 hours prn pain *not to exceed 12 tablets in 24hour period* [facility] ([facility]) Ondansetron 4 MG Oral Tablet ondansetron HCl 4 mg tabl et ondansetron HCl 4 mg tablet 01/17/2020 12:00:00 AM EDT active 1 tab po every 4 hours prn (#4) [facility] ([facility]) Mifepristone 200 MG Oral Tablet [Mifeprex] Mifeprex 20 0 mg tablet Mifeprex 200 mg tablet 01/17/2020 12:00:00 AM EDT complete d Mifepristone 200 MG Oral Tablet [Mifeprex] [facility] ([facility]) 800 mg 01/17/2020 12:00:00 AM EDT tablet 10 TAKE ONE TABLET BY MOUTH EVERY 8 HOURS NEEDED TAKE ONE TABLET BY MOUTH EVERY 8 HOURS NEEDED SOLD: 01/17/2020 [facility] I/O Aubra EQ 0.1 mg-20 mcg tablet {21 (Ethinyl Estradiol 0 .02 MG / Levonorgestrel 0.1 MG Oral Tablet) / 7 (Inert Ingredients 1 MG Oral Tablet) } Pack 01/17/2020 12:00:00 AM EDT active Aubra 28 Day Pack [facility] ([facility]) Eth estra-Levonorgest 0.02-0.1 MG (21) O ral Tablet / Inert 1 MG (7) Oral Tablet 28 Day Pack 0.1-20 mg-mcg LEVONORGESTREL/ETHINYL ESTRADIOL 01/17/2020 12:00:00 AM EDT tablet 84 TAKE ONE TABLET BY MOUTH GREG DAY TAKE ONE TABLET BY MOUTH EVERY DAY SOLD: 01/17/2020 [facility] 300-30 mg 01/17/2020 12:00:00 AM EDT tablet 10 TAKE 1-2 TABLETS BY MOUTH EVERY 4 HOURS NEEDED FOR PAIN MAXIMUM DAILY DOSE = 12 TAKE 1-2 TABLETS BY MOUTH EVERY 4 HOURS NEEDED FOR PAIN MAXIMUM DAILY DOSE = 12 SOLD: 01/17/2020 [facility] Misoprostol 0.2 MG Oral Tablet misoprostol 200 mcg tab let misoprostol 200 mcg tablet 01/17/2020 12:00:00 AM EDT completed 4 tabs buccally 24-48 hrs after mifepristone (#4) [facility] ([facility]) Misoprostol 0.2 MG Oral Tablet misoprostol 200 mcg tab let misoprostol 200 mcg tablet 01/17/2020 12:00:00 AM EDT completed 4 tabs buccally 24-48 hrs after mifepristone (#4) [facility] ([facility]) 150-35 mcg/24 hr 01/04/2020 12:00:00 AM [...] 7d (#14) [facility] ([facility]) 500 mg 10/30/2019 12:00:00 AM EST tablet [...] 7d (#14) [facility] ([facility]) 500 mg 10/24/2019 12:00:00 AM EST tablet [...] Day Pack [facility] ([facility]) 25 mg 09/29/2019 12:00:00 AM EST [...] [place] Plan Information UNHC COMMUNITY PLAN MCDO [id number] SP [id number] [facility] OFFICE OF VICTIM SERVICES [id number] SP [id number] UNHC COMMUNITY PLAN XIX [id number] 18 [id number] HC AMERICHOICE XIX O [id number] 18 [id number] [facility] COMMUNTY PLAN [id number] 18 [id number] [facility] NYCDFHP self NYCDFHP UNHC COMMUNITY PLAN MCDO [id number] SP [id number] ANSI-Medicaid [id number] ANSI-Medicaid [id number] [facility] Communty Plan Medicaid [id number] Self [id number] ANSI-Medicaid [id number] ANSI-Medicaid [id number] [facility] O [id number] S [id number] [facility] COMMUNITY [facility] [id number] SP [id number] [facility] Health Maintenance Organization (HMO) [id number] Self [id number] [facility] [place] Health Maintenance Organization (HMO) [id number] Self [id number] [facility] Health Maintenance Organization (HMO) [id number] Self [id number] [facility] Health Maintenance Organization (HMO) [id number] Self [id number] [facility] Health Maintenance Organization (HMO) [id number] Self [id number] [facility] Health Maintenance Organization (HMO) [id number] Self [id number] UNHC COMMUNITY PLAN MCDHMO [id number] SP [id number] Unhc Community Plan Medicaid Self UNHC COMMUNITY PLAN MC [id number] 18 [id number] [facility] Health Maintenance Organization (HMO) Self MEDICAID [id number] SP [id number] UNHC AMERICHOICE XIX HMO [id number] 18 [id number] BLUE CROSS BLUE SHIELD-O/P [id number] 18 [id number] [employer] BCBS P [id number] S [id number] BLUE CROSS -PHYSICIAN [id number] BL[employer] CROSS BLUE SHIELD-CLINIC [id number] 18 [id number] BLUE CROSS BLUE SHIELD-CLINIC [id number] Problems, Conditions, and Diagnoses Code Display Name Description Problem Type Effective Dates Data Source(s) 294881 Premenstrual dysphoric disorder Premenstrual dysphoric disorder Problem 08/12/2020 12:00:00 AM EST [facility] ([facility]) [id number] [place] Mit[place]esh Problem 01/04/2020 12:00:00 AM EDT [facility] ([facility]) K029 Dental caries, unspecified Dental caries, unspecified Diagnosis 09/01/2020 06:12:00 AM [facility] K0889 Other specified disorders of teeth and s upporting structures Other specified disorders of teeth and supporting structures Diagnosis 09/01/2020 06:12:00 AM [facility] Z3045 Encounter for surveillance o f transdermal patch hormonal contraceptive device Encounter for surveillance of transderma l patch hormonal contraceptive device Diagnosis 08/12/2020 02:02:00 PM [facility] F3281 Premenstrual dysphoric disorder Premenstrual dysphoric disorder Diagnosis 08/12/2020 02:02:00 PM [facility] F411 Generalized anxiety disorder Generalized anxiety disor wesley Diagnosis 07/06/2020 06:03:00 AM [facility] F419 Anxiety disorder, unspecified Anxiety disorder, unspec ified Diagnosis 07/06/2020 06:03:00 AM [facility] Surgeries/Procedures Procedure Description Date Indications Data Source(s) CVR Public Address Systems Mechanic.Svc. STI / H 02/14/2020 12:00:00 AM EDT - 02/14/2020 12:00:00 AM EDT [facility] ([facility]) CVR Public Address Systems Mechanic.Svc. Other 02/14/2020 12:00:00 AM EDT - 2019 12:00:00 AM EDT [facility] ([facility]) CVR Public Address Systems Mechanic.Svc. Contraceptive 02/14/2020 12 :00:00 AM EDT - 02/14/2020 12:00:00 AM EDT [facility] ([facility]) CVR Med.Svc. Height/Weight 02/14/2020 12 :00:00 AM EDT - 02/14/2020 12:00:00 AM EDT [facility] ([facility]) CVR Blood Pressure 02/14/2020 12:00:00 AM EDT - 2019 12:00:00 AM EDT [facility] ([facility]) OFFICE VISIT, EST 02/14/2020 12:00:00 AM EDT - 020 12:00:00 AM EDT [facility] ([facility]) CVR Public Address Systems Mechanic.Svc. Other 01/24/2020 12:00:00 AM EDT - 2019 12:00:00 AM EDT [facility] ([facility]) CVR Public Address Systems Mechanic.Svc. Contraceptive 01/24/2020 12 :00:00 AM EDT - 01/24/2020 12:00:00 AM EDT [facility]) CVR Med.Svc. Height/Weight 01/24/2020 12 :00:00 AM EDT - 01/24/2020 12:00:00 AM EDT [facility] ([facility]) CVR Blood Pressure 01/24/2020 12:00:00 AM EDT - 2019 12:00:00 AM EDT [facility] ([facility]) OFFICE VISIT, EST. Post AB 01/24/2020 12 :00:00 AM EDT - 01/24/2020 12:00:00 AM EDT [facility] ([facility]) Misoprostol, oral, 200 mcg 4 Tabs MAB 12:00:00 AM EDT - 01/17/2020 12:00:00 AM EDT [facility] ([facility]) CVR Public Address Systems Mechanic.Svc. Other 01/17/2020 12:00:00 AM EDT - 2019 12:00:00 AM EDT [facility] ([facility]) CVR Public Address Systems Mechanic.Svc. Options 0 12:00:00 AM EDT - 01/17/2020 12:00:00 AM EDT [facility] ([facility]) Est. Patient MAB Exp Prob Focused 2019 12:00:00 AM EDT - 01/17/2020 12:00:00 AM EDT [facility] ([facility]) Mifeprex, oral, 200 mg 01/17/2020 12:00: 00 AM EDT - 01/17/2020 12:00:00 AM EDT [facility] ([facility]) Results ID Date Data Source [id number] 10/01/2020 04:03:00 [place] [address] RESPIRATORY CARE REPORT ==== ---------NAME------- NUMBER SEX AGE ADMIT DISC. XRAY# F/C ADELINADIAZ Mercer [id number] F 24 10/01/20 10/01/20 [id number] X6B E/R DATE OF : 1995 M/R# [id number] #: [id number] TR-07 LOCATION: [facility] [address] COMPLETE:10/01/20 0 7:50 ED [address] PHYSICIAN: SANA INGRAM Name Value Range Interpretation Code Description Data Erica rce(s) Supporting Document(s) ID Date Data Source [id number] 10/01/2020 04:57:00 AM [facility] 1 OrderSheet [facility] Emergency Department [address] [place] [address] Phone #: ext- [phone] 10/01/2020 04:58 Patient: [...] rce(s) Supporting Document(s) ID Date Data Source [id number] 10/01/2020 04:57:00 AM [facility] 1 Medication Reconciliation Report [facility] Emergency Department [address] [place] [address] Phone #: ext- [phone] 10/01/2020 04:58 Patient: [...] Dispense 3 tablet. Refills: 0. Substitutionpermitted.Pharmacy - [facility] [place], [place] [phone]. . -- Beni Hood M.D. Name Value Range Interpretation Code Description Data Erica rce(s) Supporting Document(s) ID Date Data Source [id number] 10/01/2020 04:57:00 AM EST [facility] 1 Medication Administration Record [facility] Emergency Department [address] [place] [address] Phone #: ext- [phone] 10/01/2020 04:58 Patient: WINDY HARO Sex: F : 1995 Age: 24yWeight: 77.1 kgHeight/Length: 67 inBMI: 26.6ALLERGIES: No Known Drug Allergy Date/Time Medication Administered Medication OrderedGiven ATIVAN [PO] (LORAZEPAM) Ativan PO 1 mg05:21 10/01/2020 Dose: 1 mg Tablets POMiguel Morataya, Name Value Range Interpretation Code Description Data Erica rce(s) Supporting Document(s) ID Date Data Source [id number] 10/01/2020 04:57:00 AM EST [facility] 1 General Instructions [facility] Emergency Department [address] [place] [address] Phone #: ext- [phone] 10/01/2020 04:58 Patient: [...] Dispense 3 tablet. Refills: 0. Substitutionpermitted.Pharmacy - [facility] [address] - [address] [place], [place] [phone]. .Follow-up:Return to the emergency department as needed. [...] becomes more severe, it 2 General Instructions [facility] Emergency Department [address] [place] [address] Phone #: ext- [phone] 10/01/2020 04:58 Patient: [...] obvious. These may include: 3 General Instructions [facility] Emergency Department [address] [place] [address] Phone #: ext- [phone] 10/01/2020 04:58 Patient: [...] andtemporary medicine to help you manage stress.Call [phone] if any of these happen: Trouble breathing Confusion 4 General Instructions [facility] Emergency Department [address] [place] [address] Phone #: ext- [phone] 10/01/2020 04:58 Patient: [...] relieved by rest and mild pain reliever [employer]. [address] [place] [address]. All rights reserved. This information is not [...] Nausea or abdominal distress 5 General Instructions [facility] Emergency Department [address] [place] [address] Phone #: ext- [phone] 10/01/2020 04:58 Patient: [...] this subject.Follow- up care 6 General Instructions [facility] Emergency Department [address] [place] [address] Phone #: ext- [phone] 10/01/2020 04:58 Patient: WINDY HARO Sex: F : 1995 Age: 24yFollow-up with your healthcare provider, or as advised.Call [phone] if you: Have suicidal thoughts, a suicide [...] your symptoms to the point of feeling [id number] Feeling that you may try to harm [...] you to seek help for your symptoms [phone] [employer]. [address] [place] [address]. All rights reserved. This information is not intended as asubstitute for professional medical care. Always follow your healthcare professional's instructions. 7 General Instructions [facility] Emergency Department [address] [place] [address] Phone #: ext- [phone] 10/01/2020 04:58 Patient: WINDY HARO Sex: F : 1995 Age: 24yYou have been given the following additional information:Anxiety ReactionPanic Attack(Electronically signed by Beni Hood M.D. 10/01/2020 06:00) Name Value Range Interpretation Code Description Data Erica rce(s) Supporting Document(s) ID Date Data Source [id number] 10/01/2020 04:57:00 AM EST [facility] 1 Clinical Report - Nurses [facility] Emergency Department [address] [place] [address] Phone #: ext- [phone] 10/01/2020 04:58 Patient: WINDY HARO Sex: F : 1995 Age: 24yTRIAGEArrived by private vehicle. Historian: patient.Acuity: LEVEL 3.Chief Complaint: ("CHEST TIGHTNESS/ANXIETY").Alert. No acute distress.This started just prior to arrival. No difficulty breathing, sweating episodes, nausea or vomiting.Treatment POINTER HELPER:None.SEPSIS SCREEN: SIRS SCREEN NEGATIVE. SEPSIS SCREEN NEGATIVE. [...] carrierof CRE. 2 Clinical Report - Nurses [facility] Emergency Department [address] [place] [address] Phone #: ext- [phone] 10/01/2020 04:58 Patient: [...] band on patient. --05:07 10/01/20 Miguel Morataya.PHYSICAL [id number]:10 10/01/20.GENERAL / NEURO / PSYCH: Alert. Oriented [...] care for this patient has been created. library monitor, NIBP monitor and pulse oximeter placed [...] Miguel Morataya. 3 Clinical Report - Nurses [facility] Emergency Department [address] [place] [address] Phone #: ext- [phone] 10/01/2020 04:58 Patient: [...] Patient verbalized understanding. Written instructions provided in Greenlandic. The patient was discharged by the physician. She was discharged home and accompanied by real estate analyst. She left ambulatory and via private vehicle. Story Analyst driving. --05:47 10/01/20 Miguel Morataya 05:42 10/01/20. BP: 110/81. MAP: 90. HR: 105. RR: 18. O2 saturation: 100%. Temp: 97.9 F. Pain level now: 0/10. Additional comments: Pt states chest tightness is resolved. 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 3 Clinical Report - Physicians/Mid Levels [facility] Emergency Department [address] [place] [address] Phone #: ext- [phone] 10/01/2020 04:58 Patient: [...] Dispense 3 tablet. Refills: 0. Substitution permitted. [facility] [address] [place], [place] [phone]. FaxNumber: . Follow-up: Return to the emergency [...] rce(s) Supporting Document(s) ID Date Data Source [id number] 09/01/2020 06:12:00 AM EST [facility] 1 Medication Reconciliation Report [facility] Emergency Department [address] [place] [address] Phone #: [phone] ext- [phone] 09/01/2020 06:08 Patient: WINDY HARO Sex: F : 1995 Age: 24yWeight: 90.7 kgHeight/Length: 67 in.BMI: 31.3ALLERGIES: No Known Drug AllergyThe patient's Home Medications are listed below:NONE.The source(s) of the original Home Medication information:Not obtained.The following Medications were given to the patient in the Emergency Department:None.The following Medications were prescribed to the patient:[place] 5 mg-325 mg tablet Take 1 tablet every eight hours as needed for pain -- Dispense 10 tablet.Refills: 0. Substitution permitted.[facility] [address] [place] [address] ; [place], [place] [phone]. .amoxicillin 500 mg capsule Take 1 capsule twice a day -- Dispense 20 capsule. Refills: 0. Substitutionpermitted.Pharmacy - [facility] - [address] [place] [address] ; [place], [place] [phone]. . -- Chaya Canada Name Value Range Interpretation Code Description Data Erica rce(s) Supporting Document(s) ID Date Data Source [id number] 09/01/2020 06:12:00 AM [place] [address] Medication Administration Record [facility] Emergency Department [address] [place] [address] Phone #: ext- [phone] 09/01/2020 06:08 Patient: WINDY HARO Sex: F : 1995 Age: 24yWeight: 90.7 kgHeight/Length: 67 inBMI: 31.3ALLERGIES: No Known Drug AllergyDate/Time Medication Administered Medication Ordered Name Value Range Interpretation Code Description Data Erica rce(s) Supporting Document(s) ID Date Data Source [id number] 09/01/2020 06:12:00 AM [facility] 1 General Instructions [facility] Emergency Department [address] [place] [address] Phone #: ext- [phone] 09/01/2020 06:08 Patient: WINDY HARO Sex: F : 1995 Age: 24yDental caries (localized)INSTRUCTIONSWarnings: GENERAL WARNINGS: Return or contact your physician immediately if your conditionworsens or changes unexpectedly, if not improving as expected, or if other problems arise.Prescription Medications:Woodston 5 mg-325 mg tablet Take 1 tablet every eight hours as needed for pain -- Dispense 10 tablet.Refills: 0. Substitution permitted.[facility] [address] [place], [place] [phone]. FaxNumber: .amoxicillin 500 mg capsule Take 1 capsule twice a day -- Dispense 20 capsule. Refills: 0. Substitutionpermitted.[facility] [address] [place], [place] [phone]. .Understanding of the discharge instructions verbalized by patient.Follow-up with: Alexa Perry MD, [facility], , , , , , Follow up Wednesday if not well. Call for an appointment. ADDITIONAL INFORMATIONDental Cavity 2 General Instructions [facility] Emergency Department [address] [place] [address] Phone #: ext- [phone] 09/01/2020 06:08 Patient: WINDY HARO Sex: F [...] cloves at pharmacies. Some pharmacies carry an mlbk-lus-fqgupgm toothache kit. This contains a paste that you can put on the exposed tooth to make it less sensitive. 3 General Instructions [facility] Emergency Department [address] [place] [address] Phone #: ext- [phone] 09/01/2020 06:08 Patient: WINDY HARO Sex: F : 1995 Age: 24y Put a cold pack on your jaw over the sore area to help reduce pain. You may use rmrg-rcn-gyommhk medicine to ease pain, unless another medicine [...] this problem to prevent further tooth damage.Call [phone] if any of these occur: Trouble swallowing [...] drains from the tooth or gum [employer]. [address] [place] [address], [place] [address]. All rights reserved. This information is not intended as asubstitute for professional medical care. Always follow your healthcare professional's instructions. You have been given the following additional information: Dental Cavity 4 General Instructions [facility] Emergency Department [address] [place] [address] Phone #: ext- [phone] 09/01/2020 06:08 Patient: WINDY HARO Sex: F : 1995 Age: 24y(Electronically signed by Chaya Canada 09/01/2020 07:00) Name Value Range Interpretation Code Description Data Erica rce(s) Supporting Document(s) ID Date Data Source [id number] 09/01/2020 06:12:00 AM EST [facility] 1 Clinical Report - Nurses [facility] Emergency Department [address] [place] [address] Phone #: ext- [phone] 09/01/2020 06:08 Patient: [...] been able to see a dentist yet.).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 [...] patient has not traveled outside the Clinical [facility] - Nurses [facility] Emergency Department [address] [place] [address] Phone #: jfb- [phone] 09/01/2020 06:08 [id number] Sex: F : 1995 Age: 24y [place] [...] Iniguez R.N. 3 Clinical Report - Nurses [facility] Emergency Department [address] [place] [address] Phone #: ext- [phone] 09/01/2020 06:08 Patient: WINDY HARO Sex: F [...] Patient verbalized understanding. Written instructions provided in Greenlandic. The patient was discharged home. She left [...] rce(s) Supporting Document(s) ID Date Data Source [id number] 09/01/2020 06:12:00 AM [facility] 1 Clinical Report - Physicians/Mid Levels [facility] Emergency Department [address] [place] [address] Phone #: ext- [phone] 09/01/2020 06:08 [id number] Sex: F : 1995 Age: 24y Time [...] history. 2 Clinical Report - Physicians/Mid Levels [facility] Emergency Department [address] [place] [address] Phone #: ext- [phone] 09/01/2020 06:08 [id number] Sex: F : 1995 Age: 24yADDITIONAL NOTESThe [...] of Care: 06:36 09/01/20. continue with Amoxicillin. Woodston for pain. Disposition: Discharged. Condition: stable.CLINICAL IMPRESSION Dental caries (localized)INSTRUCTIONS Warnings: GENERAL WARNINGS: Return or contact your physician immediately if your condition worsens or changes unexpectedly, if not improving as expected, or if other problems arise. Prescription Medications: Woodston 5 mg-325 mg tablet Take 1 tablet every eight hours as needed for pain -- Dispense 10 tablet. Refills: 0. Substitution permitted. [facility] [phone]. . amoxicillin 500 mg capsule Take 1 capsule twice a day -- Dispense 20 capsule. Refills: 0. Substitution permitted. [facility] - [address] [place] [phone]. FaxNumber: [phone]. 3 Clinical Report - Physicians/Mid Levels [facility] Emergency Department [address] [place], [place] [address] Phone #: ext- [phone] 09/01/2020 06:08 Patient: WINDY HARO Sex: F : 1995 Age: 24y Understanding of the discharge instructions verbalized by patient. Follow-up with: Alexa Perry MD, [facility], , , , , , Follow up Wednesday if not well. Call for an appointment.(Electronically signed by Chaya Canada 09/01/2020 07:00) Name Value Range Interpretation Code Description Data Erica rce(s) Supporting Document(s) ID Date Data Source [id number] 07/08/2020 09:59:00 [place] [address] PHONE: [phone] FAX: [phone] Name .................. : ESTRELLITA Mercer Acct Number.................. : [id number] ROOM. ................. : TR-07 MR Number ................... : [id number] Stay type ............. : E/R Discharge Date......... ... : 07/06/20 Admit Date ......... : 07/06/20 Admit Phys .................... : MAIKEL MCNEAL Date of ....... : 1995 Family Phys ................... : ORLANDO STINSON Phone .................. : [phone] Age ................................ : 24 Film# .................. .:[id number] Sex ................................. : F Unsigned transcriptions are preliminary reports and do not represent a medical or legal document CHEST 2 VIEWS [id number] COMPLETE:07/06/20 08:19 KJE 54125 Reason(s): Shortness of Breath CHEST X-RAY: PA [...] rce(s) Supporting Document(s) ID Date Data Source [id number] 07/08/2020 09:39:00 AM [facility] [address] [place] [address] RESPIRATORY CARE REPORT ==== ---------NAME------- NUMBER SEX AGE ADMIT DISC. XRAY# F/C KINGSLEY Mercer [id number] F 24 07/06/20 07/06/20 [id number] X6B E/R DATE OF : 1995 M/R# [id number] #: [id number] RM TR-07 LOCATION: EMERGENCY DEPT [facility] [address] COMP LETE:07/06/20 08:58 CJM 44325 PHYSICIAN: MAIKEL MCNEAL Name Value Range Interpretation Code Description Data Erica rce(s) Supporting Document(s) ID Date Data Source [id number] 07/06/2020 06:03:00 AM EST [facility] 1 OrderSheet [facility] Emergency Department [address] [place] [address] Phone #: ext- [phone] 07/06/2020 06:01 Patient: [...] Laura Laura R.N. Physician; R.NStephen 2 OrderSheet [facility] Emergency Department [address] [place] [address] Phone #: ext- [phone] 07/06/2020 06:01 Patient: [...] rce(s) Supporting Document(s) ID Date Data Source [id number] 07/06/2020 06:03:00 AM EST [facility] 1 Medication Reconciliation Report [facility] Emergency Department [address] [place] [address] Phone #: [facility]- [phone] 07/06/2020 06:01 Patient: WINDY HARO Sex: F [...] 28 tablet. Refills: 0. Substitution permitted.Pharmacy - [facility] - [address] [place], [place] [phone]. . -- Ag Lorene, Physician Name Value Range Interpretation Code Description Data [facility] rce(s) Supporting Document(s) ID Date Data Source [id number] 07/06/2020 06:03:00 AM [facility] 1 Medication Administration Record [facility] Emergency Department [address] [place] [address] Phone #: ext [phone] 07/06/2020 06:01 Patient: WINDY AHRO Sex: F : 1995 Age: 24yWeight: 79.3 kgHeight/Length: 68 inBMI: 26.6ALLERGIES: No Known Drug AllergyDate/Time Medication Administered Medication Ordered Name Value Range Interpretation Code Description Data [facility](s) Supporting Document(s) ID Date Data Source [id number] 07/06/2020 06:03:00 AM [facility] 1 General Instructions [facility] Emergency Department [address] [place] [address] Phone #: ext [phone] 07/06/2020 06:01 Patient: WINDY HARO Sex: F [...] 28 tablet. Refills: 0. Substitution permitted.Pharmacy - [facility]30 - [address] [facility] ; [place], [place] [phone]. . 2 General Instructions [facility] Emergency Department [address] [place] [address] Phone #: ext- [phone] 07/06/2020 06:01 Patient: WINDY HARO Sex: F [...] others. They can also [address] [facility] Emergency Department [address] [place] [address] Phone #: ext- [phone] 07/06/2020 06:01 Patient: [...] with your healthcare provider, or as advised.Call [phone] if you: Have suicidal thoughts, a suicide plan, and the means to carry out the plan Have serious thoughts of hurting someone else Have trouble breathing 4 General Instructions [facility] Emergency Department [address] [place] [address] Phone #: ext- [phone] 07/06/2020 06:01 Patient: [...] your symptoms to the point of feeling drd-ur-jiwbnpz Feeling that you may try to harm [...] you to seek help for your symptoms [phone] [employer]. [address] [place] [address], [place] [address]. All rights reserved. This information is not intended as asubstitute for professional medical care. Always follow your healthcare professional's instructions. You have been given the following additional information: Panic Attack(Electronically signed by Ag Paulson, Physician 07/06/2020 08:33) 5 General Instructions [facility] Emergency Department [address] [place] [address] Phone #: ext- [phone] 07/06/2020 06:01 Patient: WINDY HARO Sex: F : 1995 Age: 24y Name Value Range Interpretation Code Description Data Erica rce(s) Supporting Document(s) ID Date Data Source [id number] 07/06/2020 06:03:00 AM EST [facility] 1 Clinical Report - Nurses [facility] Emergency Department [address] [place] [address] Phone #: ext- [phone] 07/06/2020 06:01 Patient: [...] of anxiety anddenies being prescribed any medication.).Treatment POINTER HELPER:None. --06:07 07/06/20 Mariann Scruggs R.N.06:03 07/06/20. BP: [...] to the 2 Clinical Report - Nurses [facility] Emergency Department [address] [place] [address] Phone #: ext- [phone] 07/06/2020 06:01 Patient: [...] level now: 3 Clinical Report - Nurses [facility] Emergency Department [address] [place] [address] Phone #: ext- [phone] 07/06/2020 06:01 Patient: WINDY HARO Sex: F : 1995 Age: 24y 0/10. --07:20 07/06/20 Mariann Scruggs R.N. The patient reports no complaints and she is calm and resting quietly. ( Pt was using phone upon entering room, [facility]; Pt states she feels much less [...] Patient walked to radiology with mask and technical assistance consultant. --08:21 07/06/20 Elinor Jennings RN 08:17 07/06/20. Patient walked back from radiology with mask and technical assistance consultant. --08:21 07/06/20 Elinor Jennings RN.DISPOSITION / DISCHARGE [...] Patient verbalized understanding. Written instructions provided in Greenlandic. The patient was discharged by the physician. [...] Meyers R.N. 4 Clinical Report - Nurses [facility] Emergency Department [address] [place] [address] Phone #: ext- [phone] 07/06/2020 06:01 Patient: WINDY HARO Sex: F : 1995 Age: 24yLocked/Released at 07/06/2020 08:28 by Qiana Meyers R.N. Name Value Range Interpretation Code Description Data Erica rce(s) Supporting Document(s) ID Date Data Source [id number] 07/06/2020 06:03:00 AM EST [facility] 1 Clinical Report - Physicians/Mid Levels [facility] Emergency Department [address] [place] [address] Phone #: ext- [phone] 07/06/2020 06:01 Patient: [...] Heart sounds normal. 2 Clinical Report - Physicians/[facility] Emergency Department [address] [place] [address] Phone #: ext- [phone] 07/06/2020 06:01 Patient: [...] viewed by me. Normal sinus rhythm. Normal SC interval. Normal QRScomplexes. Normal STs and T [...] NEGAT 3 Clinical Report - Physicians/Mid Levels [facility] Emergency Department [address] [place] [address] Phone #: ext- [phone] 07/06/2020 06:01 Patient: WINDY HARO Sex: F : 1995 Age: 24y HCG SERUM QL REENTER NEGATIVE (NORMAL: NEGAT { KIT LOT # [id number] ){ KIT EXP DATE06.04.21 ){ PROCEDURAL CONTROL VALID)Acetaminophen Level: (JULIANO: 07/06/2020 07:07) ( MsgRcvd 07/06/2020 07:38) Final results Test Result Flag Units (Reference) ACETAMINOPHEN <5.0 UG/ML (0.0 - 30.0)Salicylate Level: (JULIANO: 07/06/2020 07:07) ( MsgRcvd 07/06/2020 07:38) Final results Test Result Flag Units (Reference) SALICYLATE <0.3 L mg/dL (2.0 - 20.0)ETOH: (JULIANO: 07/06/2020 07:07) ( [facility] 07/06/2020 07:38) Final results Test Result Flag Units (Reference) ALCOHOL <10.0 MG/DL ALCOHOL % 0.00 % (0.00 - 0.01) *FOR MEDICAL PURPOSES ONLY*CBC w Diff: (JULIANO: 07/06/2020 07:07) ( [facility] 07/06/2020 07:30) Final results Test Result Flag [...] PANEL 4 Clinical Report - Physicians/Mid Levels [facility] Emergency Department [address] [place] [address] Phone #: ext- [phone] 07/06/2020 06:01 Patient: [...] operate 5 Clinical Report - Physicians/Mid Levels [facility] Emergency Department [address] [place] [address] Phone #: jhg- [phone] 07/06/2020 06:01 Patient: WINDY HARO Sex: F [...] tablet. Refills: 0. Substitution permitted. Pharmacy - [facility] - [address] [facility] ; [place], [place] [phone]. . Follow-up: Follow up with your healthcare provider in three days if not better. Call for an appointment. Reason for referral: evaluation. Summary of care provided to patient via paper. Understanding of the discharge instructions verbalized by patient.(Electronically signed by Ag Paulson, Physician 07/06/2020 08:33) Name Value Range Interpretation Code Description Data Erica rce(s) Supporting Document(s) ID Date Data Source [id number] 07/06/2020 08:24:00 AM [facility] Name Value Range Interpretation Code Description Data Erica rce(s) Supporting Document(s) DRUG SCREEN URINE [facility] URINE DRUG SCREEN Amphetamine [Presence] in Urine by Screen method NEGATIVE NORMAL: N EGATIVE [facility] BARBITURATES NEGATIVE NORMAL: NEGATIVE [facility] BENZO NEGATIVE NORMAL: NEGATIVE [facility] COCAINE NEGATIVE NORMAL: NEGATIVE [facility] Tetrahydrocannabinol [Presence] in Urine NEGATIVE NORMAL: NEGATIVE [facility] OPIATES NEGATIVE NORMAL: NEGATIVE [facility] Phencyclidine [Presence] in Urine by Screen method NEGATIVE NOR MAL: NEGATIVE [facility] \\BLDo\\URINE DRUG SCR EEN INTERPRETATION\\BLDx\\ THE CUTOFFF LEVELS FOR DETECTION ARE FOLLOWS: AMPHETAMINES 1000 ng/ml BARBITUARATES 200 ng/ml BENZODIAZEPINES 100 ng/ml THC 50 ng/ml PHENCYCLIDINE 25 ng/ml OPIATES 300 ng/ml COCAINE 300 ng/ml ALL POSITIVES ARE CONSIDERED PRESUMPTIVE POSITIVE CONFIRMATION WILL BE PERFORMED AT PHYSICIAN REQUEST. ID Date Data Source [id number] 07/06/2020 08:15:00 AM [facility] Name Value Range Interpretation Code Description Data Erica rce(s) Supporting Document(s) URINALYSIS [facility] URINALYSIS SOURCE R [facility] COLOR yellow NORMAL: Yellow [facility] CLARITY hazy NORMAL: Clear [facility] Specific gravity of Urine by Test strip 1.015 1.001 - 1.030 [facility] pH 6 5 - 9 [facility] Glucose [Mass/volume] in Urine by Test strip NORM NORMAL: Negat [facility] Bilirubin.total [Presence] in Urine by Test strip NEG NORMAL: Negative [facility] Ketones [Presence] in Urine by Test strip NEG NORMAL: Negative [facility] Protein [Mass/volume] in Urine by Test strip NEG NORMAL: Negat [facility] Nitrite [Presence] in Urine by Test strip NEG NORMAL: Negative [facility] BLOOD NEG NORMAL: Negative [facility] Leukocyte esterase [Presence] in Urine by Test strip NEG PEDRO L: Negative [facility] Urobilinogen [Mass/volume] in Urine by Test strip NOR less christo n 1.0 mg/dL [facility] MICROSCOPIC Not Indicate [facility] ID Date Data Source [id number] 07/06/2020 07:48:00 AM EST [facility] Name Value Range Interpretation Code Description Data Erica rce(s) Supporting Document(s) HCG SERUM QUAL NEGATIVE NORMAL: NEGATIVE [facility] HCG SERUM QL REENTER NEGATIVE NORMAL: NEGATIVE [facility] { KIT LOT # [id number] ){ KIT EXP DATE 06.04.21 ){ PROCEDURAL CONTROL VALID ) ID Date Data Source [id number] 07/06/2020 07:38:00 AM [facility] Name Value Range Interpretation Code Description Data Erica rce(s) Supporting Document(s) COMPREHENSIVE METABOLIC PANEL [facility] COMPREHENSIVE METABOLIC PANEL Sodium [Moles/volume] in Serum or Plasma 138 mEq/L 134 - 153 [facility] Potassium [Moles/volume] in Serum or Plasma 3.6 mEq/L 3.6 - 5.0 [facility] Chloride [Moles/volume] in Serum or Plasma 101 mEq/L 98 - 107 [facility] Carbon dioxide, total [Moles/volume] in Serum or Plasma 29 MEQ/L 22 - 30 [facility] Glucose [Mass/volume] in Serum or Plasma 96 MG/DL 65 - 110 [facility] BUN 5 MG/DL 7 - [address] [facility] Creatinine [Mass/volume] in Serum or Plasma 0.5 MG/DL 0.7 - 1.5 L [facility] BUN/CREAT 10 8 - 27 [facility] al Protein [Mass/volume] in Serum or Plasma 7.6 G/DL 6.3 - 8.2 [facility] Albumin [Mass/volume] in Serum or Plasma 4.5 G/DL 3.9 - 5.0 [facility] Globulin [Mass/volume] in Serum by calculation 3.1 GM/DL 2.4 - 3.2 [facility] A/G RATIO 1.5 0.8 - 2.0 [facility] Calcium [Mass/volume] in Serum or Plasma 9.5 MG/DL 8.4 - 10.2 [facility] Bilirubin.total [Mass/volume] in Serum or Plasma 1.2 MG/DL 0.2 - 1.3 [facility] Alkaline phosphatase [Enzymatic activity/volume] in Serum or Plasma 89 U/L 38 - 126 [facility] Aspartate aminotransferase [Enzymatic activity/volume] in Serum or Plasma 18 U/L 5 - 40 [facility] Alanine aminotransferase [Enzymatic activity/volume] in Seru m or Plasma 14 U/L 7 - 56 [facility] Anion gap 3 in Serum or Plasma 8.0 mmol/L 8.0 - 16.0 [facility] AGE 24 yrs [facility] NON-AA GFR >60 mL/min [facility] AFR AMER GFR >60 mL/min [facility] Male GFR In terprentation [...] >32 mL/min Normal ID Date Data Source [id number] 07/06/2020 07:38:00 AM EST [facility] Name Value Range Interpretation Code Description Data Erica rce(s) Supporting Document(s) Ethanol [Moles/volume] in Blood <10.0 MG/DL [facility] ALCOHOL % 0.00 % 0.00 - 0.01 [facility] *FOR MEDICAL PURPOSES ONLY * ID Date Data Source [id number] 07/06/2020 07:38:00 AM [facility] Name Value Range Interpretation Code Description Data Erica rce(s) Supporting Document(s) SALICYLATE <0.3 mg/dL 2.0 - 20.0 L [facility] ID Date Data Source [id number] 07/06/2020 07:38:00 AM [facility] Name Value Range Interpretation Code Description Data Erica rce(s) Supporting Document(s) Acetaminophen [Presence] in Urine <5.0 UG/ML 0.0 - 30.0 [facility] ID Date Data Source [id number] 07/06/2020 07:30:00 AM [facility] Name Value Range Interpretation Code Description Data Erica rce(s) Supporting Document(s) CBC W/AUTOMATED DIFF [facility] COMPLETE BLOOD COUNT Leukocytes [#/volume] in Blood by Automated count 7.6 10^3/uL 4.2 - 1 1.0 [facility] Erythrocytes [#/volume] in Blood by Automated count 4.76 10^6/uL 4. 20 - 5.40 [facility] Hemoglobin [Mass/volume] in Blood 14.0 g/dL 12.0 - 16.0 [facility] Hematocrit [Volume Fraction] of Blood by Automated count 42.0 % 3 7.0 - 47.0 [facility] Erythrocyte mean corpuscular volume [Entitic volume] by Auto mated count 88.2 fL 81.0 - 101 [facility] Erythrocyte mean corpuscular hemoglobin [Entitic mass] by Automated count 29.4 pg 27.0 - 34.0 [facility] Erythrocyte mean corpuscular hemoglobin concentration [Mass/volume] by Automated count 33.3 g/dL 31.0 - 36.0 [facility] Erythrocyte distribution width [Ratio] by Automated count 12.2 % 11.5 - 14.5 [facility] Platelets [#/volume] in Blood by Automated count 310 10^3/uL 150 - 45 0 [facility] Platelet mean volume [Entitic volume] in Blood by Automated count 11.0 fL 7.4 - 10.4 H [facility] Neutrophils/100 leukocytes in Blood by Automated count 58.4 % 37. 0 - 80.0 [facility] Lymphocytes/100 leukocytes in Blood by Manual count 32.5 % 25.0 - 40.0 [facility] Monocytes/100 leukocytes in Blood by Automated count 6.0 % 3.0 - 8.0 [facility] Eosinophils/100 leukocytes in Blood by Automated count 1.6 % 0.0 - 7.0 [facility] Basophils/100 leukocytes in Blood by Automated count 1.1 % 0.0 - 2.5 [facility] %IG 0.4 % 0.0 - 0.[address] [facility] %NRBC 0.0 % 0.0 - 0.0 [facility] al Neutrophils [#/volume] in Blood by Automated count 4.42 10^3/uL 2.00 - 6.90 [facility] Lymphocytes [#/volume] in Blood by Automated count 2.45 10^3/uL 0.60 - 3.40 [facility] Monocytes [#/volume] in Blood by Automated count 0.45 10^3/uL 0.00 - 0.90 [facility] Eosinophils [#/volume] in Blood by Automated count 0.12 10^3/uL 0.00 - 0.70 [facility] Basophils [#/volume] in Blood by Automated count 0.08 10^3/uL 0.00 - 0.20 [facility] #IG 0.03 10^3/uL 0.00 - 0.10 [facility]ital #NRBC 0.00 10^3/uL 0.00 - 0.00 [facility] MANUAL DIFF NOT INDICATED [facility] RBC MORPH NOT INDICATED [facility] Procedure Social History Code Duration Value Status Description Data Source(s ) Smoking 02/15/2020 12:00:00 AM EDT Never smoker completed Never s moker [employer] ([facility]) Vital Signs ID Date Data Source UNK Name Value Range Interpretation Code Description Data Source(s) Body weight 84.540 kg 84.540 kg [facility] ([facility]) Body weight 186.38 [lb_av] 186.38 [lb_av] MEDEN T ([facility]) Respiratory rate 18 /min 18 /min [facility] ( [facility]) Heart rate 101 /min 101 /[facility] Diastolic blood pressure 70 mm[Hg] 70 mm[Hg] [facility] ([facility]) Systolic blood pressure 104 mm[Hg] 104 mm[Hg] M EDENT ([facility]) Body mass index (BMI) [Ratio] 29.76 kg/m2 Overweight 29.76 kg/m2 [facility] ([facility]) Body weight 86.183 kg 86.183 kg [facility] ([facility] Body height 170.18 cm 170.18 cm [facility] ([facility]) Body height 170.18 cm 170.18 cm [facility] ([facility]) Body weight 86.184 kg 86.184 kg [facility] ([facility]) Body weight 190.00 [lb_av] 190.00 [lb_av] MEDEN T ([facility]) Body temperature 97.9 [degF] 97.9 [degF] [facility] Heart rate 109 /min 109 /min [facility] ([facility]) Diastolic blood pressure 72 mm[Hg] 72 mm[Hg] [facility] ([facility]) Systolic blood pressure 124 mm[Hg] 124 mm[Hg] M EDENT ([facility]) Patient Treatment Plan of Care Planned Activity Planned Date Details Description Data Source (s) Aubra EQ 0.1 mg-20 mcg tablet 01/17/2020 12:00:00 AM EDT [facility] ([facility]) Acetaminophen 300 MG / Codeine Phosphate 30 MG Oral Ta blet 01/17/2020 12:00:00 AM EDT [facility] Misoprostol 0.2 MG Oral Tablet 01/17/2020 12:00:00 AM EDT [facility] ([facility]) Misoprostol 0.2 MG Oral Tablet 01/17/2020 12:00:00 AM EDT [facility] ([facility]) Mifepristone 200 MG Oral Tablet [Mifeprex] 01/17/2020 12:00:00 AM E DT [facility] ([facility]) Ondansetron 4 MG Oral Tablet 01/17/2020 12:00:00 AM EDT [facility] ([facility]) Ibuprofen 800 MG Oral Tablet 01/17/2020 12:00:00 AM EDT [facility] ([facility]) Metronidazole 500 MG Oral Tablet 10/30/2019 12:00:00 AM EST [facility] ([facility]) Metronidazole 500 MG Oral Tablet 10/24/2019 12:00:00 AM EST [facility] ([facility]) Ortho Micronor 0.35 mg tablet 09/29/2019 12:00:00 AM EST [facility] ([facility])
[2020-10-04 11:46] LABS: BASO # 0.1 10^3/uL (0.0-0.2); EOS # 0.1 10^3/uL (0.0-0.5); EOS % 0.7 % (0.0-3.0); HEMATOCRIT 43.8 % (36.0-47.0); HEMOGLOBIN 14.4 g/dl (12.0-15.5); LYMPH # 1.8 10^3/uL (1.5-5.0); LYMPH % 26.1 % (24.0-44.0); MEAN CORPUSCULAR HEMOGLOBIN 29.1 pg (27.0-33.0); MEAN CORPUSCULAR HGB CONC 32.9 g/dl (32.0-36.5); MEAN CORPUSCULAR VOLUME 88.5 fl (80.0-96.0); MONO # 0.5 10^3/uL (0.0-0.8); MONO % 7.3 % (0.0-5.0); NEUTROPHILS # 4.5 10^3/uL (1.5-8.5); NEUTROPHILS % 64.5 % (36.0-66.0); RED BLOOD COUNT 4.95 10^6/uL (4.00-5.40)
[2020-10-04 12:21] LABS: HCG, SERUM QUALITATIVE NEGATIVE (NEGATIVE)
[2020-10-04 12:25] LABS: ALBUMIN 4.3 GM/DL (3.2-5.2); ALT/SGPT 19 U/L (12-78); BILIRUBIN,DIRECT 0.4 MG/DL (0.0-0.2); BILIRUBIN,TOTAL 3.4 MG/DL (0.2-1.0); BLOOD UREA NITROGEN 11 MG/DL (7-18); CALCIUM LEVEL 9.7 MG/DL (8.5-10.1); CARBON DIOXIDE LEVEL 25 MEQ/L (21-32); CHLORIDE LEVEL 104 MEQ/L (98-107); CREATININE FOR GFR 0.73 MG/DL (0.55-1.30); GLOMERULAR FILTRATION RATE > 60.0 (>60); GLUCOSE, FASTING 95 MG/DL (70-100); LIPASE 88 U/L (73-393); POTASSIUM SERUM 4.2 MEQ/L (3.5-5.1); SODIUM LEVEL 137 MEQ/L (136-145); TOTAL PROTEIN 8.2 GM/DL (6.4-8.2)
[2020-10-04] MEDS ORDERED: OMEP40CA97 PO (13:26)
[2020-10-04 13:30] LABS: CK-MB VALUE MASS < 1.0 NG/ML (<3.6); CPK CREATINE PHOSPHOKINASE 104 U/L (26-192); MB/CK RELATIVE INDEX 0.96 (< OR =4); TROPONIN I < 0.02 NG/ML (< 0.10)
[2020-10-04 13:53] VITALS: BP 115/74
--- NOTE | 2020-10-04 20:01 | ECGEPIP ---
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
== END 2020-10-04 13:54 | disposition home or self-care (01) ==
LOC: M ED 11:15
DX: K21.9 Gastro-esophageal reflux disease without esophagitis (principal); F41.9 Anxiety disorder, unspecified; Z79.899 Other long term (current) drug therapy

== ENCOUNTER → 2022-07-14 | Outpatient (REF) | payer OTHER ==
[~2022-07-14] MED LIST changes: +OMEP40CA4 PO; +PEPC10TA6 PO; +XANA0.25 PO
== END ==
LOC: M WUC 17:16
PROVIDERS: ATTEND Physician Assistant
DX: R30.0 Dysuria (principal)

== ENCOUNTER → 2023-11-08 | Outpatient (REF) | payer OTHER ==
[~2023-11-08] MED LIST changes: +LORA1TAB23 PO; -LORA1TAB4 PO
[2023-11-08 21:54] LABS: APPEARANCE, URINE HAZY (CLEAR); BACTERIA, URINE AUTO NEGATIVE (NEGATIVE); BILIRUBIN, URINE AUTO NEGATIVE (NEGATIVE); BLOOD, URINE BLOOD NEGATIVE (NEGATIVE); COLOR, URINE AMBER (YELLOW); GLUCOSE, URINE (UA) AUTO NEGATIVE (NEGATIVE); KETONE, URINE AUTO NEGATIVE (NEGATIVE); LEUKOCYTE ESTERASE, URINE AUTO NEGATIVE (NEGATIVE); MUCUS, URINE LARGE (NEGATIVE); NITRITE, URINE AUTO NEGATIVE (NEGATIVE); PROTEIN, URINE AUTO 1+ mg/dL (NEGATIVE); RBC, URINE AUTO 0 /HPF (0-3); SPECIFIC GRAVITY URINE AUTO 1.024 (1.002-1.035); SQUAMOUS EPITHELIAL CELL UR AU 10 /HPF (0-6); WBC, URINE AUTO 2 /HPF (0-3)
== END ==
LOC: M LAB REF 21:31
PROVIDERS: ATTEND Physician Assistant Medical
DX: N39.0 Urinary tract infection, site not specified (principal)

== ENCOUNTER → 2023-11-20 | Outpatient (REF) | payer OTHER ==
[2023-11-20 19:09] LABS: APPEARANCE, URINE HAZY (CLEAR); BACTERIA, URINE AUTO NEGATIVE (NEGATIVE); BILIRUBIN, URINE AUTO NEGATIVE (NEGATIVE); BLOOD, URINE BLOOD 1+ (NEGATIVE); COLOR, URINE YELLOW (YELLOW); GLUCOSE, URINE (UA) AUTO NEGATIVE (NEGATIVE); KETONE, URINE AUTO NEGATIVE (NEGATIVE); LEUKOCYTE ESTERASE, URINE AUTO NEGATIVE (NEGATIVE); MUCUS, URINE SMALL (NEGATIVE); NITRITE, URINE AUTO NEGATIVE (NEGATIVE); PROTEIN, URINE AUTO NEGATIVE (NEGATIVE); RBC, URINE AUTO 1 /HPF (0-3); SPECIFIC GRAVITY URINE AUTO 1.027 (1.002-1.035); SQUAMOUS EPITHELIAL CELL UR AU 5 /HPF (0-6); UROBILINOGEN, URINE AUTO 0.2 mg/dL (0.0-2.0); WBC, URINE AUTO 2 /HPF (0-3)
[2023-11-20 20:19] LABS: Trichomonas vaginalis (AMP) NOT DETECTED (NEGATIVE)
== END ==
LOC: M LAB REF 18:28
PROVIDERS: ATTEND Physician Assistant Medical
DX: N39.0 Urinary tract infection, site not specified (principal)

== ENCOUNTER → 2024-09-05 | Outpatient (REF) | payer OTHER ==
[2024-09-05 17:09] LABS: APPEARANCE, URINE HAZY (CLEAR); BACTERIA, URINE AUTO NEGATIVE (NEGATIVE); BILIRUBIN, URINE AUTO NEGATIVE (NEGATIVE); BLOOD, URINE BLOOD NEGATIVE (NEGATIVE); COLOR, URINE AMBER (YELLOW); GLUCOSE, URINE (UA) AUTO NEGATIVE (NEGATIVE); KETONE, URINE AUTO NEGATIVE (NEGATIVE); LEUKOCYTE ESTERASE, URINE AUTO NEGATIVE (NEGATIVE); MUCUS, URINE LARGE (NEGATIVE); NITRITE, URINE AUTO NEGATIVE (NEGATIVE); PROTEIN, URINE AUTO 1+ mg/dL (NEGATIVE); RBC, URINE AUTO 3 /HPF (0-3); SPECIFIC GRAVITY URINE AUTO 1.029 (1.002-1.035); SQUAMOUS EPITHELIAL CELL UR AU 4 /HPF (0-6); WBC, URINE AUTO 10 /HPF (0-3)
== END ==
LOC: M LAB REF 16:14
PROVIDERS: ATTEND Physician Assistant Medical
DX: N39.0 Urinary tract infection, site not specified (principal)